=== PATIENT | female | born 1985 | race Caucasian/White ===

== ENCOUNTER → 2017-12-05 08:13 | Outpatient (CLI) | payer OTHER, SELFPAY ==
[2017-12-08 14:14] LABS: HPV Reflexed? NOT INDICATED
== END ==
PROVIDERS: Family Provider Nurse Practitioner; PCP Nurse Practitioner; Visit Provider Obstetrics & Gynecology
DX: Z12.4 Encounter for screening for malignant neoplasm of cervix (principal)
CPT/HCPCS: 88175; G0145

== ENCOUNTER → 2017-12-20 09:40 | Outpatient (CLI) | payer OTHER, SELFPAY ==
[2017-12-20 11:00] LABS: Valproic Acid (Depakene) Level 96 ug/mL (50-100)
[2017-12-20 11:24] LABS: Free T3 3.1 pg/mL (2.18-3.98); T4 Free Direct 1.13 ng/dL (0.76-1.46); Thyroid Stim Hormone (TSH) < 0.01 uIU/mL (0.358-3.74)
== END ==
PROVIDERS: Family Provider Nurse Practitioner; PCP Nurse Practitioner; Visit Provider Nurse Practitioner
DX: E03.9 Hypothyroidism, unspecified (principal); Z51.81 Encounter for therapeutic drug level monitoring
CPT/HCPCS: 36415; 80164; 84439; 84443; 84481

== ENCOUNTER → 2018-01-27 12:44 | Outpatient (CLI) | payer OTHER, SELFPAY ==
[2018-01-27 13:44] LABS: Absolute Lymphocyte Count 3.27 X10^3/ul (0.83-4.51); Absolute Neutrophil Count 3.3 X10^3/uL (2.0-7.7); Basophil# 0.03 X10^3/uL; Basophil% 0.4 % (0-1); Eosinophil# 0.12 X10^3/uL; Eosinophils% 1.7 % (0-5); Hemoglobin 11.6 g/dl (12.0-15.0); Lymphocyte # 3.27 X10^3/ul (4.0); Mean Corp Hgb Conc 31.4 g/gl (32-36); Mean Corpuscular Hgb 25.4 pg (27.0-32.0); Mean Corpuscular Volume 81.1 fL (81-99); Mean Platelet Vol. 10.1 fl (6.2-12.0); Monocyte# 0.51 X10^3/uL; Neutrophil # 3.34 X10^3/uL (2.7-7.7); Neutrophil % 45.9 % (47-70); POSITIVE COUNT NO; POSITIVE DIFFERENTIAL NO; POSITIVE MORPHOLOGY NO; Platelet Count 184 K/mm3 (150-450); RBC Distribution Width CV 13.8 % (11.6-14.6); RBC Distribution Width SD 40.9 fl (35.1-43.9); Red Blood Count 4.56 M/mm3 (4.2-5.4); White Blood Count 7.3 K/mm3 (4.4-11.0)
[2018-01-27 14:34] LABS: Anion Gap 6 (5-15); BUN 6 mg/dL (7-18); BUN/Creat Ratio 7.3 RATIO (10-20); Calcium,Total 8.8 mg/dL (8.5-10.1); Chloride 107 mmol/L (98-107); Creatinine, Serum 0.82 mg/dL (0.55-1.02); EST Glomerular Filtration Rate 84 mL/min (>60); Est Glom Filt Rate - Afr Amer 102 mL/min (>60); Free T3 2.3 pg/mL (2.18-3.98); Glucose 90 mg/dL (74-106); Potassium 4.3 mmol/L (3.5-5.1); Sodium Level 140 mmol/L (136-145); T4 Free Direct 0.86 ng/dL (0.76-1.46); Thyroid Stim Hormone (TSH) 1.48 uIU/mL (0.358-3.74)
== END ==
PROVIDERS: Family Provider Nurse Practitioner; PCP Nurse Practitioner; Visit Provider Nurse Practitioner
DX: E03.9 Hypothyroidism, unspecified (principal); R53.83 Other fatigue
CPT/HCPCS: 36415; 80048; 84439; 84443; 84481; 85025

== ENCOUNTER → 2018-03-10 13:32 | Outpatient (CLI) | payer OTHER, SELFPAY ==
[2018-03-10 15:09] LABS: ALB/GLOB Ratio 1.1 RATIO (0.9-2.4); AST(SGOT) 15 U/L (15-37); Alanine Aminotransfer ALT/SGPT 24 U/L (13-56); Albumin, Serum 3.9 g/dL (3.2-5.0); Alkaline Phosphatase 80 U/L (45-117); Anion Gap 8 (5-15); BUN 7 mg/dL (7-18); BUN/Creat Ratio 7.6 RATIO (10-20); Calcium,Total 8.1 mg/dL (8.5-10.1); Chloride 107 mmol/L (98-107); Creatinine, Serum 0.92 mg/dL (0.55-1.02); EST Glomerular Filtration Rate 74 mL/min (>60); Est Glom Filt Rate - Afr Amer 89 mL/min (>60); Globulin 3.5 g/dL (2.2-4.2); Glucose 114 mg/dL (74-106); Potassium 3.8 mmol/L (3.5-5.1); Protein, Total 7.4 g/dL (6.4-8.2); Sodium Level 143 mmol/L (136-145); T4 Free Direct 0.84 ng/dL (0.76-1.46); Thyroid Stim Hormone (TSH) 3.86 uIU/mL (0.358-3.74)
== END ==
PROVIDERS: Family Provider Nurse Practitioner; PCP Nurse Practitioner; Visit Provider Nurse Practitioner
DX: R10.84 Generalized abdominal pain (principal); E03.9 Hypothyroidism, unspecified
CPT/HCPCS: 36415; 80053; 84439; 84443; 84481

== ENCOUNTER → 2018-03-20 10:34 | Outpatient (CLI) | payer OTHER, SELFPAY ==
[2018-03-20 11:59] LABS: PTHIN 82.5 pg/mL (18.4-80.1)
== END ==
PROVIDERS: Family Provider Nurse Practitioner; PCP Nurse Practitioner; Visit Provider Nurse Practitioner
DX: E04.1 Nontoxic single thyroid nodule (principal); E83.51 Hypocalcemia
CPT/HCPCS: 36415; 76536; 83970

== ENCOUNTER → 2018-10-09 13:12 | Outpatient (CLI) | payer OTHER, SELFPAY ==
[2018-10-09 13:41] LABS: Hematocrit 39.4 % (37-47); Hemoglobin 12.4 g/dl (12.0-15.0); Mean Corp Hgb Conc 31.5 g/gl (32-36); Mean Corpuscular Hgb 26.5 pg (27.0-32.0); Mean Corpuscular Volume 84.2 fL (81-99); Mean Platelet Vol. 10.3 fl (6.2-12.0); Platelet Count 211 K/mm3 (150-450); RBC Distribution Width CV 14.7 % (11.6-14.6); RBC Distribution Width SD 44.1 fl (35.1-43.9); Red Blood Count 4.68 M/mm3 (4.2-5.4); White Blood Count 6.6 K/mm3 (4.4-11.0)
[2018-10-09 13:43] LABS: Scan Indicated on CBC? Y/N NO
[2018-10-09 14:19] LABS: ALB/GLOB Ratio 1.1 RATIO (0.9-2.4); AST(SGOT) 25 U/L (15-37); Alanine Aminotransfer ALT/SGPT 32 U/L (13-56); Albumin, Serum 3.9 g/dL (3.2-5.0); Alkaline Phosphatase 77 U/L (45-117); Anion Gap 9 (5-15); BUN 10 mg/dL (7-18); Calcium,Total 8.1 mg/dL (8.5-10.1); Chloride 106 mmol/L (98-107); Creatinine, Serum 0.91 mg/dL (0.55-1.02); EST Glomerular Filtration Rate 75 mL/min (>60); Est Glom Filt Rate - Afr Amer 90 mL/min (>60); Free T3 2.3 pg/mL (2.18-3.98); Globulin 3.5 g/dL (2.2-4.2); Glucose 105 mg/dL (74-106); Potassium 3.8 mmol/L (3.5-5.1); Protein, Total 7.4 g/dL (6.4-8.2); Sodium Level 139 mmol/L (136-145); T4 Free Direct 0.98 ng/dL (0.76-1.46); Thyroid Stim Hormone (TSH) 2.31 uIU/mL (0.358-3.74)
== END ==
PROVIDERS: Family Provider Nurse Practitioner; PCP Nurse Practitioner; Referring Provider Nurse Practitioner; Visit Provider Nurse Practitioner
DX: E03.9 Hypothyroidism, unspecified (principal); R53.83 Other fatigue
CPT/HCPCS: 36415; 80053; 84439; 84443; 84481; 85027

== ENCOUNTER → 2019-02-20 09:20 | Outpatient (CLI) | payer OTHER, SELFPAY ==
--- NOTE | 2019-02-20 09:23 | US_ITS ---
STUDY: ULTRASOUND BREAST - RIGHT REASON FOR EXAM: Female, 33 years old. Palpable lump in the right breast. TECHNIQUE: Axial and longitudinal images of the RIGHT breast were performed with a high resolution ultrasound transducer. COMPARISON: Comparison is made with prior mammogram done earlier in the day. FINDINGS: RIGHT Breast: The lower inner aspect of the right breast was examined by ultrasound. No sonographic abnormality is seen. US/Breast Limited Unilateral IMPRESSION: No sonographic abnormality is seen. ASSESSMENT CATEGORY: BIRADS Category 1: Negative. A letter regarding these results will be sent to the patient by the facility within 30 days. Electronically Signed: Bobby Delgado, at 12:38 EDT , Service support ,
--- NOTE | 2019-02-20 09:23 | BI_ITS ---
MAMMOGRAPHY - BILATERAL DIAGNOSTIC REASON FOR EXAM: Female, 33 years old. Right breast lump at the 3:00 position. PERTINENT HISTORY: Grandmother with breast cancer. TECHNIQUE: Digital bilateral breast narayan (3D mammographic acquisition) in the CC and MLO projections. 2-D mediolateral oblique (MLO) and craniocaudad (CC) views of both breasts were obtained. CAD: Full Field Digital Mammography with Computer Added Detection was performed. COMPARISON: Comparison is made with prior osseous examination dated December 16, 2016. FINDINGS: Breast Composition: There are scattered areas of fibroglandular density. There are no dominant masses or suspicious calcifications. No other significant abnormalities are identified. There has been no significant change since the prior study. BI/DIAG MAMM W/CAD, BILAT IMPRESSION: Stable bilateral diagnostic mammogram. With the patient's history of a palpable abnormality in the right breast, correlation with ultrasound is recommended. ASSESSMENT CATEGORY: BIRADS Category 0: Incomplete. Need additional imaging evaluation. A letter regarding these results will be sent to the patient by the facility within 30 days. Approximately 10% of breast cancers are not detected by mammography. A normal mammogram should not delay biopsy of a clinically suspicious abnormality. Electronically Signed: Bobby Delgado, at 11:19 EDT , Service support ,
== END ==
PROVIDERS: Family Provider Internal Medicine; PCP Internal Medicine; Referring Provider Obstetrics & Gynecology; Visit Provider Obstetrics & Gynecology
DX: N63.12 Unspecified lump in the right breast, upper inner quadrant (principal)
CPT/HCPCS: 76642; 77062; 77066; G0279

== ENCOUNTER → 2019-03-19 10:49 | Outpatient (CLI) | payer OTHER, SELFPAY ==
[2019-03-19 13:03] LABS: PTHIN 72.4 pg/mL (18.4-80.1)
[2019-03-19 13:15] LABS: ALB/GLOB Ratio 1.2 RATIO (0.9-2.4); AST(SGOT) 17 U/L (15-37); Alanine Aminotransfer ALT/SGPT 24 U/L (13-56); Alkaline Phosphatase 80 U/L (45-117); Anion Gap 7 (5-15); BUN 10 mg/dL (7-18); BUN/Creat Ratio 11.1 RATIO (10-20); Calcium,Total 8.7 mg/dL (8.5-10.1); Chloride 105 mmol/L (98-107); EST Glomerular Filtration Rate 75 mL/min (>60); Est Glom Filt Rate - Afr Amer 91 mL/min (>60); Free T3 2.9 pg/mL (2.18-3.98); Globulin 3.3 g/dL (2.2-4.2); Glucose 85 mg/dL (74-106); Potassium 4.2 mmol/L (3.5-5.1); Protein, Total 7.3 g/dL (6.4-8.2); Sodium Level 138 mmol/L (136-145); T4 Free Direct 1.11 ng/dL (0.76-1.46); Thyroid Stim Hormone (TSH) 0.31 uIU/mL (0.358-3.74)
== END ==
PROVIDERS: Family Provider Internal Medicine; PCP Internal Medicine; Referring Provider Nurse Practitioner; Visit Provider Nurse Practitioner
DX: E03.9 Hypothyroidism, unspecified (principal); E83.52 Hypercalcemia
CPT/HCPCS: 36415; 80053; 83970; 84439; 84443; 84481

== ENCOUNTER → 2020-03-24 | Outpatient (CLI) | payer OTHER, SELFPAY ==
--- NOTE | 2020-03-24 12:50 | BI_ITS ---
MAMMOGRAPHY - BILATERAL SCREENING 3-D TOMOSYNTHESIS REASON FOR EXAM: Female, 34 years old. Routine screening PERTINENT HISTORY: FM HX MAT GMA 55-60, 7-16-19 BILAT DX AND RT U/S =NEG, PT HAS HAD SAME LUMP X 4 YRS UNCHANGED PER PT. TECHNIQUE: 2-D mammograms and 3-D Tomosynthesis of the breast (s) were performed. CAD was performed. COMPARISON: 02/20/2019 FINDINGS: The breast composition is composed of scattered fibroglandular density. Scattered benign calcifications are seen. No dense spiculated masses or suspicious microcalcifications are identified. No architectural distortion is identified. There is no skin thickening or retraction. There has been no significant change since the prior study. BI/SCREEN MAMM (CAD) W/ANN MARIE BILAT IMPRESSION: No mammographic signs of malignancy. Routine yearly mammograms recommended. ASSESSMENT CATEGORY: BIRADS Category 1: Negative. A letter regarding these results will be sent to the patient by the facility within 30 days. FOLLOW UP RECOMMENDATION: Yearly follow up mammogram recommended. (A) Approximately 10% of breast cancers are not detected by mammography. A normal mammogram should not delay biopsy of a clinically suspicious abnormality. Electronically Signed: Dakota Reilly MD at 13:57 EDT , Service support ,
== END | disposition home or self-care (01) ==
LOC: OPBI 12:48
PROVIDERS: PCP Internal Medicine; Referring Provider Obstetrics & Gynecology; Visit Provider Obstetrics & Gynecology
DX: Z12.31 Encounter for screening mammogram for malignant neoplasm of breast (principal)
CPT/HCPCS: 77063; 77067

== ENCOUNTER 2020-08-17 12:16 | Emergency (ER) | payer BC, SELFPAY ==
[2020-08-17 12:18] VITALS: BP 149/95; PULSE 92; RESP 18; TEMP 36.1; O2SAT 99; BMI 33.0
--- NOTE | 2020-08-17 12:48 | CT_ITS ---
STUDY: CT BRAIN WITHOUT CONTRAST REASON FOR EXAM: Female, 34 years old. Right sided neck pain radiating into head x 3 days, right eye vision problems. Denies injury. RADIATION DOSAGE (If Supplied By Facility): CTDIvol = ( 44.99 ) mGy, DLP = ( 779.24 ) mGycm TECHNIQUE: Transaxial CT imaging of the brain was performed without administration of intravenous contrast material. Individualized dose optimization techniques were used for this CT. COMPARISON: No relevant priors. FINDINGS: Normal soft tissue structures. Normal calvarium. There is asymmetry of the ventricles consistent with an anatomic variant. Normal white matter tracts of the cerebral hemispheres. Normal basal ganglia and thalami. Normal brainstem. Normal cerebellum. There is no intracranial hemorrhage. There are no findings of an acute ischemic infarction. Normal visualized paranasal sinuses. CT/Brain/Head without Contrast IMPRESSION: Normal unenhanced CT scan of the brain. Electronically Signed: Gurpreet Flynn MD at 14:22 EST , Service support ,
--- NOTE | 2020-08-17 12:49 | ED.DCSUM_ITS ---
- ER Visit Summary Date of Service: 08/17/20 Chief Complaint: Headache History of Present Illness: The patient is a 34 F who presents with right-sided headache that has been getting worse over the past 3 days. Patient describes the pain as sharp. Patient states the pain starts in her right occipital area behind her ear and radiates to the right temporal area. Patient admits to some blurred vision in her right eye. Patient also admits to right ear pain. Patient states her headache is worse whenever she exercises. Patient states nothing has been helping. Patient admits to nausea but denies any vomiting. Physical Examination: Vital signs are stable. Patient is afebrile. Patient is in no acute distress. There is some mild tenderness over the right occipital area. There is no tenderness over the mastoid process. There is no tenderness over the right temporal artery. Pupils are equal, round, and reactive to light bilaterally. Extraocular muscles are intact. Oral mucosa is pink and moist. Neck is supple. Trachea is midline. There is no JVD. Heart was regular rate and rhythm. Lungs are clear and equal bilaterally. Abdomen is soft. Bowel sounds are normal. There is no tenderness. Cranial nerves II through XII are intact. There are no focal motor or sensory deficits. Test Results: CT scan of the brain was obtained. There is no acute intracranial abnormality noted. This was interpreted by the radiologist and reviewed by juan carlos nelson. Emergency Department Course and Treatment: Patient was given IV fluids, Reglan, and Benadryl. Patient states her headache was improved. Patient was given a dose of Toradol here. Patient was instructed to rest in a dark quiet room. Patient was instructed to follow-up with her primary care physician in 5 to 7 days. Patient understood and was agreeable with the plan. All questions were answered. Disposition: Discharge home Impression: 1. Headache This note was generated with [employer] dictation software. It may contain incorrect words, spelling, and punctuation that were not noted in review of the chart prior to signing ED Disposition - Plan for ED Patient: Disposition: Home or Assisted Living Diagnosis: Headache Instructions: ED, Migraine (Classical) Referrals: Lina Joaquin DO [Primary Care Provider] - 5-7 Days
[2020-08-17] MEDS: 0.9% Normal Saline 1,000 ML 999 ML IV (12:59)
[2020-08-17] MEDS: DiphenhydrAMINE 50 MG/ML Syringe 25 MG IV (13:00)
[2020-08-17] MEDS: Metoclopramide 10 MG/2 ML Vial IV (13:00)
[2020-08-17 14:18] VITALS: BP 132/75; PULSE 71; RESP 18; O2SAT 98
== END 2020-08-17 15:27 | disposition home or self-care (01) ==
PROVIDERS: Emergency Provider Emergency Medicine; PCP Internal Medicine
DX: R51.9 Headache, unspecified (principal); E03.9 Hypothyroidism, unspecified
CPT/HCPCS: 70450; 96361; 96374; 96375; 99283; J7030

== ENCOUNTER → 2020-11-25 10:29 | Outpatient (CLI) | payer BC, SELFPAY ==
--- NOTE | 2020-11-25 10:51 | US_ITS ---
STUDY: THYROID ULTRASOUND REASON FOR EXAM: Female, 35 years old. THYROID DISORDER TECHNIQUE: Ultrasound evaluation of the thyroid was performed with real-time and static smith-scale imaging. COMPARISON: 03/20/2018 FINDINGS: RIGHT LOBE: The right lobe of the thyroid gland measures 4.4 x 1.2 x 1.4 cm. There is a heterogeneous echotexture. Nodule 1: No change in the 5 mm of a solid hyperechoic wider than tall ill-defined marginated nodule with no echogenic foci (TR 2) in the inferior right lobe consistent with an adenoma. LEFT LOBE: The left lobe of the thyroid gland measures 4.1 x 1.4 x 1.1 cm. There is a heterogeneous echotexture. There are no demonstrated solid, cystic or complex lesions. ISTHMUS: The isthmus measures 4 mm thick. . The regional lymph nodes are normal. US/Thyroid IMPRESSION: Thyroiditis with no change in the small adenoma in the inferior right lobe. Electronically Signed: Isaias Mendoza MD at 13:31 EDT Tel , Service support ,
[2020-11-25 11:50] LABS: Absolute Lymphocyte Count 2.46 X10^3/uL (0.83-4.51); Absolute Neutrophil Count 3.3 X10^3/uL (2.0-7.7); Basophil# 0.03 X10^3/uL; Basophil% 0.5 % (0-1); Eosinophil# 0.06 X10^3/uL; Hematocrit 35.9 % (37-47); Hemoglobin 10.8 g/dL (12.0-15.0); Lymphocyte # 2.46 X10^3/ul (0.83-4.51); Lymphocyte % 39.8 % (19-41); Mean Corp Hgb Conc 30.1 g/dL (32-36); Mean Corpuscular Hgb 25.2 pg (27.0-32.0); Mean Corpuscular Volume 83.7 fL (81-99); Mean Platelet Vol. 9.9 fl (6.2-12.0); Monocyte# 0.31 X10^3/uL; NRBC Flagged by Analyzer 0 % (0-5); Neutrophil % 53.4 % (47-70); Platelet Count 265 K/mm3 (150-450); RBC Distribution Width SD 42.5 fl (35.1-43.9); Red Blood Count 4.29 M/mm3 (4.2-5.4); White Blood Count 6.2 K/mm3 (4.4-11.0)
[2020-11-25 12:35] LABS: ALB/GLOB Ratio 1.1 RATIO (0.9-2.4); AST(SGOT) 12 U/L (15-37); Alanine Aminotransfer ALT/SGPT 21 U/L (13-56); Albumin, Serum 3.8 g/dL (3.2-5.0); Alkaline Phosphatase 85 U/L (45-117); Anion Gap 8 (5-15); BUN 8 mg/dL (7-18); BUN/Creat Ratio 9.9 RATIO (10-20); Calcium,Total 8.4 mg/dL (8.5-10.1); Chloride 105 mmol/L (98-107); Cholesterol 190 mg/dL (200); Creatinine, Serum 0.81 mg/dL (0.55-1.02); EST Glomerular Filtration Rate 84 mL/min (>60); Est Glom Filt Rate - Afr Amer 102 mL/min (>60); Ferritin 4 ng/mL (8-252); Free T3 2.7 pg/mL (2.18-3.98); Globulin 3.4 g/dL (2.2-4.2); Glucose 104 mg/dL (74-106); High Density Lipoprotein 40 mg/dL; Iron 23 ug/dL (50-170); Iron Binding Capacity,Total 418 ug/dL (250-450); Protein, Total 7.2 g/dL (6.4-8.2); Sodium Level 139 mmol/L (136-145); T4 Free Direct 1.16 ng/dL (0.76-1.46); Thyroid Stim Hormone (TSH) 0.22 uIU/mL (0.358-3.74); Triglycerides 204 mg/dL; Very Low Density Lipoprotein 41 mg/dL (5-40)
[2020-11-25 13:01] LABS: Hemoglobin A1c 5.4 % (3.8-5.6)
[2020-11-25 13:26] LABS: Vitamin D,25 Hydroxy 20.5 ng/mL
== END ==
PROVIDERS: PCP Internal Medicine; Referring Provider Internal Medicine; Visit Provider Internal Medicine
DX: Z00.00 Encounter for general adult medical examination without abnormal findings (principal); Z13.220 Encounter for screening for lipoid disorders; Z13.1 Encounter for screening for diabetes mellitus; Z12.39 Encounter for other screening for malignant neoplasm of breast; E07.9 Disorder of thyroid, unspecified; R53.83 Other fatigue
CPT/HCPCS: 36415; 76536; 80053; 80061; 82306; 82728; 83036; 83540; 83550; 84439; 84443; 84481; 85025

== ENCOUNTER → 2021-05-29 | Outpatient (CLI) | payer BC, SELFPAY ==
[2021-06-04 16:54] LABS: HPV APTIMA, High Risk Negative (Negative); HPV Reflexed? YES, CHARGE PATIENT
== END | disposition home or self-care (01) ==
LOC: LABSPEC 14:04
PROVIDERS: PCP Internal Medicine; Visit Provider Obstetrics & Gynecology
DX: Z12.4 Encounter for screening for malignant neoplasm of cervix (principal)
CPT/HCPCS: 87624; 88175; G0145

== ENCOUNTER → 2021-06-23 12:17 | Outpatient (CLI) | payer BC, SELFPAY ==
--- NOTE | 2021-06-23 12:19 | BI_ITS ---
MAMMOGRAPHY - BILATERAL SCREENING REASON FOR EXAM: Female, 35 years old. Routine annual screening examination. PERTINENT HISTORY: Grandmother with breast cancer. TECHNIQUE: Digital bilateral breast ann marie (3D mammographic acquisition) in the CC and MLO projections. 2-D mediolateral oblique (MLO) and craniocaudad (CC) views of both breasts were obtained. CAD: Full Field Digital Mammography with Computer Added Detection was performed. COMPARISON: Comparison is made with prior study dated 03/24/2020 and 02/20/2019. FINDINGS: Breast Composition: There are scattered areas of fibroglandular density. There are no dominant masses or suspicious calcifications. No other significant abnormalities are identified. There has been no significant change since the prior study. BI/SCRN MAMM (CAD)W/ANN MARIE BILAT IMPRESSION: Stable bilateral screening mammogram. Yearly follow-up mammogram recommended. (A) ASSESSMENT CATEGORY: BIRADS Category 1: Negative. A letter regarding these results will be sent to the patient by the facility within 30 days. Approximately 10% of breast cancers are not detected by mammography. A normal mammogram should not delay biopsy of a clinically suspicious abnormality. [id number] Electronically Signed: Bobby Delgado MD at 13:20 EST , Service support ,
== END ==
PROVIDERS: PCP Internal Medicine; Referring Provider Obstetrics & Gynecology; Visit Provider Obstetrics & Gynecology
DX: Z12.31 Encounter for screening mammogram for malignant neoplasm of breast (principal)
CPT/HCPCS: 77063; 77067

== ENCOUNTER → 2022-01-12 | Outpatient (CLI) | payer BC, SELFPAY ==
[2022-01-12 14:12] LABS: ALB/GLOB Ratio 1.2 RATIO (0.9-2.4); AST(SGOT) 16 U/L (15-37); Alanine Aminotransfer ALT/SGPT 25 U/L (13-56); Alkaline Phosphatase 69 U/L (45-117); Anion Gap 5 (5-15); BUN 12 mg/dL (7-18); BUN/Creat Ratio 14.2 RATIO (10-20); Calcium,Total 8.6 mg/dL (8.5-10.1); Chloride 105 mmol/L (98-107); Cholesterol 201 mg/dL (200); Creatinine, Serum 0.85 mg/dL (0.55-1.02); EST Glomerular Filtration Rate 80 mL/min (>60); Est Glom Filt Rate - Afr Amer 96 mL/min (>60); Globulin 3.2 g/dL (2.2-4.2); Glucose 89 mg/dL (74-106); High Density Lipoprotein 44 mg/dL; Potassium 4.1 mmol/L (3.5-5.1); Protein, Total 7.2 g/dL (6.4-8.2); Sodium Level 137 mmol/L (136-145); T4 Free Direct 0.94 ng/dL (0.76-1.46); Thyroid Stim Hormone (TSH) 1.51 uIU/mL (0.358-3.74); Triglycerides 244 mg/dL; Very Low Density Lipoprotein 49 mg/dL (5-40)
== END | disposition home or self-care (01) ==
LOC: LAB 13:04
PROVIDERS: PCP Internal Medicine; Referring Provider Internal Medicine; Visit Provider Internal Medicine
DX: Z13.220 Encounter for screening for lipoid disorders (principal)
CPT/HCPCS: 36415; 80053; 80061; 84439; 84443

== ENCOUNTER → 2022-01-12 | Outpatient (CLI) | payer BC, SELFPAY ==
--- NOTE | 2022-01-12 12:36 | US_ITS ---
STUDY: THYROID ULTRASOUND REASON FOR EXAM: Female, 36 years old. THYROID PAIN TECHNIQUE: Ultrasound evaluation of the thyroid was performed with real-time and static smith-scale imaging. COMPARISON: Comparison is made with prior examination 11/25/2020. FINDINGS: RIGHT LOBE: The right lobe of the thyroid gland measures 3.5 cm x 1.3 cm x 1.3 cm. There is a heterogeneous echotexture. There are no demonstrated solid, cystic or complex lesions. LEFT LOBE: The left lobe of the thyroid gland measures 3.8 cm x 1.2 cm x 1.2 cm. There is a heterogeneous echotexture. There are no demonstrated solid, cystic or complex lesions. ISTHMUS: The isthmus measures 5 mm. There is evidence of a 2.7 cm x 1.3 cm x 0.6 cm benign appearing right cervical lymph node. US/Thyroid IMPRESSION: Heterogeneous echotexture of both lobes of the thyroid. Findings suggestive of a benign-appearing 2.7 cm x 1.3 cm x 0.6 cm right cervical lymph node. Electronically Signed: Bobby Delgado MD at 14:02 EDT ,
== END | disposition home or self-care (01) ==
PROVIDERS: PCP Internal Medicine; Visit Provider Internal Medicine
DX: E04.2 Nontoxic multinodular goiter (principal); E07.89 Other specified disorders of thyroid
CPT/HCPCS: 76536

== ENCOUNTER → 2022-04-27 | Outpatient (CLI) | payer BC, SELFPAY ==
[2022-04-27 10:30] LABS: Internal QC Validated? YES +Cl - CLEAR BKGD; Pregnancy, Serum, hCG Quali. NEGATIVE Negative
[2022-04-27 10:43] LABS: AST(SGOT) 14 U/L (15-37); Alanine Aminotransfer ALT/SGPT 22 U/L (13-56); Cholesterol 170 mg/dL (200); High Density Lipoprotein 39 mg/dL; Triglycerides 141 mg/dL; Very Low Density Lipoprotein 28 mg/dL (5-40)
== END | disposition home or self-care (01) ==
LOC: LAB 09:28
PROVIDERS: PCP Internal Medicine; Visit Provider Dermatology
DX: L70.0 Acne vulgaris (principal); L90.5 Scar conditions and fibrosis of skin; Z79.899 Other long term (current) drug therapy
CPT/HCPCS: 36415; 80061; 84450; 84460; 84703

== ENCOUNTER → 2022-05-27 | Outpatient (CLI) | payer BC, SELFPAY ==
[2022-05-27 11:06] LABS: Internal QC Validated? YES +Cl - CLEAR BKGD; Pregnancy, Urine Negative Negative
== END | disposition home or self-care (01) ==
LOC: LAB 09:49
PROVIDERS: PCP Internal Medicine; Visit Provider Dermatology
DX: L70.0 Acne vulgaris (principal); L90.5 Scar conditions and fibrosis of skin; L23.3 Allergic contact dermatitis due to drugs in contact with skin; Z79.899 Other long term (current) drug therapy
CPT/HCPCS: 81025

== ENCOUNTER → 2022-06-22 | Outpatient (CLI) | payer BC, SELFPAY ==
[2022-06-22 12:11] LABS: Internal QC Validated? YES +Cl - CLEAR BKGD; Pregnancy, Urine Negative Negative
== END | disposition home or self-care (01) ==
LOC: LAB 11:42
PROVIDERS: PCP Internal Medicine; Referring Provider Dermatology; Visit Provider Dermatology
DX: L70.0 Acne vulgaris (principal); L90.5 Scar conditions and fibrosis of skin; Z79.899 Other long term (current) drug therapy; K13.0 Diseases of lips; L23.3 Allergic contact dermatitis due to drugs in contact with skin
CPT/HCPCS: 36415; 81025

== ENCOUNTER → 2022-07-23 | Outpatient (CLI) | payer BC, SELFPAY ==
[2022-07-23 11:30] LABS: Internal QC Validated? YES +Cl - CLEAR BKGD
[2022-07-23 11:35] LABS: Pregnancy, Serum, hCG Quali. NEGATIVE Negative
[2022-07-23 11:46] LABS: AST(SGOT) 14 U/L (15-37); Alanine Aminotransfer ALT/SGPT 24 U/L (13-56); Cholesterol 248 mg/dL (200); High Density Lipoprotein 43 mg/dL; Triglycerides 282 mg/dL; Very Low Density Lipoprotein 56 mg/dL (5-40)
== END | disposition home or self-care (01) ==
LOC: LAB 10:49
PROVIDERS: PCP Internal Medicine; Referring Provider Dermatology; Visit Provider Dermatology
DX: L70.0 Acne vulgaris (principal); L90.5 Scar conditions and fibrosis of skin; K13.0 Diseases of lips; L23.3 Allergic contact dermatitis due to drugs in contact with skin; Z79.899 Other long term (current) drug therapy
CPT/HCPCS: 36415; 80061; 84450; 84460; 84703

== ENCOUNTER → 2022-08-16 | Outpatient (CLI) | payer BC, SELFPAY ==
--- NOTE | 2022-08-16 12:04 | BI_ITS ---
MAMMOGRAPHY - BILATERAL SCREENING REASON FOR EXAM: Female, 36 years old. Routine annual screening examination. PERTINENT HISTORY: Grandmother with breast cancer. TECHNIQUE: Digital bilateral breast ann marie (3D mammographic acquisition) in the CC and MLO projections. 2-D mediolateral oblique (MLO) and craniocaudad (CC) views of both breasts were obtained. CAD: Full Field Digital Mammography with Computer Added Detection was performed. COMPARISON: Comparison is made with prior study of 06/23/2021 and 03/24/2020. FINDINGS: Breast Composition: There are scattered areas of fibroglandular density. There are no dominant masses or suspicious calcifications. No other significant abnormalities are identified. There has been no significant change since the prior study. BI/SCRN MAMM (CAD)W/ANN MARIE BILAT IMPRESSION: Stable bilateral screening mammogram. Yearly follow-up mammogram recommended. (A) ASSESSMENT CATEGORY: BIRADS Category 1: Negative. A letter regarding these results will be sent to the patient by the facility within 30 days. Approximately 10% of breast cancers are not detected by mammography. A normal mammogram should not delay biopsy of a clinically suspicious abnormality. [id number] Electronically Signed: Bobby Delgado MD at 14:18 EST ,
== END | disposition home or self-care (01) ==
LOC: OPBI 12:02
PROVIDERS: PCP Internal Medicine; Referring Provider Obstetrics & Gynecology; Visit Provider Obstetrics & Gynecology
DX: Z12.31 Encounter for screening mammogram for malignant neoplasm of breast (principal)
CPT/HCPCS: 77063; 77067

== ENCOUNTER → 2022-08-26 | Outpatient (CLI) | payer BC, SELFPAY ==
[2022-08-26 16:41] LABS: T4 Free Direct 0.96 ng/dL (0.76-1.46); Thyroid Stim Hormone (TSH) 2.38 uIU/mL (0.358-3.74)
[2022-08-26 16:49] LABS: hCG Titer Quant., Serum < 1 mIU/mL (1-3)
== END | disposition home or self-care (01) ==
LOC: LAB 14:37
PROVIDERS: PCP Internal Medicine; Referring Provider Dermatology; Visit Provider Dermatology
DX: E04.2 Nontoxic multinodular goiter (principal); L70.0 Acne vulgaris; L90.5 Scar conditions and fibrosis of skin; L23.3 Allergic contact dermatitis due to drugs in contact with skin; K13.0 Diseases of lips; Z79.899 Other long term (current) drug therapy
CPT/HCPCS: 36415; 84439; 84443; 84702

== ENCOUNTER → 2022-09-23 | Outpatient (CLI) | payer BC, SELFPAY ==
[2022-09-23 11:33] LABS: Internal QC Validated? YES +Cl - CLEAR BKGD; Pregnancy, Urine Negative Negative
== END | disposition home or self-care (01) ==
PROVIDERS: PCP Internal Medicine; Visit Provider Dermatology
DX: Z79.899 Other long term (current) drug therapy (principal)
CPT/HCPCS: 81025

== ENCOUNTER → 2022-10-29 | Outpatient (CLI) | payer BC, SELFPAY ==
[2022-10-29 16:14] LABS: Internal QC Validated? YES +Cl - CLEAR BKGD; Pregnancy, Urine Negative Negative
== END | disposition home or self-care (01) ==
LOC: LAB 15:30
PROVIDERS: PCP Internal Medicine; Referring Provider Dermatology; Visit Provider Dermatology
DX: Z79.899 Other long term (current) drug therapy (principal); L70.0 Acne vulgaris; L90.5 Scar conditions and fibrosis of skin; L23.3 Allergic contact dermatitis due to drugs in contact with skin; K13.0 Diseases of lips
CPT/HCPCS: 81025

== ENCOUNTER → 2022-12-01 | Outpatient (CLI) | payer BC, SELFPAY ==
[2022-12-01 15:30] LABS: Internal QC Validated? YES +Cl - CLEAR BKGD; Pregnancy, Urine Negative Negative
== END | disposition home or self-care (01) ==
LOC: LAB 14:33
PROVIDERS: PCP Internal Medicine; Visit Provider Dermatology
DX: Z79.899 Other long term (current) drug therapy (principal); L70.0 Acne vulgaris; L90.5 Scar conditions and fibrosis of skin; L23.3 Allergic contact dermatitis due to drugs in contact with skin; K13.0 Diseases of lips
CPT/HCPCS: 81025

== ENCOUNTER → 2022-12-15 | Outpatient (CLI) | payer BC, SELFPAY ==
[2022-12-15 11:20] LABS: Absolute Lymphocyte Count 1.95 X10^3/uL (0.83-4.51); Absolute Neutrophil Count 4.9 X10^3/uL (2.0-7.7); Basophil# 0.03 X10^3/uL; Basophil% 0.4 % (0-1); Eosinophil# 0.05 X10^3/uL; Eosinophils% 0.7 % (0-5); Hematocrit 39.1 % (37-47); Hemoglobin 12.8 g/dL (12.0-15.0); Lymphocyte # 1.95 X10^3/ul (0.83-4.51); Lymphocyte % 26.2 % (19-41); Mean Corp Hgb Conc 32.7 g/dL (32-36); Mean Corpuscular Hgb 28.6 pg (27.0-32.0); Mean Corpuscular Volume 87.5 fL (81-99); Mean Platelet Vol. 9.2 fl (6.2-12.0); Monocyte# 0.52 X10^3/uL; NRBC Flagged by Analyzer 0 % (0-5); Neutrophil # 4.88 X10^3/uL (2.7-7.7); Neutrophil % 65.4 % (47-70); Platelet Count 223 K/mm3 (150-450); RBC Distribution Width CV 14.1 % (11.6-14.6); RBC Distribution Width SD 45.6 fl (35.1-43.9); Red Blood Count 4.47 M/mm3 (4.2-5.4); White Blood Count 7.5 K/mm3 (4.4-11.0)
[2022-12-15 11:45] LABS: Vitamin B12 332 pg/mL (211-911); Vitamin D,25 Hydroxy 114.7 ng/mL
[2022-12-15 11:51] LABS: ALB/GLOB Ratio 0.9 RATIO (0.9-2.4); AST(SGOT) 16 U/L (15-37); Alanine Aminotransfer ALT/SGPT 22 U/L (13-56); Albumin, Serum 3.5 g/dL (3.2-5.0); Alkaline Phosphatase 103 U/L (45-117); Anion Gap 10 (5-15); BUN 11 mg/dL (7-18); BUN/Creat Ratio 12.1 RATIO (10-20); Calcium,Total 8.4 mg/dL (8.5-10.1); Chloride 103 mmol/L (98-107); Cholesterol 179 mg/dL (200); Creatinine, Serum 0.91 mg/dL (0.55-1.02); EST Glomerular Filtration Rate 73 mL/min (>60); Est Glom Filt Rate - Afr Amer 89 mL/min (>60); Ferritin 17 ng/mL (8-252); Globulin 3.9 g/dL (2.2-4.2); Glucose 73 mg/dL (74-106); High Density Lipoprotein 35 mg/dL; Iron 78 ug/dL (50-170); Iron Binding Capacity,Total 411 ug/dL (250-450); Protein, Total 7.4 g/dL (6.4-8.2); Sodium Level 137 mmol/L (136-145); Thyroid Stim Hormone (TSH) 1.72 uIU/mL (0.358-3.74); Triglycerides 191 mg/dL; Very Low Density Lipoprotein 38 mg/dL (5-40)
== END | disposition home or self-care (01) ==
LOC: LAB 11:02
PROVIDERS: PCP Internal Medicine; Referring Provider Internal Medicine; Visit Provider Internal Medicine
DX: Z00.00 Encounter for general adult medical examination without abnormal findings (principal); Z13.220 Encounter for screening for lipoid disorders; R53.83 Other fatigue
CPT/HCPCS: 36415; 80053; 80061; 82306; 82607; 82728; 83540; 83550; 84443; 85025

== ENCOUNTER → 2023-03-11 | Outpatient (CLI) | payer BC, SELFPAY ==
[2023-03-11 11:24] LABS: Absolute Lymphocyte Count 1.68 X10^3/uL (0.83-4.51); Absolute Neutrophil Count 3.9 X10^3/uL (2.0-7.7); Basophil# 0.04 X10^3/uL; Basophil% 0.7 % (0-1); Eosinophil# 0.03 X10^3/uL; Eosinophils% 0.5 % (0-5); Hematocrit 40.6 % (37-47); Lymphocyte # 1.68 X10^3/ul (0.83-4.51); Lymphocyte % 27.7 % (19-41); Mean Corp Hgb Conc 34.5 g/dL (32-36); Mean Corpuscular Hgb 30.8 pg (27.0-32.0); Mean Corpuscular Volume 89.4 fL (81-99); Mean Platelet Vol. 9.6 fl (6.2-12.0); Monocyte# 0.43 X10^3/uL; Monocyte% 7.1 % (0-10); NRBC Flagged by Analyzer 0 % (0-5); Neutrophil # 3.87 X10^3/uL (2.7-7.7); Neutrophil % 63.7 % (47-70); Platelet Count 199 K/mm3 (150-450); RBC Distribution Width CV 12.7 % (11.6-14.6); RBC Distribution Width SD 41.2 fl (35.1-43.9); Red Blood Count 4.54 M/mm3 (4.2-5.4); White Blood Count 6.1 K/mm3 (4.4-11.0)
[2023-03-11 11:53] LABS: Vitamin B12 466 pg/mL (211-911); Vitamin D,25 Hydroxy 104.9 ng/mL
[2023-03-11 11:58] LABS: ALB/GLOB Ratio 1.1 RATIO (0.9-2.4); AST(SGOT) 15 U/L (15-37); Alanine Aminotransfer ALT/SGPT 22 U/L (13-56); Albumin, Serum 3.9 g/dL (3.2-5.0); Alkaline Phosphatase 105 U/L (45-117); Anion Gap 7 (5-15); BUN 12 mg/dL (7-18); BUN/Creat Ratio 10.8 RATIO (10-20); Calcium,Total 8.8 mg/dL (8.5-10.1); Chloride 107 mmol/L (98-107); Cholesterol 199 mg/dL (200); Creatinine, Serum 1.11 mg/dL (0.55-1.02); EST Glomerular Filtration Rate 58 mL/min (>60); Est Glom Filt Rate - Afr Amer 70 mL/min (>60); Ferritin 13 ng/mL (8-252); Globulin 3.5 g/dL (2.2-4.2); Glucose 83 mg/dL (74-106); High Density Lipoprotein 46 mg/dL; Iron 104 ug/dL (50-170); Iron Binding Capacity,Total 398 ug/dL (250-450); PERCENT IRON SATURATION 26.1 % (15.0-55.0); Potassium 3.8 mmol/L (3.5-5.1); Protein, Total 7.4 g/dL (6.4-8.2); Sodium Level 139 mmol/L (136-145); Thyroid Stim Hormone (TSH) 7.32 uIU/mL (0.358-3.74); Triglycerides 132 mg/dL; Very Low Density Lipoprotein 26 mg/dL (5-40)
== END | disposition home or self-care (01) ==
LOC: LAB 10:52
PROVIDERS: PCP Internal Medicine; Referring Provider Internal Medicine; Visit Provider Internal Medicine
DX: Z00.00 Encounter for general adult medical examination without abnormal findings (principal); Z13.220 Encounter for screening for lipoid disorders; R53.83 Other fatigue
CPT/HCPCS: 36415; 80053; 80061; 82306; 82607; 82728; 83540; 83550; 84443; 85025

== ENCOUNTER → 2023-05-18 | Outpatient (CLI) | payer BC, SELFPAY ==
[2023-05-18 14:20] LABS: Thyroid Stim Hormone (TSH) 1.12 uIU/mL (0.358-3.74)
== END | disposition home or self-care (01) ==
LOC: LAB 12:46
PROVIDERS: PCP Internal Medicine; Referring Provider Internal Medicine; Visit Provider Internal Medicine
DX: E07.9 Disorder of thyroid, unspecified (principal)
CPT/HCPCS: 36415; 84443

== ENCOUNTER → 2023-09-05 | Outpatient (CLI) | payer BC, SELFPAY ==
--- OUTSIDE RECORDS SUMMARY | 2023-09-05 11:44 | XMS RPT_ITS | CCD ---
Author Name Unknown Address [address] [place] [id number] Organization [facility] Care Team Providers Care Live Truck Operator Name Role Phone Cosme Joaquin Attending Unavailable ObCosme burrell Admitting Unavailable OberhausCosme carreno Primary Care Unavailable ObCosme burrell Admitting Unavailable OberhausCosme carreno Attending Unavailable OberhausCosme carreno Primary Care Unavailable [facility] Admitting Unavaila ble EDILMA, [facility] Attending Unavaila ble EDILMA, [facility] Primary Care Unavaila ble SHEREEWOODY MORIN Admitting Unavailable SHEREEWOODY MORIN Attending Unavailable SHEREEWOODY MORIN Primary Care Unavailable ObwaihausCosme carreno Unavailable Unavailable Unavailable Unavailable Unavailable Cosme Joaquin Unavailable [phone] Cosme Harding Unavailable Unavailable [facility] EMILIE.Pasc[facility] BANERJEE Primary Care Provider Cosme Joaquin Primary Care Provider COSME JOAQUIN Primary Care Unavailable Cosme Joaquin Primary Care Provider EMANI, DO COSME JOHN Attending Unavai lable OBERHAUSER, DO COSME JOHN Primary Care Unavai lable OBERHAUSER, DO COSME JOHN Referring Unavai lable OBERHAUSER, DO COSME JOHN Attending Unavai lable OBERHAUSER, DO COSME JOHN Primary Care Unavai lable OBERHAUSER, DO COSME JOHN Referring Unavai lable OBERHAUSER, DO COSME JOHN Attending Tad JOAQUIN, DO COSME JOHN Primary Care Tad JOAQUIN, DO COSME JOHN Referring Cosme Liz DO Primary Care Provider [phone] Cosme Joaquin DO Unavailable COSME JOAQUIN Attending Unavailable COSME JOAQUIN Primary Care Unavailable Allergies Allergy Classification Reported Allergen(s) Allergy Type Date of Onset Reaction(s) Facility Opioid Agonists (2 sources) Codeine; Translations: [Codeine] Drug Allergy Nausea, Abdominal pain [facility] Work Phone: Penicillins (antibiotic) (2 sources) Penicillins; Translations: [Penicillins] Drug Allergy Hives [facility] Work Phone: (20 sources) Codeine; Translations: [codeine] Drug Allergy 5 Unknown, Nausea Only [facility] Repository (20 sources) Penicillins; Translations: [penicillins] Propensity to adverse reactions to drug (disorder) 5 Unknown [facility] Repository (1 source) Penicillin Drug Allergy Unknown [facility] Medications Current Medications Medication Drug Class(es) Dates Sig (Normalized) Sig (Original) azithromycin 250 mg oral tablet (1 source) Macrolide Antimicrobial Start: 11-06-2021 End: 11-10-2021 Zithromax Z-Julio C 250 mg oral tablet ; 2 tab(s) by mouth at once on day 1, then 1 tablet once a day on days 2-5 Quantity: 6 Refills: 0 Ordered: 06-Nov-2021 Cosme Harding Start: 06-Nov-2021 End: 10-Nov-2021 Generic Substitution Allowed Comments: Do not take dairy products, antacids, or iron preparations within one hour of this medication.Finish all this medication unless otherwise directed by prescriber. Completed/Discontinued Medications Medication Drug Class(es) Dates Sig (Normalized) Sig (Original) busPIRone hydrochloride 30 mg oral tablet (20 sources) Start: 02-26-2021 take 1 tablet by mouth three times daily as needed for anxiety busPIRone HCl - 10 MG Oral Tablet TAKE ONE TABLET BY MOUTH 3 TIMES A DAY NEEDED FOR ANXIETY Quantity: 90 Refills: 3 Ordered: 28-Apr-2021 Cosme Joaquin DO Start : 26-Feb-2021 Active Problems Active Problems Problem Classification Problem Date Documented Da te Episodic/Chronic Acute bronchitis (2 sources) Acute bronchitis; Translations: [Acute bronchitis] 11-06-2021 Episodic Anxiety disorders (20 sources) Mixed anxiety and depressive disorder; Translations: [Anxiety state, unspecified] Onset: 08-14-2019 08-14-2019 Chronic Headache; including migraine (20 sources) Tension-type headache; Translations: [Tension headache] Onset: 04-04-2023 04-04-2023 Chronic Inflammation; infection of eye (except that caused by tuberculosis or sexually transmitteddisease) (1 source) Acute conjunctivitis; Translations: [Acute conjunctivitis, unspecified] 11-06-2021 Episodic Influenza (1 source) Influenza-like illness; Translations: [Influenza due to unidentified influenza virus with other respiratory manifestations] Episodic Malaise and fatigue (16 sources) Fatigue; Translations: [Other malaise and fatigue] Episodic Mood disorders (2 sources) Mood disorders; Translations: [Depression, unspecified] Onset: 04-04-2023 Nutritional deficiencies (12 sources) Vitamin D deficiency; Translations: [Unspecified vitamin D deficiency] Chronic Nutritional deficiencies (16 sources) Iron deficiency; Translations: [Iron deficiency anemia, unspecified] Episodic Other aftercare (5 sources) Drug indicated; Translations: [Long-term (current) use of other medications] Episodic Other lower respiratory disease (1 source) Cough; Translations: [Acute cough] Episodic Other nutritional; endocrine; and metabolic disorders (8 sources) Obesity; Translations: [Obesity, unspecified] Chronic Other nutritional; endocrine; and metabolic disorders (8 sources) Body mass index 30+ - obesity; Translations: [Body Mass Index 31.0-31.9, adult] Chronic Other nutritional; endocrine; and metabolic disorders (16 sources) H/O: thyroid disorder; Translations: [Personal history of other endocrine, metabolic, and immunity disorders] Episodic Other screening for suspected conditions (not mental disorders or infectious disease) (20 sources) Patient encounter status; Translations: [Screening for diabetes mellitus] Episodic Other upper respiratory disease (2 sources) Nasal congestion; Translations: [Other disease of nasal cavity and sinuses] 11-06-2021 Episodic Other upper respiratory infections (3 sources) Acute sinusitis; Translations: [Acute sinusitis, unspecified] 11-06-2021 Episodic Spondylosis; intervertebral disc disorders; other back problems (1 source) Neck pain; Translations: [Cervicalgia] Episodic Thyroid disorders (14 sources) Multinodular goiter; Translations: [Nontoxic multinodular goiter] Onset: 05-30-2009 10-27-2015 Chronic Thyroid disorders (20 sources) Disorder of thyroid gland; Translations: [Unspecified disorder of thyroid] Onset: 04-04-2023 04-04-2023 Episodic Unclassified (2 sources) COLD SYMPTOMS 11-06-2021 Past or Other Problems Problem Classification Problem Date Documented Da te Episodic/Chronic Administrative/social admission (3 sources) Persons encountering health services in other specified circumstances; Translations: [Persons encountering health services in other specified circumstances] Onset: 09-24-2019 Episodic Other and delivery including normal (3 sources) Normal ; Translations: [Encounter for supervision of other normal , unspecified trimester] Onset: 01-31-2006 01-31-2006 Episodic Other skin disorders (3 sources) Acne; Translations: [Other acne] Onset: 09-08-2009 09-08-2009 Episodic Other skin disorders (3 sources) Scar conditions and fibrosis of skin; Translations: [Scar conditions and fibrosis of skin] Onset: 09-08-2009 09-08-2009 Episodic Other skin disorders (3 sources) Asteatosis cutis; Translations: [Xerosis cutis] Onset: 08-01-2010 08-01-2010 Episodic Other skin disorders (3 sources) Cystic acne; Translations: [Acne vulgaris] Onset: 08-30-2012 08-30-2012 Episodic Other skin disorders (3 sources) Changes in skin texture; Translations: [Other skin changes] Onset: 08-30-2012 08-30-2012 Episodic Other skin disorders (3 sources) Scar; Translations: [Scar conditions and fibrosis of skin] Onset: 08-30-2012 08-30-2012 Episodic Other skin disorders (3 sources) Epidermoid cyst of skin; Translations: [Epidermal cyst] Onset: 08-30-2012 08-30-2012 Episodic Unclassified (1 source) Onset: 04-04-2023 04-04-2023 Viral infection (3 sources) Condyloma acuminatum of the anogenital region; Translations: [Anogenital (venereal) warts] Onset: 07-28-2006 07-28-2006 Episodic Results Test Name Value Interpretation Reference Range Facil ity Vital Signs Date Time Vital Sign Value Performing Clinician Facility 04-04-2023 11:21-0400 Body height 177.8 cm Cosme Oberhauser DO Work Phone: [facility] 04-04-2023 11:21-0400 Body mass index (BMI) [Ratio] 29.7 kg/m2 Cosme Oberhauser DO Work Phone: [facility] 04-04-2023 11:21-0400 Body weight 93.89 kg Cosme Oberhauser DO Work Phone: [facility] 04-04-2023 11:21-0400 Diastolic blood pressure 79 mm[Hg] Cosme Oberhauser DO Work Phone: [facility] 04-04-2023 11:21-0400 Heart rate 80 /min Cosme Oberhauser DO Work Phone: [facility] 04-04-2023 11:21-0400 Systolic blood pressure 127 mm[Hg] Cosme Oberhauser DO Work Phone: [facility] 09-27-2022 11:24-0500 Body height 177.8 cm Cosme L Oberhauser Work Phone: [facility] Work Phone: 09-27-2022 11:24-0500 Body mass index (BMI) [Ratio] 32 kg/m2 Cosme L Oberhauser Work Phone: [facility] Work Phone: 09-27-2022 11:24-0500 Body surface area Derived from formula 2.19 m2 Cosme Joaquin Work Phone: [facility] Work Phone: 09-27-2022 11:24-0500 Body weight 101.15 kg Cosme Joaquin Work Phone: [facility] Work Phone: 09-27-2022 11:24-0500 Diastolic blood pressure 73 mm[Hg] Cosme Joaquin Work Phone: [facility] Work Phone: 09-27-2022 11:24-0500 Heart rate 82 /min Cosme Joaquin Work Phone: [facility] Work Phone: 09-27-2022 11:24-0500 Systolic blood pressure 122 mm[Hg] Cosme Joaquin Work Phone: [facility] Work Phone: 08-02-2022 13:07-0500 Body temperature 97.7 [degF] Deshaun Ramirez MD Work Phone: [facility] 08-02-2022 13:07-0500 Body weight 98.43 kg Deshaun Ramirez MD Work Phone: [facility] 08-02-2022 13:07-0500 Diastolic blood pressure 78 mm[Hg] Deshaun Ramirez MD Work Phone: [facility] 08-02-2022 13:07-0500 Heart rate 84 /min Deshaun Ramirez MD Work Phone: [facility] 08-02-2022 13:07-0500 Respiratory rate 16 /min Deshaun Ramirez MD Work Phone: [facility] 08-02-2022 13:07-0500 SaO2% (BldA) [Mass fraction] 98 % Deshaun Ramirez MD Work Phone: [facility] 08-02-2022 13:07-0500 Systolic blood pressure 122 mm[Hg] Deshaun Ramirez MD Work Phone: [facility] 06-28-2022 11:42-0500 Body height 177.8 cm Cosme L Oberhauser Work Phone: [facility] Work Phone: 06-28-2022 11:42-0500 Body mass index (BMI) [Ratio] 31.71 kg/m2 Cosme L Oberhauser Work Phone: [facility] Work Phone: 06-28-2022 11:42-0500 Body surface area Derived from formula 2.18 m2 Cosme L Oberhauser Work Phone: [facility] Work Phone: 06-28-2022 11:42-0500 Body weight 100.25 kg Cosme L Oberhauser Work Phone: [facility] Work Phone: 06-28-2022 11:42-0500 Diastolic blood pressure 80 mm[Hg] Cosme L Oberhauser Work Phone: [facility] Work Phone: 06-28-2022 11:42-0500 Heart rate 78 /min Cosme L Oberhauser Work Phone: [facility] Work Phone: 06-28-2022 11:42-0500 Systolic blood pressure 123 mm[Hg] Cosme L Oberhauser Work Phone: [facility] Work Phone: 12-28-2021 11:42-0400 Body height 177.8 cm Cosme L Oberhauser Work Phone: [facility] Work Phone: 12-28-2021 11:42-0400 Body mass index (BMI) [Ratio] 31.71 kg/m2 Cosme L Oberhauser Work Phone: [facility] Work Phone: 12-28-2021 11:42-0400 Body surface area Derived from formula 2.18 m2 Cosme L Oberhauser Work Phone: [facility] Work Phone: 12-28-2021 11:42-0400 Body weight 100.25 kg Cosme L Oberhauser Work Phone: [facility] Work Phone: 12-28-2021 11:42-0400 Diastolic blood pressure 74 mm[Hg] Cosme L Oberhauser Work Phone: [facility] Work Phone: 12-28-2021 11:42-0400 Systolic blood pressure 117 mm[Hg] Cosme L Oberhauser Work Phone: [facility] Work Phone: 11-06-2021 13:40-0400 Body height 175.2 cm Cosme Oberhauser Other Phone: [facility] 11-06-2021 13:40-0400 Body temperature 98.06 [degF] Cosme Oberhauser Other Phone: [facility] 11-06-2021 13:40-0400 Diastolic blood pressure 90 mm[Hg] Cosme Oberhauser Other Phone: [facility] 11-06-2021 13:40-0400 Heart rate 80 /min Cosme Oberhauser Other Phone: [facility] 11-06-2021 13:40-0400 Respiratory rate 16 /min Cosme Oberhauser Other Phone: [facility] 11-06-2021 13:40-0400 SaO2% (BldA) [Mass fraction] 98 % Cosme Oberhauser Other Phone: [facility] 11-06-2021 13:40-0400 Systolic blood pressure 132 mm[Hg] Cosme Oberhauser Other Phone: [facility] 06-29-2021 11:04-0500 Body height 177.8 cm Cosme L Oberhauser Work Phone: [facility] Work Phone: 06-29-2021 11:04-0500 Body mass index (BMI) [Ratio] 33 kg/m2 Cosme L Oberhauser Work Phone: [facility] Work Phone: 06-29-2021 11:04-0500 Body surface area Derived from formula 2.22 m2 Cosme L Oberhauser Work Phone: [facility] Work Phone: 06-29-2021 11:04-0500 Body temperature 97.9 [degF] Cosme L Oberhauser Work Phone: [facility] Work Phone: 06-29-2021 11:04-0500 Body weight 104.33 kg Cosme L Oberhauser Work Phone: [facility] Work Phone: 06-29-2021 11:04-0500 Diastolic blood pressure 71 mm[Hg] Cosme L Oberhauser Work Phone: [facility] Work Phone: 06-29-2021 11:04-0500 Heart rate 83 /min Cosme L Oberhauser Work Phone: [facility] Work Phone: 06-29-2021 11:04-0500 Systolic blood pressure 114 mm[Hg] Cosme L Oberhauser Work Phone: [facility] Work Phone: 03-30-2021 11:00-0400 Body height 177.8 cm Cosme L Oberhauser Work Phone: [facility] Work Phone: 03-30-2021 11:00-0400 Body mass index (BMI) [Ratio] 33 kg/m2 Cosme L Oberhauser Work Phone: [facility] Work Phone: 03-30-2021 11:00-0400 Body surface area Derived from formula 2.22 m2 Cosme L Oberhauser Work Phone: [facility] Work Phone: 03-30-2021 11:00-0400 Body temperature 97.6 [degF] Cosme L Oberhauser Work Phone: [facility] Work Phone: 03-30-2021 11:00-0400 Body weight 104.33 kg Cosme L Oberhauser Work Phone: [facility] Work Phone: 03-30-2021 11:00-0400 Diastolic blood pressure 76 mm[Hg] Cosme L Oberhauser Work Phone: [facility] Work Phone: 03-30-2021 11:00-0400 Heart rate 73 /min Cosme L Oberhauser Work Phone: [facility] Work Phone: 03-30-2021 11:00-0400 Systolic blood pressure 117 mm[Hg] Cosme L Oberhauser Work Phone: [facility] Work Phone: 01-19-2021 11:25-0400 Body height 177.8 cm Cosme L Oberhauser Work Phone: [facility] Work Phone: 01-19-2021 11:25-0400 Body mass index (BMI) [Ratio] 34.29 kg/m2 Cosme L Oberhauser Work Phone: [facility] Work Phone: 01-19-2021 11:25-0400 Body surface area Derived from formula 2.25 m2 Cosme L Oberhauser Work Phone: [facility] Work Phone: 01-19-2021 11:25-0400 Body temperature 97.8 [degF] Cosme L Oberhauser Work Phone: [facility] Work Phone: 01-19-2021 11:25-0400 Body weight 108.41 kg Cosme L Oberhauser Work Phone: [facility] Work Phone: 01-19-2021 11:25-0400 Diastolic blood pressure 86 mm[Hg] Cosme L Oberhauser Work Phone: [facility] Work Phone: 01-19-2021 11:25-0400 Heart rate 104 /min Cosme L Oberhauser Work Phone: [facility] Work Phone: 01-19-2021 11:25-0400 Systolic blood pressure 127 mm[Hg] Cosme Hope Twan[place]anti Work Phone: [facility] Work Phone: Encounters Encounter Date Encounter Type Care Provider Facility Start: 04-04-2023 End: 04-04-2023 ambulatory COSME Hope [facility] Ambulatory Start: 04-04-2023 End: 04-04-2023 Office outpatient visit 15 minutes Cosme Jayy Emani DO Work Phone: [facility] Procedures Date Procedure Procedure Detail Performing Clinician Start: 03-11-2023 Thyrotropin [Units/v olume] in Serum or Plasma Cosme Joaquin DO Work Phone: Start: 08-02-2022 STREP A MOLECULAR (POC) Cate Jackson APRN.HOME HELP AIDE Work Phone: Plan of Treatment Date Care Activity Detail Author Start: 2033 Zoster Vaccines (1 of 2) Zoster Vaccines (1 of 2) [facility] Start: 03-11-2024 Thyroid stimulating hormone measurement TSH Level [facility] Start: 04-08-2023 Influenza vaccination Influenza Vaccine (#1) [facility] Start: 09-27-2022 FUV, Provider: Cosme Joaquin, Status: Pen, Time: 11:20 AM FUV, Provider: Cosme Joaquin, Status: Pen, Time: 11:20 AM [facility] Work Phone: Start: 06-28-2022 FUV, Provider: Cosme Joaquin, Status: Pen, Time: 11:40 AM FUV, Provider: Cosme Joaquin, Status: Pen, Time: 11:40 AM [facility] Work Phone: Start: 04-08-2022 Influenza vaccination [facility] Start: 12-28-2021 FUV, Provider: Cosme Joaquin, Status: Pen, Time: 11:40 AM FUV, Provider: Cosme Joaquin, Status: Pen, Time: 11:40 AM [facility] Work Phone: Start: 12-28-2021 Patient encounter procedure [facility] Medicine [facility] Start: 06-29-2021 FUV, Provider: Cosme Joaquin, Status: Pen, Time: 11:00 AM FUV, Provider: Cosme Joaquin, Status: Pen, Time: 11:00 AM [facility] Work Phone: Start: 04-25-2021 ANNUAL PCP TEAM CHRONIC DISEASE VISIT ANNUAL PCP TEAM CHRONIC DISEASE VISIT [facility] Start: 03-03-2021 DTaP/Tdap/Td Vaccines (7 - Td or Tdap) DTaP/Tdap/Td Vaccines (7 - Td or Tdap) [facility] Start: 03-02-2021 FUV, Provider: Cosme Joaquin, Status: Pen, Time: 11:40 AM FUV, Provider: Cosme Joaquin, Status: Pen, Time: 11:40 AM [facility] Work Phone: Start: 02-16-2021 COVID-19 VACCINE (3 - Booster for Moderna series) COVID-19 VACCINE (3 - Booster for Moderna series) [facility] Start: 11-14-2020 COVID-19 VACCINE (3 - Booster for Moderna series) COVID-19 VACCINE (3 - Booster for Moderna series) [facility] Start: 11-14-2020 COVID-19 Vaccine (3 - Moderna series) COVID-19 Vaccine (3 - Moderna series) [facility] Start: 07-22-2015 PAP TESTING PAP TESTING [facility] Start: 2013 HPV TESTING HPV TESTING [facility] Start: 06-19-2009 Varicella vaccination Varicella Vaccines (1 of 2 - 2-dose childhood series) [facility] Start: 2004 Screening for malignant neoplasm of cervix [facility] Start: 2002 Urine microalbumin profile DTAP,TDAP,TD (1 - Tdap) [facility] Start: 2001 HEPATITIS C SCREENING HEPATITIS C SCREENING [facility] Start: 2001 Hepatitis C screening Hepatitis C Screening [facility] Start: 1983 HEPATITIS B (1 of 3 - 3-dose series) HEPATITIS B (1 of 3 - 3-dose series) [facility] Start: 1983 HIV screening HIV Screening [facility] Start: 1983 Lipid panel Lipid Panel [facility] Start: 1983 Yearly Adult Physical Yearly Adult Physical [facility] End: 04-04-2024 TSH with reflex to Free T4 if abnormal TSH with reflex to Free T4 if abnormal Lab Routine Thyroid disease every 6 weeks for 6 Occurrences starting 04/04/2023 until 04/04/2024 [facility] Service Area Work Phone: Immunizations Immunization Date Immunization Notes Care Provider Bindu burciaga 09-19-2020 Moderna COVID-19 Vaccine 100 MCG/0.5ML Intramuscular Suspension Cosme L Oberhauser Work Phone: [facility] Work Phone: 08-19-2020 Moderna COVID-19 Vaccine 100 MCG/0.5ML Intramuscular Suspension Cosme L Oberhauser Work Phone: [facility] Work Phone: 06-03-2020 Influenza, injectabl e, Madin [place] Canine Kidney, preservative free, quadrivalent Cosme L Oberhauser Work Phone: [facility] Work Phone: 06-03-2020 influenza virus vaccine, unspecified formulation Cosme Oberhauser DO Work Phone: [facility] Work Phone: 10-03-2019 influenza, injectabl e, quadrivalent, preservative free Cosme L Oberhauser Work Phone: [facility] Work Phone: 11-17-2015 poliovirus vaccine, inactivated Cosme Joaquin Work Phone: [facility] Work Phone: 06-18-2014 influenza, seasonal, injectable Cosme Joaquin Work Phone: [facility] Work Phone: 09-15-2011 hepatitis A vaccine, pediatric/adolescent dosage, 2 dose schedule Cosme Joaquin Work Phone: [facility] Work Phone: 03-03-2011 hepatitis A vaccine, pediatric/adolescent dosage, 2 dose schedule Cosme Joaquin Work Phone: [facility] Work Phone: 03-03-2011 tetanus toxoid, redu art diphtheria toxoid, and acellular pertussis vaccine, adsorbed Cosme Joaquin Work Phone: [facility] Work Phone: 03-01-2011 typhoid vaccine, parenteral, other than acetone-killed, dried Cosme Joaquin Work Phone: [facility] Work Phone: 05-22-2009 novel [id number], preservative-free, injectable Cosme Joaquin Work Phone: [facility] Work Phone: 05-21-2009 influenza virus vaccine, whole virus Cosme Joaquin Work Phone: [facility] Work Phone: 08-08-2003 pneumococcal polysaccharide vaccine, 23 valent Ender Gamez PA-C Work Phone: [facility] Work Phone: 07-19-2002 pneumococcal polysaccharide vaccine, 23 valent Cosme Trenterdouger Work Phone: [facility] Work Phone: 09-05-1996 hepatitis B vaccine, pediatric or pediatric/adolescent dosage Cosme Hope Oberhauser Work Phone: [facility] Work Phone: 03-20-1996 hepatitis B vaccine, pediatric or pediatric/adolescent dosage Cosme Hope Oberhauser Work Phone: [facility] Work Phone: 02-14-1996 hepatitis B vaccine, pediatric or pediatric/adolescent dosage Cosme Hope Oberhauser Work Phone: [facility] Work Phone: 02-14-1996 measles, mumps and rubella virus vaccine Cosme Hope Oberhauser Work Phone: [facility] Work Phone: 12-14-1988 diphtheria, tetanus toxoids and acellular pertussis vaccine, unspecified formulation Cosme Hope Oberhauser Work Phone: [facility] Work Phone: 12-14-1988 trivalent poliovirus vaccine, live, oral Cosme Hope Oberhauser Work Phone: [facility] Work Phone: 02-20-1985 diphtheria, tetanus toxoids and acellular pertussis vaccine, unspecified formulation Cosme Hope Oberhauser Work Phone: [facility] Work Phone: 02-21-1984 diphtheria, tetanus toxoids and pertussis vaccine Cosme Hope Oberhauser Work Phone: [facility] Work Phone: 02-21-1984 trivalent poliovirus vaccine, live, oral Cosme L Oberhauser Work Phone: [facility] Work Phone: 1983 diphtheria, tetanus toxoids and pertussis vaccine Cosme L Oberhauser Work Phone: [facility] Work Phone: 1983 trivalent poliovirus vaccine, live, oral Cosme L Oberhauser Work Phone: [facility] Work Phone: 1983 measles, mumps and rubella virus vaccine Cosme L Oberhauser Work Phone: [facility] Work Phone: 1983 diphtheria, tetanus toxoids and pertussis vaccine Cosme L Oberhauser Work Phone: [facility] Work Phone: 1983 trivalent poliovirus vaccine, live, oral Cosme L Oberhauser Work Phone: [facility] Work Phone: Payers Date Payer Category Payer Unknown [employer] PPO [id number] 2020-Present [phone] [facility] [id number] [place] [address] PPO [id number] 2020 Unknown [id number] 2018 Unknown 1983 Unknown [id number] 1983 Unknown [id number] 1983 Unknown [id number] 1983 Unknown [id number] 1983 Unknown [id number] 1983 Unknown [id number] 1983 Unknown [id number] Unknown [id number] Social History Date Type Detail Facility Start: 04-04-2023 Social alcohol use Social alcohol use -[facility] Work Phone: Tobacco smoking consumption unknown [facility] Start: 12-14-2012 End: 08-02-2022 Tobacco smoking status NHIS Ex-smoker [facility] Work Phone: End: 01-07-2006 History of tobacco use Current smoker [facility] Work Phone: Start: 12-14-2012 End: 04-04-2023 Tobacco use and exposure Smokeless tobacco non-user [facility] Work Phone: Start: 04-25-2020 End: 04-04-2023 Alcohol intake Current drinker of alcohol (finding) [facility] Start: 04-23-2020 End: 04-25-2020 History SDOH Alcohol Frequency 2 [facility] Start: 04-23-2020 End: 04-25-2020 History SDOH Alcohol Std Drinks 1 [facility] Start: 09-16-2011 History SDOH Alcohol Comment occasionally wine [facility] Start: 04-23-2020 End: 04-25-2020 History SDOH Social Connections Phone 5 [facility] Start: 04-23-2020 History SDOH Social Connections Meetings 3 [facility] Start: 04-23-2020 History SDOH Physical Activity MPS 4 [facility] Start: 04-23-2020 Education 16 [facility] Start: 1985 Sex Assigned At Female [facility] Start: 04-06-2021 End: 05-06-2021 Exposure to SARS-CoV-2 (event) Not sure [facility] End: 01-07-2006 History of tobacco use Cigarette Smoker [facility] Work Phone: Start: 08-02-2022 Tobacco Comment 5 cigarettes per day [facility] Start: 04-04-2023 Tobacco smoking status NHIS Never smoked tobacco [facility] Work Phone: Start: 04-04-2023 Tobacco use panel [facility] Work Phone: Start: 04-04-2023 Gender identity Identifies as female gender (finding) [facility] Work Phone: Start: 04-04-2023 Sexual orientation Heterosexual (finding) [facility] Work Phone: Clinical Notes 05-16-2007 to 04-04-2023 Cosme Joaquin DO - 04/04/2023 11:20 AM Trae Ramirez MD - 08/02/2022 1:18 PM ESTTelephone Encounter - Niraj Barnes Ma - 01/25/2022 10:06 AM Radha Gamez PA-C - 11/16/2020 10:53 PM EDT Note Date & Type Note Facility 04-04-2023 History of Present illness Narrative Formatting of this note is different fro m the original. Subjective Patient ID: Sherita Yu is a 37 y.o. female who presents for Follow-up (6 month). HPI Patient is here today for 6 mo follow up Patient reports that she is doing well. Her tsh was 7, increased dose of synthroid to 150mcg po daily She has started a new nutritional plan, was 223, now 207. Review of Systems Constitutional: Negative for activity change, appetite change, chills and fatigue. HENT: Negative for congestion, postnasal drip, sinus pressure, sinus pain and sore throat. Respiratory: Negative for cough, shortness of breath and wheezing. Cardiovascular: Negative for chest pain and leg swelling. Gastrointestinal: Negative for abdominal distention, diarrhea, nausea and vomiting. Musculoskeletal: Negative for back pain. Neurological: Negative for weakness and numbness. Objective BP 127/79 (BP Location: Left arm, Patient Position: Sitting, BP Cuff Size: Adult) Pulse 80 Ht 1.778 m (5' 10 ) Wt 93.9 kg (207 lb) BMI 29.70 kg/m Physical Exam Constitutional: General: She is not in acute distress. Appearance: Normal appearance. HENT: Head: Normocephalic. Nose: Nose normal. Eyes: General: Right eye: No discharge. Left eye: No discharge. Extraocular Movements: Extraocular movements intact. Pupils: Pupils are equal, round, and reactive to light. Cardiovascular: Rate and Rhythm: Normal rate and regular rhythm. Heart sounds: No murmur heard. No gallop. Pulmonary: Effort: Pulmonary effort is normal. No respiratory distress. Breath sounds: Normal breath sounds. No wheezing. Musculoskeletal: General: No swelling. Normal range of motion. Skin: General: Skin is warm and dry. Coloration: Skin is not jaundiced. Neurological: General: No focal deficit present. Mental Status: She is alert and oriented to person, place, and time. Cranial Nerves: No cranial nerve deficit. Psychiatric: Mood and Affect: Mood normal. Behavior: Behavior normal. Assessment/Plan Problem List Items Addressed This Visit Anxiety and depression Thyroid disease - Primary Relevant Orders TSH with reflex to Free T4 if abnormal Migraines 1. Anxiety and depression, stable - continue Effexor to 225mg po daily - continue Wellbutrin in the AM - continue BuSpar 30mg po bid 2. Hypothyroidism, hx of thyroid nodules - repeat tsh 7 - increase to 150mcg po daily 3. Migraines - continue Imitrex prn Final diagnoses: [E07.9] Thyroid disease [F41.9, F32.A] Anxiety and depression [G43.709] Chronic migraine without aura without status migrainosus, not intractable documented in this encounter [facility] Work Phone: 08-02-2022 Note HNO ID: [id number] Author: Deshaun Ramirez MD Service: ? Author Type: Physician Type: Progress Notes Filed: 08/02/2022 1:39 PM Note Text: Patient presents with: Sore Throat: cough, low grade fever, nasal congestion x 1 week HPI: Feeling sick for 8 days. Her daughter has similar symptoms. Positive symptoms: Cough, Sore throat, Rhinorrhea, Fever, Nausea, poor appetite, Negative symptoms: chest and back aches, headaches, Shortness of breath, Vomiting, Diarrhea, OTC: Mucinex, Sudafed, Lozenges, Tylenol PAST MEDICAL HISTORY Diagnosis Date Anxiety and depression Migraine Other acne Unspecified hypothyroidism MEDICATIONS: Current Outpatient Medications Medication Sig busPIRone HCl 30 mg tablet venlafaxine XR (EFFEXOR XR) 225 mg tablet cholecalciferol, Vitamin D3, (VITAMIN D3) 1,250 mcg (50,000 unit) cap capsule Take 1 capsule by mouth one time a week. buPROPion XL (WELLBUTRIN XL) 300 mg 24 hr tablet TAKE ONE TABLET BY MOUTH EVERY DAY multivitamin tablet Take 1 tablet by mouth once daily. Levothyroxine 137 mcg cap Take 137 mcg by mouth once daily. No current facility-administered medications for this visit. ALLERGIES: ALLERGIES Allergen Reactions Codeine Penicillins VITALS: BP 122/78 Pulse 84 Temp 36.5 ?C (97.7 ?F) Resp 16 Wt 98.4 kg (217 lb) LMP 08/30/2011 SpO2 98% BMI 32.05 kg/m? PHYSICAL EXAM: GEN: mildly ill appearing HEENT: PERRL, EOMI, conjunctiva clear Ears: canals clear. TMs without erythema, bulge, or effusion Sinuses: non-tender frontal sinus, non-tender maxillary sinuses Throat: moist mucous membranes, mild erythema, no exudate Neck: supple, no thyromegaly, no lymphadenopathy HEART: regular rate and rhythm, no murmurs LUNGS: faint fine crackles left lower lung field; otherwise clear to auscultation, no increased WOB; frequently raspy cough ASSESSMENT/PLAN: 1. Sore throat - ICD9: 462, ICD10: J02.9 (primary diagnosis) - STREP A MOLECULAR (POC) - negative 2. Influenza-like illness - ICD9: 487.1, ICD10: J11.1 3. Acute cough - ICD9: 786.2, ICD10: R05.1 - suspect viral URI such as influenza or COVID-19. - Discussed supportive care treatment with home isolation, rest, cold medicine, and analgesia. - Red flags to seek further treatment include chest pain, shortness of breath, and lethargy; in the ER if severe. CXR is indicated if failing to improve. Informed wellbutrin and effexor are similar medicines-discuss with prescriber. Deshaun Ramirez MD [facility] 08-02-2022 History of Present illness Narrative Formatting of this note is different fro m the original. Patient presents with: Sore Throat: cough, low grade fever, nasal congestion x 1 week HPI: Feeling sick for 8 days. Her daughter has similar symptoms. Positive symptoms: Cough, Sore throat, Rhinorrhea, Fever, Nausea, poor appetite, Negative symptoms: chest and back aches, headaches, Shortness of breath, Vomiting, Diarrhea, OTC: Mucinex, Sudafed, Lozenges, Tylenol PAST MEDICAL HISTORY Diagnosis Date Anxiety and depression Migraine Other acne Unspecified hypothyroidism MEDICATIONS: Current Outpatient Medications Medication Sig busPIRone HCl 30 mg tablet venlafaxine XR (EFFEXOR XR) 225 mg tablet cholecalciferol, Vitamin D3, (VITAMIN D3) 1,250 mcg (50,000 unit) cap capsule Take 1 capsule by mouth one time a week. buPROPion XL (WELLBUTRIN XL) 300 mg 24 hr tablet TAKE ONE TABLET BY MOUTH EVERY DAY multivitamin tablet Take 1 tablet by mouth once daily. Levothyroxine 137 mcg cap Take 137 mcg by mouth once daily. No current facility-administered medications for this visit. ALLERGIES: ALLERGIES Allergen Reactions Codeine Penicillins VITALS: BP 122/78 Pulse 84 Temp 36.5 C (97.7 F) Resp 16 Wt 98.4 kg (217 lb) LMP 08/30/2011 SpO2 98% BMI 32.05 kg/m PHYSICAL EXAM: GEN: mildly ill appearing HEENT: PERRL, EOMI, conjunctiva clear Ears: canals clear. TMs without erythema, bulge, or effusion Sinuses: non-tender frontal sinus, non-tender maxillary sinuses Throat: moist mucous membranes, mild erythema, no exudate Neck: supple, no thyromegaly, no lymphadenopathy HEART: regular rate and rhythm, no murmurs LUNGS: faint fine crackles left lower lung field; otherwise clear to auscultation, no increased WOB; frequently raspy cough ASSESSMENT/PLAN: 1. Sore throat - ICD9: 462, ICD10: J02.9 (primary diagnosis) - STREP A MOLECULAR (POC) - negative 2. Influenza-like illness - ICD9: 487.1, ICD10: J11.1 3. Acute cough - ICD9: 786.2, ICD10: R05.1 - suspect viral URI such as influenza or COVID-19. - Discussed supportive care treatment with home isolation, rest, cold medicine, and analgesia. - Red flags to seek further treatment include chest pain, shortness of breath, and lethargy; in the ER if severe. CXR is indicated if failing to improve. Informed wellbutrin and effexor are similar medicines-discuss with prescriber. Deshaun Ramirez MD documented in this encounter [facility] 01-25-2022 Miscellaneous Notes Being prescribed by Cosme Joaquin Patient's request for medication is as follows: Pending Prescriptions Disp Refills BUPROPION XL 300 MG 24 HR TAB 90 tablet 0 Sig: TAKE ONE TABLET BY MOUTH EVERY DAY URBANO: Yes Please approve the above prescription(s) to electronically send to pharmacy. Niraj Barnes Ma documented in this encounter [facility] 11-16-2020 History of Present illness Narrative DATE OF SERVICE: 11/16/2020 HISTORY OF PRESENT ILLNESS: A 35-year-old female with a rash on her left side along with some congestion, drainage, sore throat, a little bit of wheezing. Says this has been going on for the past day. They have been doing a lot of work outside, has had problems with allergies in the past. She says she has a lot of problems with poison chandu. ALLERGIES, MEDICATIONS, MEDICAL AND SURGICAL HISTORY: Per nursing assessment sheet. PHYSICAL EXAMINATION: Vitals are stable. On exam, pupils are nonreactive. Ears are clear. Oropharynx clear. A little bit of erythema, no exudates or adenopathy. Lungs a few scattered dry wheezes. No acute respiratory distress. Heart sounds without prominent rub, murmur or bruit. She does have an erythematous on her left side more towards her left flank area, macular, erythematous, raised, does not appear to be urticarial. It appears to be more contact in etiology. No other rashes or lesions. Otherwise healthy-appearing. IMPRESSION: 1. Contact dermatitis. 2. Reactive airway. PLAN: I put her on prednisone, albuterol and discharged. GABRIELE Cat/[id number] SSI File#: [id number] END OF DOCUMENT / CHANGE LOG FOLLOWS Last Edited By Liban. Signed By Ender Gamez Leonard F #[email or web address] on 12/10/2020 14:05 ET on 12/10/2020 14:05 ET Revision Number - 2 ^^^ Verified/Reviewed by 12/10/20 1405 [facility] PATIENT NAME: SHERITA YU [facility] [address] [address] MEDICAL REC #: [id number] [place] [address] [facility] REPORT STATCARE PHYSICIAN documented in this encounter [facility] documented as of this encounter (statuses as of 01/12/2022) [facility] History of Past illness Narrative* Problem Noted Date Resolved Date Other acne 05/16/2007 09/08/2009 documented as of this encounter (statuses as of 01/25/2022) [facility] History of Past illness Narrative* Problem Noted Date Resolved Date Other acne 05/16/2007 09/08/2009 documented as of this encounter (statuses as of 08/07/2022) [facility] Diagnosis Sore throat- Primary Acute pharyngitis Influenza-like illness Influenza with other respiratory manifestations Acute cough [facility] Diagnosis Thyroid disease- Primary Unspecified disorder of thyroid Anxiety and depression Chronic migraine without aura without status migrainosus, not intractable documented in this encounter [facility] Work Phone: History of Present illness Narrative* Patient is here today for 6 week follow up * Patient reports that she has weaned herself off the Cymbalta * She feels more agitated and snapping more easily, working out helps. Has no motivation, wants to just stay in bed. * She is still taking the bupropion er 300 po daily and the effexor at night. * Buspar tid as needed [facility] Work Phone: History of Present illness Narrative* Patient is here today for 6 mo follow up * Patient rpeorts that overall her anxiety is well controlled on the Effexor and Wellbutrin. * She is due for us of her thyroid and blood work. * She feels like she has been having a raspy voice that comes and goes which is new. * Feels like the right episode of her throat, points to thyroid area sometimes is sore. * She did have one in 11/2020 from [place] but that result was not scanned into AE. [facility] Work Phone: History of Present illness Narrative* Patient is here today for 6 mo follow up * Patient reports that she has been feeling a lot more anxiety over the last 3 mo. * There is nothing that is going on that is seeming to trigger it. * Feels like she is just getting used to her medication. * ALso due for thyroid labs. [facility] Work Phone: History of Present illness Narrative* Patient is here today for 3 mo follow up * Patient reports that she has had a fw episodes of anxiety but nothing like it was. * Overall she feels well on this current dosage and feels content. [facility] Work Phone: Reason for referral (narrative)* Consultation (Routine) - Authorized Specialty Diagnoses / Procedures Referred By Jaun peck Referred To Contact Primary Care Procedures Follow Up In Primary Care - Established Cosme Joaquin DO [address] [facility] [place] [address] Referral ID Status Reason Start Date Expiration Date V isits Requested Visits Authorized [id number] Authorized 04/04/2023 10/01/2023 1 1 [facility] Work Phone: Summary Purpose Family History No Family History Records FoundUnknown Family Member Name Dates Details Chronic mental illness: Othe r Status:Active Family history of hyperlipid emia: Other(V18.19, Z83.438) Status:Active Family history of fibromyalg ia: Other(V17.89, Z82.69) Status:Active Family history of diabetes m ellitus: Other(V18.0, Z83.3) Status:Active Unknown Family Member Name Dates Details Chronic mental illness: Othe r Status:Active Family history of hyperlipid emia: Other(V18.19, Z83.438) Status:Active Family history of fibromyalg ia: Other(V17.89, Z82.69) Status:Active Family history of diabetes m ellitus: Other(V18.0, Z83.3) Status:Active Unknown Family Member Name Dates Details Chronic mental illness: Othe r Status:Active Family history of hyperlipid emia: Other(V18.19, Z83.438) Status:Active Family history of fibromyalg ia: Other(V17.89, Z82.69) Status:Active Family history of diabetes m ellitus: Other(V18.0, Z83.3) Status:Active Unknown Family Member Name Dates Details Chronic mental illness: Othe r Status:Active Family history of hyperlipid emia: Other(V18.19, Z83.438) Status:Active Family history of fibromyalg ia: Other(V17.89, Z82.69) Status:Active Family history of diabetes m ellitus: Other(V18.0, Z83.3) Status:Active Unknown Family Member Name Dates Details Chronic mental illness: Othe r Status:Active Family history of hyperlipid emia: Other(V18.19, Z83.438) Status:Active Family history of fibromyalg ia: Other(V17.89, Z82.69) Status:Active Family history of diabetes m ellitus: Other(V18.0, Z83.3) Status:Active Unknown Family Member Name Dates Details Chronic mental illness: Othe r Status:Active Family history of hyperlipid emia: Other(V18.19, Z83.438) Status:Active Family history of fibromyalg ia: Other(V17.89, Z82.69) Status:Active Family history of diabetes m ellitus: Other(V18.0, Z83.3) Status:Active Unknown Family Member Name Dates Details Chronic mental illness: Othe r Status:Active Family history of hyperlipid emia: Other(V18.19, Z83.438) Status:Active Family history of fibromyalg ia: Other(V17.89, Z82.69) Status:Active Family history of diabetes m ellitus: Other(V18.0, Z83.3) Status:Active Unknown Family Member Name Dates Details Chronic mental illness: Othe r Status:Active Family history of hyperlipid emia: Other(V18.19, Z83.438) Status:Active Family history of fibromyalg ia: Other(V17.89, Z82.69) Status:Active Family history of diabetes m ellitus: Other(V18.0, Z83.3) Status:Active Unknown Family Member Name Dates Details Chronic mental illness: Othe r Status:Active Family history of hyperlipid emia: Other(V18.19, Z83.438) Status:Active Family history of fibromyalg ia: Other(V17.89, Z82.69) Status:Active Family history of diabetes m ellitus: Other(V18.0, Z83.3) Status:Active Unknown Family Member Name Dates Details Chronic mental illness: Othe r Status:Active Family history of hyperlipid emia: Other(V18.19, Z83.438) Status:Active Family history of fibromyalg ia: Other(V17.89, Z82.69) Status:Active Family history of diabetes m ellitus: Other(V18.0, Z83.3) Status:Active Unknown Family Member Name Dates Details Chronic mental illness: Othe r Status:Active Family history of hyperlipid emia: Other(V18.19, Z83.438) Status:Active Family history of fibromyalg ia: Other(V17.89, Z82.69) Status:Active Family history of diabetes m ellitus: Other(V18.0, Z83.3) Status:Active Unknown Family Member Name Dates Details Chronic mental illness: Othe r Status:Active Family history of hyperlipid emia: Other(V18.19, Z83.438) Status:Active Family history of fibromyalg ia: Other(V17.89, Z82.69) Status:Active Family history of diabetes m ellitus: Other(V18.0, Z83.3) Status:Active Unknown Family Member Name Dates Details Chronic mental illness: Othe r Status:Active Family history of hyperlipid emia: Other(V18.19, Z83.438) Status:Active Family history of fibromyalg ia: Other(V17.89, Z82.69) Status:Active Family history of diabetes m ellitus: Other(V18.0, Z83.3) Status:Active Advance Directives No Advanced Directives Records FoundNo Advanced Directives Records FoundNo Advanced Directives Records FoundNo Advanced Directives Records FoundNo Advanced Directives Records FoundNo Advanced Directives Records FoundNo Advanced Directives Records FoundNo Advanced Directives Records FoundNo Advanced Directives Records Found Chief Complaint * 35 y/o female presents for 6 week f/u * Pt feels like since weaning off the Duloxetine she has felt worse * She reports 5 years ago in the summer her brother committed suicide * Pt reports she found out her father has cancer * She has been more agitated and yelling at her more * She states her made her cry and it was over something stupid that she normally wouldn't be upset over * She states its beautiful out and she doesn't want to be outside * Pt reports she is taking bupropion 300 QD; buspar 10 TID; and Venlafaxine 75 QD * She is asking about increasing her Venlafaxine or she states there was another medication that was discussed at her [facility] * Pt reports she is still exercising because it does help her out a lot * 36 y/o female presents for 6 month f/u * She would like to get lab work done for thyroid * She would like her yearly thyroid US scheduled * She states she feels like her voice has been raspy and her throat has been sore on only 1 side * 36 y/o female presents for 6 month f/u * Pt would like to talk about increasing her BuSpar to 30 MG * She is asking for thyroid labs to be placed * 37 y/o female presents for 3 month f/u * Denies needing medication RF's * Denies new complaints * Pt happy with med therapy Additional Source Comments INFORMATION SOURCE (unrecogn ized section and content) DATE CREATED AUTHOR AUTHOR'S ORGANIZ ATION 03/01/2020 [facility] DATE CREATED AUTHOR AUTHOR'S ORGANIZ ATION 03/02/2020 [facility] DATE CREATED AUTHOR AUTHOR'S ORGANIZ ATION 09/27/2021 [facility] DATE CREATED AUTHOR AUTHOR'S ORGANIZ ATION 11/10/2021 [facility] DATE CREATED AUTHOR AUTHOR'S ORGANIZ ATION 08/02/2022 [facility] DATE CREATED AUTHOR AUTHOR'S ORGANIZ ATION 09/27/2022 [facility] DATE CREATED AUTHOR AUTHOR'S ORGANIZ ATION 09/28/2022 [facility] DATE CREATED AUTHOR AUTHOR'S ORGANIZ ATION 04/22/2023 [facility] <item> Privacy Markings (unrecogniz ed section and content) Section Author: Estefany Gonzales PROHIBITION ON REDISCLOSURE OF CONFIDENTIAL INFORMATION This notice accompanies a disclosure of information concerning a client made to you with the consent of such client. Source Comments (unrecognize d section and content) In the event this informatio n is protected by the Federal Confidentiality of Alcohol and Drug Abuse Patient Records regulations: The Federal rules restrict any use of the information to criminally investigate or prosecute any alcohol or drug abuse patient.[facility] the event this information is protected by the Federal Confidentiality of Alcohol and Drug Abuse Patient Records regulations: The Federal rules restrict any use of the information to criminally investigate or prosecute any alcohol or drug abuse patient.[facility] the event this information is protected by the Federal Confidentiality of Alcohol and Drug Abuse Patient Records regulations: The Federal rules restrict any use of the information to criminally investigate or prosecute any alcohol or drug abuse patient.[facility] Care Teams (unrecognized sec tion and content) 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 Start Date End Date Cosme Joaquin [address] [place] [address] PCP - General Internal Medicine 09/28/21 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 Start Date End Date Cosme Joaquin [address] [place] [address] PCP - General Internal Medicine 09/28/21 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 Start Date End Date Cosme Joaquin, DO [address] [facility] [place] [address] PCP - General 08/25/20 Cosme Joaquin, DO [address] [place] [address] PCP - Mckay BRYANTO PCP 08/08/21 Reason for Visit (unrecogniz ed section and content) Reason Comments Sore Throat cough, low grade fev er, nasal congestion x 1 week Reason Comments Follow-up 6 month FOR RECORDS PERTAINING TO PATIENTS WHO ARE OR HAVE BEEN ENROLLED IN A CHEMICAL DEPENDENCY/SUBSTANCEABUSE PROGRAM, SOME INFORMATION MAY BE OMITTED. This clinical summary was aggregated from multiple sources. Caution should be exercised in using it in the provision of clinical care. This summary normalizes information from multiple sources, and as a consequence, information in this document may materially change the coding, format and clinical context of patient data. In addition, data may be omitted in some cases. CLINICAL DECISIONS SHOULD BE BASED ON THE PRIMARY CLINICAL RECORDS. [employer] provides no warranty or guarantee of the accuracy or completeness of information in this document.
[2023-09-05 12:03] LABS: Absolute Lymphocyte Count 1.57 X10^3/uL (0.83-4.51); Absolute Neutrophil Count 4.5 X10^3/uL (2.0-7.7); Basophil# 0.05 X10^3/uL; Basophil% 0.8 % (0-1); Eosinophil# 0.09 X10^3/uL; Eosinophils% 1.4 % (0-5); Hematocrit 39.3 % (37-47); Hemoglobin 12.4 g/dL (12.0-15.0); Lymphocyte # 1.57 X10^3/ul (0.83-4.51); Lymphocyte % 23.8 % (19-41); Mean Corp Hgb Conc 31.6 g/dL (32-36); Mean Corpuscular Hgb 28.1 pg (27.0-32.0); Mean Corpuscular Volume 88.9 fL (81-99); Mean Platelet Vol. 9.7 fl (6.2-12.0); Monocyte# 0.37 X10^3/uL; Monocyte% 5.6 % (0-10); NRBC Flagged by Analyzer 0 % (0-5); Neutrophil # 4.49 X10^3/uL (2.7-7.7); Neutrophil % 68.1 % (47-70); Platelet Count 232 K/mm3 (150-450); RBC Distribution Width CV 12.3 % (11.6-14.6); RBC Distribution Width SD 40.1 fl (35.1-43.9); Red Blood Count 4.42 M/mm3 (4.2-5.4); White Blood Count 6.6 K/mm3 (4.4-11.0)
[2023-09-05 13:12] LABS: AST(SGOT) 15 U/L (15-37); Alanine Aminotransfer ALT/SGPT 23 U/L (13-56); Albumin, Serum 3.9 g/dL (3.2-5.0); Alkaline Phosphatase 92 U/L (45-117); Anion Gap 4 (5-15); BUN 22 mg/dL (7-18); BUN/Creat Ratio 22.9 RATIO (10-20); Calcium,Total 8.8 mg/dL (8.5-10.1); Chloride 109 mmol/L (98-107); Cholesterol 186 mg/dL (200); Creatinine, Serum 0.96 mg/dL (0.55-1.02); EST Glomerular Filtration Rate 68 mL/min (>60); Est Glom Filt Rate - Afr Amer 83 mL/min (>60); Follicle Stimulating Hormone 6.9 mIU/mL; Globulin 3.8 g/dL (2.2-4.2); Glucose 84 mg/dL (74-106); High Density Lipoprotein 49 mg/dL; Luteinizing Hormone 6.2 mIU/mL; Potassium 4.1 mmol/L (3.5-5.1); Protein, Total 7.7 g/dL (6.4-8.2); Sodium Level 139 mmol/L (136-145); T4 Free Direct 0.97 ng/dL (0.76-1.46); Thyroid Stim Hormone (TSH) 4.65 uIU/mL (0.358-3.74); Triglycerides 103 mg/dL; Very Low Density Lipoprotein 21 mg/dL (5-40)
[2023-09-05 14:41] LABS: Hemoglobin A1c 5.2 % (3.8-5.6)
[2023-09-12 09:07] LABS: Adrenocorticotropic Hormone 29.5 pg/mL (7.2-63.3); DHEA Sulfate 70.1 ug/dL (57.3-279.2); Testosterone, Free < 0.04 ng/dL (0.10-0.85); Testosterone, Total < 3 ng/dL (8-60)
== END | disposition home or self-care (01) ==
LOC: LAB 11:08
PROVIDERS: PCP Internal Medicine; Referring Provider Internal Medicine Endocrinology, Diabetes & Metabolism; Visit Provider Internal Medicine Endocrinology, Diabetes & Metabolism
DX: Z00.00 Encounter for general adult medical examination without abnormal findings (principal); Z13.220 Encounter for screening for lipoid disorders; R53.82 Chronic fatigue, unspecified
CPT/HCPCS: 36415; 80053; 80061; 82024; 82533; 82627; 83001; 83002; 83036; 84402; 84403; 84439; 84443; 85025; 82626

== ENCOUNTER → 2023-10-13 | Outpatient (CLI) | payer BC, SELFPAY ==
--- NOTE | 2023-10-13 11:59 | BI_ITS ---
MAMMOGRAPHY - BILATERAL SCREENING 3-D TOMOSYNTHESIS REASON FOR EXAM: Female, 38 years old. SCREENING PERTINENT HISTORY: No significant family history. TECHNIQUE: 2-D mammograms and 3-D Tomosynthesis of the breast (s) were performed. CAD was performed. COMPARISON: 08/16/2022 FINDINGS: The breast composition is composed of scattered fibroglandular density. Scattered benign calcifications are seen. No dense spiculated masses or suspicious microcalcifications are identified. No architectural distortion is identified. There is no skin thickening or retraction. There has been no significant change since the prior study. BI/SCRN MAMM (CAD)W/ANN MARIE BILAT IMPRESSION: No mammographic signs of malignancy. Routine yearly mammograms recommended. ASSESSMENT CATEGORY: BIRADS Category 1: Negative. A letter regarding these results will be sent to the patient by the facility within 30 days. FOLLOW UP RECOMMENDATION: Yearly follow up mammogram recommended. (A) Approximately 10% of breast cancers are not detected by mammography. A normal mammogram should not delay biopsy of a clinically suspicious abnormality. Electronically Signed: Isaias Mendoza MD at 15:39 EST ,
== END | disposition home or self-care (01) ==
LOC: OPBI 11:58
PROVIDERS: PCP Internal Medicine; Visit Provider Internal Medicine
DX: Z12.31 Encounter for screening mammogram for malignant neoplasm of breast (principal)
CPT/HCPCS: 77063; 77067

== ENCOUNTER → 2023-11-22 | Outpatient (CLI) | payer BC, SELFPAY ==
[2023-11-22 13:07] LABS: T4 Free Direct 1.12 ng/dL (0.76-1.46); Thyroid Stim Hormone (TSH) 0.91 uIU/mL (0.358-3.74)
== END | disposition home or self-care (01) ==
LOC: LAB 11:34
PROVIDERS: PCP Internal Medicine; Referring Provider Internal Medicine Endocrinology, Diabetes & Metabolism; Visit Provider Internal Medicine Endocrinology, Diabetes & Metabolism
DX: E03.8 Other specified hypothyroidism (principal); E06.3 Autoimmune thyroiditis
CPT/HCPCS: 36415; 84439; 84443

== ENCOUNTER → 2024-04-05 | Outpatient (CLI) | payer BC, SELFPAY ==
[2024-04-05 11:39] LABS: Absolute Lymphocyte Count 2.11 X10^3/uL (0.83-4.51); Absolute Neutrophil Count 4.9 X10^3/uL (2.0-7.7); Basophil# 0.04 X10^3/uL; Basophil% 0.5 % (0-1); Eosinophil# 0.05 X10^3/uL; Eosinophils% 0.7 % (0-5); Hematocrit 41.2 % (37-47); Hemoglobin 13.6 g/dL (12.0-15.0); Lymphocyte # 2.11 X10^3/ul (0.83-4.51); Lymphocyte % 27.7 % (19-41); Mean Corpuscular Hgb 28.9 pg (27.0-32.0); Mean Corpuscular Volume 87.5 fL (81-99); Mean Platelet Vol. 9.7 fl (6.2-12.0); Monocyte# 0.56 X10^3/uL; Monocyte% 7.3 % (0-10); NRBC Flagged by Analyzer 0 % (0-5); Neutrophil # 4.85 X10^3/uL (2.7-7.7); Neutrophil % 63.5 % (47-70); Platelet Count 220 K/mm3 (150-450); RBC Distribution Width CV 13.6 % (11.6-14.6); RBC Distribution Width SD 44.1 fl (35.1-43.9); Red Blood Count 4.71 M/mm3 (4.2-5.4); White Blood Count 7.6 K/mm3 (4.4-11.0)
[2024-04-05 12:23] LABS: ALB/GLOB Ratio 1.2 RATIO (0.9-2.4); AST(SGOT) 16 U/L (15-37); Alanine Aminotransfer ALT/SGPT 21 U/L (13-56); Albumin, Serum 3.9 g/dL (3.2-5.0); Alkaline Phosphatase 74 U/L (45-117); Anion Gap 5 (5-15); BUN 21 mg/dL (7-18); BUN/Creat Ratio 22.9 RATIO (10-20); Calcium,Total 8.8 mg/dL (8.5-10.1); Chloride 105 mmol/L (98-107); Creatinine, Serum 0.92 mg/dL (0.55-1.02); EST Glomerular Filtration Rate 72 mL/min (>60); Est Glom Filt Rate - Afr Amer 87 mL/min (>60); Follicle Stimulating Hormone 1.3 mIU/mL; Globulin 3.3 g/dL (2.2-4.2); Glucose 95 mg/dL (74-106); Luteinizing Hormone 4.1 mIU/mL; Potassium 4.6 mmol/L (3.5-5.1); Protein, Total 7.2 g/dL (6.4-8.2); Sodium Level 137 mmol/L (136-145)
[2024-04-06 14:10] LABS: DHEA Sulfate 61.6 ug/dL (57.3-279.2)
== END | disposition home or self-care (01) ==
LOC: LAB 11:14
PROVIDERS: PCP Internal Medicine; Referring Provider Internal Medicine; Visit Provider Internal Medicine
DX: Z00.00 Encounter for general adult medical examination without abnormal findings (principal); R53.82 Chronic fatigue, unspecified; E07.9 Disorder of thyroid, unspecified
CPT/HCPCS: 36415; 80053; 82024; 82533; 82627; 83001; 83002; 84443; 85025; 82626

== ENCOUNTER → 2024-10-15 | Outpatient (CLI) | payer BC, SELFPAY ==
--- NOTE | 2024-10-15 12:15 | BI_ITS ---
PROCEDURE: SCRN MAMM (CAD)W/ANN MARIE BILAT REASON FOR EXAM: F, Age 39 y/o, presents for annual screening mammogram. Family history of breast cancer in maternal grandmother in her late 50s. TECHNIQUE: Bilateral screening digital breast tomosynthesis with 2D and 3D images. Computer aided detection. COMPARISON: 10/13/2023, 08/16/2022 FINDINGS: There are scattered areas of fibroglandular density. No suspicious masses, areas of developing architectural distortion, or suspicious calcifications. BI/SCRN MAMM (CAD)W/ANN MARIE BILAT IMPRESSION: There is no mammographic evidence of malignancy. BI-RADS 1: NEGATIVE. RECOMMEND ANNUAL MAMMOGRAPHIC SCREENING. Follow-up code: Routine Follow-up. The patient will be notified of the results by letter. Reading Location: [id number]
== END | disposition home or self-care (01) ==
LOC: OPBI 11:58
PROVIDERS: PCP Internal Medicine; Referring Provider Nurse Practitioner Family; Visit Provider Nurse Practitioner Family
DX: Z12.31 Encounter for screening mammogram for malignant neoplasm of breast (principal)
CPT/HCPCS: 77063; 77067

== ENCOUNTER → 2025-03-26 | Outpatient (CLI) | payer BC, SELFPAY ==
[2025-03-26 15:31] LABS: Hematocrit 38.5 % (37-47); Hemoglobin 13.1 g/dL (12.0-15.0); Mean Corp Hgb Conc 34.0 g/dL (32-36); Mean Corpuscular Volume 89.3 fL (81-99); Mean Platelet Vol. 9.8 fl (6.2-12.0); Platelet Count 209 K/mm3 (150-450); RBC Distribution Width CV 12.5 % (11.6-14.6); RBC Distribution Width SD 41.1 fl (35.1-43.9); Red Blood Count 4.31 M/mm3 (4.2-5.4); White Blood Count 6.1 K/mm3 (4.4-11.0)
[2025-03-26 15:33] LABS: Free T3 2.5 pg/mL (2.18-3.98)
[2025-03-26 15:39] LABS: AST(SGOT) 26 U/L (<=31); Alanine Aminotransfer ALT/SGPT 25 U/L (<=34); Albumin, Serum 4.5 g/dL (3.5-5.0); Alkaline Phosphatase 53 U/L (35-104); Anion Gap 11 (5-15); BUN 16 mg/dL (4-19); BUN/Creat Ratio 13.3 RATIO (10-20); Calcium,Total 9.3 mg/dL (7.6-11.0); Carbon Dioxide 26.0 mmol/L (21.0-32.0); Chloride 102 mmol/L (98-108); Globulin 2.2 g/dL (2.2-4.2); Glucose 89 mg/dL (70-99); Potassium 4.4 mmol/L (3.3-5.1)
--- OUTSIDE RECORDS SUMMARY | 2025-03-26 21:02 | XMS RPT_ITS | CCD ---
Author Organization [facility] CliniSyor Care Team Providers Care Mobile Developer Name Role Phone Cosme Joaquin Attending Unavailable OberCosme mckeon Admitting Unavailable ObCosme burrell Primary Care Unavailable OberCosme mckeon Admitting Unavailable ObCosme burrell Attending Unavailable ObCosme burrell Primary Care Unavailable EDILMA, [facility] Admitting Unavaila ble EDILMA, [facility] Attending Unavaila ble EDILMA, [facility] Primary Care Unavaila ble WOODY BENTLEY Admitting Unavailable SHEREEWOODY MORIN Attending Unavailable WOODY BENTLEY Primary Care Unavailable Cosme Joaquin Unavailable [phone] Unavailable Unavailable Unavailable Unavailable Cosme Joaquin Unavailable Cosme Harding Unavailable Unavailable [facility] SEAN Apscale Primary Care Provider Cosme Joaquin Primary Care [...] OBERHAUSER, DO COSME JOHN Referring Unavai lable Oberhauser Cosme HERNANDEZ Primary Care Provider OberhausCosme carreno DO Unavailable Dr. Cosme Joaquin Primary Care Provider Dr. Cosme Joaquin Referring Provider Dr. Niraj Carlson Attending Provider OBERHAUSER, COSME L Attending Unavailable OBERHAUSER, COSME L Referring Unavailable OBERHAUSER, COSME L Primary Care Unavailable OBERHAUSER, COSME L Attending Unavailable OBERHAUSER, COSME L Referring Unavailable OBERHAUSER, COSME L Primary Care Unavailable Unavailable Primary Care Provider Unavailabl e SAMANTHA RENAE Attending Unavailable SELF, SELF Referring Unavailable Janine Finley Attending Unavailable Janine Finley Referring Unavailable Oberhauser, Cosme Primary Care Unavailable Oberhauser, Cosme Primary Care Unavailable Niraj Carlson Attending Unavailable Niraj Carlson Referring Unavailable Oberhauser, Cosme Primary Care Unavailable Oberhauser, Cosme Attending Unavailable Oberhauser, Cosme Referring Unavailable Oberhauser, Cosme Primary Care Unavailable Oberhauser, Cosme Referring Unavailable Janine Finley Attending Unavailable OberhausDr. Cosme carreno DO Primary Care Provider Tushar SEED YEAST OPERATOR-CJanine Attending Provider Tushar SEED YEAST OPERATOR-CJanine Referring Provider Allergies Allergy Classification Reported Allergen(s) Allergy Type Date of Onset Reaction(s) Facility Opioid Agonists (2 sources) Codeine; Translations: [Codeine] Drug Allergy Nausea, Abdominal pain [facility] Work Phone: Penicillins (antibiotic) (2 sources) Penicillins; Translations: [Penicillins] Drug Allergy Hives [facility] [facility] Work Phone: (20 sources) Codeine; Translations: [codeine] Drug Allergy 5 Unknown, Nausea Only, [facility] Rep[facility] (20 sources) Penicillins; Translations: [penicillins] Propensity to adverse reactions to drug (disorder) 5 Unknown, Rash, Anaphylaxis [facility] Repository (1 source) Penicillin Drug Allergy Unknown [facility] Medications Current Medications Medication Drug Class(es) Dates Sig (Normalized) Sig (Original) azithromycin 250 mg oral tablet (2 sources) Macrolide Antimicrobial Start: 06-15-2024 End: 06-20-2024 Azithromycin (Zithromax Z-Julio C) 250 MG tablet Indications: Acute non-recurrent sinusitis, unspecified location Take 2 tablets (500 mg) on Day 1, then 1 tablet (250 mg) daily on Days 2-5 6 tablet 06/15/2024 06/20/2024 Active Start: 11-06-2021 End: 11-10-2021 Zithromax Z-Julio C [...] this medication unless otherwise directed by prescriber. Comment on above: Do not take dairy pr oducts, antacids, or iron preparations within one hour of this medication.Finish all this medication unless otherwise directed by prescriber. benzonatate 200 mg oral capsule (2 sources) Non-narcotic Antitussive Start: 06-15-20 24 take 1 capsule by mouth three times daily as needed for cough benzonatate 200 MG capsule Indications: Acute cough Take 1 capsule by mouth 3 times daily as needed for Cough. 21 capsule 06/15/2024 Active Start: 11-06-2021 End: 11-15-2021 take 2 capsules by mouth every eight hours as needed benzonatate 100 mg oral capsule ; 1-2 cap(s) orally every 8 hours, As Needed for cough Quantity: 60 Refills: 0 Ordered: 06-Nov-2021 Cosme Harding Start: 06-Nov-2021 End: 15-Nov-2021 Generic Substitution Allowed Comments: May cause drowsiness. Alcohol may intensify this effect. Use care when operating dangerous machinery.Swallow whole. Do not crush. Comment on above: May cause drowsiness . Alcohol may intensify this effect. Use care when operating dangerous machinery.Swallow whole. Do not crush. Blood-Glucose Sensor (Freestyle Vadim 3 Sensor) device (3 sources) Start: 07-18-20 Blood-Glucose Sensor (Freestyle Vadim 3 Sensor) device Active 0 .Route 2 July 18, 2023 1:00am As directed 24 hr buPROPion hydrochloride 300 mg extended release oral tablet (20 sources) Aminoketone Start: 08-17-19 End: 10-10-19 24 take 1 tablet by mouth once daily buPROPion XL (Wellbutrin XL) 300 mg 24 hr tablet Indications: Anxiety and depression Take 1 tablet (300 mg) by mouth once daily. 90 tablet 3 10/10/2023 Active buPROPion Quanti ty: 0 Refills: 0 Ordered: 06-Nov-2021 Cosme Harding Generic Substitution Allowed Comment on above: TAKE ONE TABLET BY M OUT EVERY DAY busPIRone hydrochloride 30 mg oral tablet (20 sources) Start: 02-26-2021 take 1 tablet by mouth three times daily as needed for anxiety busPIRone HCl - 10 MG Oral Tablet TAKE ONE TABLET BY MOUTH 3 TIMES A DAY NEEDED FOR ANXIETY Quantity: 90 Refills: 3 Ordered: 28-Apr-2021 Cosme Joaquin DO Start : 26-Feb-2021 Active Start: 08-25-2020 End: 10-10-2023 take 1 tablet by mouth twice daily busPIRone (Buspar) 30 mg tablet Indications: Anxiety and depression Take 1 tablet (30 mg) by mouth 2 times a day. 180 tablet 3 10/10/2023 Active Start: 08-25-2020 take 1 tablet by rodrigo th three times daily busPIRone HCl - 15 MG Oral Tablet Take one tablet by mouth three times a day. Quantity: 90 Refills: 3 Ordered: 22-Mar-2022 Cosme Joaquin DO Start : 25-Aug-2020 Active Start: 08-25-2020 take 1 tablet by rodrigo th three times daily as needed for anxiety busPIRone HCl - 10 MG Oral Tablet TAKE 1 TABLET 3 times daily PRN anxiety Quantity: 90 Refills: 3 Ordered: 27-Oct-2020 Cosme Joaquin DO Start : 25-Aug-2020 Active BuSpar Quantity: 0 Refills: 0 Ordered: 06-Nov-2021 Cosme Harding Generic Substitution Allowed Citalopram (1 source) Serotonin Reuptake Inhibitor CeleXA Quantity: 0 Refills: 0 Ordered: 06-Nov-2021 Cosme Harding Generic Substitution Allowed cyclobenzaprine hydrochloride 10 mg oral tablet (9 sources) Muscle Relaxant Start: 05-12-20 take 1 tablet by mouth once daily as needed Cyclobenzaprine 10 mg tablet Active 10 mg PO DAILY as needed May 25, 2023 12:00am Start: 02-14-2023 cyclobenzaprin e (Flexeril) 10 mg tablet Indications: Muscle spasm TAKE 1 TABLET 3 TIMES DAILYAS NEEDED FOR MUSCLE SPASMS 90 tablet 2 02/14/2023 Active Start: 09-27-2022 [facility] daily as needed Cyclobenzaprine HCl - 10 MG Oral Tablet TAKE 1 TABLET 3 TIMES DAILY NEEDED. Quantity: 1 Refills: 1 Ordered: 27-Sep-2022 Cosme Joaquin DO Start : 27-Sep-2022 Active Start: 08-25-2020 End: 01-19-2021 take 1 tablet by mouth three times daily as needed Cyclobenzaprine HCl - 10 MG Oral Tablet TAKE 1 TABLET 3 TIMES DAILY NEEDED. Quantity: 30 Refills: 1 Ordered: 27-Oct-2020 Cosme Joaquin DO Start : 25-Aug-2020 End : 19-Jan-2021 Complete ergocalciferol 1.25 mg oral capsule (19 sources) Provitamin D2 Compound Start: 06-12-2024 take 1 capsule by mouth every week Ergocalciferol 1.25 MG (94386 UT) capsule Take 1 capsule by mouth once a week. 06/12/2024 Active Start: 12-22-2022 take 1 capsule by mo [facility] every week ergocalciferol (Vitamin D-2) 1.25 MG (66384 UT) capsule Indications: Vitamin D deficiency TAKE 1 CAPSULE BY MOUTH EVERY WEEK 5 capsule 6 03/06/2024 Active Start: 05-13-2021 take 1 capsule by mo [facility] every week Vitamin D (Ergocalciferol) 1.25 MG (90487 UT) Oral Capsule take 1 capsule by mouth every week Quantity: 5 Refills: 6 Ordered: 28-Dec-2021 Cosme Joaquin DO Start : 13-May-2021 Active Ethinyl Estradiol / Norethindrone (2 sources) Estrogen Start: 04-21-2023 End: 10-10-2023 Linda 1.5-30 mg-mcg tablet tablet Indications: Uses control TAKE 1 TABLET ONCE DAILY FOR 21 DAYS, THEN DO NOT TAKE ANY TABLETS FOR 7 DAYS 63 tablet 3 04/21/2023 10/10/2023 Discontinued (Therapy completed) Start: 04-22-2022 End: 04-04-2023 Loestrin 1.5/30, 21, 1.5-30 mg-mcg tablet tablet Take by mouth. 0 04/22/2022 04/04/2023 Discontinued (Therapy completed) ferrous gluconate (16 sources) Start: 08-05-2016 take 28 mg by mouth once daily Ferrous Gluconate Active 28 MG PO DAILY August 05, 2016 1:56am Start: 08-05-2016 End: 05-25-2023 Ferrous Gluconate 236 MG tab let Discontinued 28 mg PO DAILY August 05, 2016 1:00am May 25, 2023 4:38pm Start: 08-05-2016 End: 05-25-2023 take 28 mg by mouth once daily Ferrous Gluconate Disco ntinued 28 MG PO DAILY August 05, 2016 1:00am May 25, 2023 4:38pm Start: 08-05-2016 take 28 mg by mouth once daily Ferrous Gluconate Active 28 MG PO DAILY August 05, 2016 12:00am Start: 08-05-2016 take 28 mg by mouth once daily Ferrous Gluconate Active 28 MG PO DAILY August 05, 2016 1:00am levothyroxine sodium 0.137 mg oral tablet (20 sources) l-Thyroxine Start: 04-23-2024 levothyroxine (Synthroid, Levoxyl) 137 mcg tablet Indications: Thyroid disease TAKE 1 TABLET DAILY TUESDAY THROUGH TUESDAY; TAKE 2 TABLETS ON TUESDAY 135 tablet 1 04/23/2024 Active Start: 10-10-2023 levothyroxine (Synthroid) 137 mcg tablet Indications: Thyroid disease TAKE 1 TABLET DAILY TUESDAY THROUGH TUESDAY; TAKE 2 TABLETS ON TUESDAY 135 tablet 1 10/10/2023 Active Start: 09-13-2023 take 2 tablets by mo uth once daily Levothyroxine 137 mcg tablet Active 137 ug PO .qd 2 on SundaysSeptember 13, 2023 8:37am Start: 07-18-2023 End: 10-10-2023 take 1 tablet by mouth once Levothyroxine 137 mcg tabl et Discontinued 137 ug PO .qd, 1.5 on SundaysSeptember 06, 2023 8:14am September 13, 2023 8:37am Start: 05-25-2023 End: 07-18-2023 take 1 capsule by mouth once daily Levothyroxine 150 mcg capsule Discontinued 150 ug PO DAILY May 25, 2023 12:00am July 18, 2023 4:23pm Start: 03-22-2023 End: 03-21-2024 take 1 tablet by mouth once daily levothyroxine (Synthroid) 150 mcg tablet Indications: Acquired hypothyroidism Take 1 tablet (150 mcg) by mouth once daily. 90 tablet 1 03/22/2023 10/10/2023 Discontinued (Therapy completed) Start: 10-02-2019 take 1 tablet by rodrigo once daily Levothyroxine Sodium 125 MCG Oral Tablet TAKE 1 TABLET DAILY. Quantity: 30 Refills: 5 Ordered: 28-Nov-2020 Cosme Joaquin DO Start : 02-Oct-2019 Active Start: 08-05-2016 End: 05-25-2023 Levothyroxine 137 MCG tablet Discontinued 137 ug PO DIRECTED August 05, 2016 1:00am May 25, 2023 4:36pm take 1 capsule by mo ut once daily Levothyroxine 137 mcg cap Take 137 mcg by mouth once daily. 0 Active Synthroid Quanti ty: 0 Refills: 0 Ordered: 06-Nov-2021 Danny Vicente Generic Substitution Allowed Comment on above: Take 137 mcg by mout h once daily. polymyxin b [id number] unt/ml / trimethoprim 1 mg/ml ophthalmic solution (1 source) Dihydrofolate Reductase Inhibitor Antibacterial, Polymyxin-class Antibacterial Start: 11-07-19 End: 11-13-19 take 1 drop(s) into the eye(s) four times daily polymyxin B-trimethoprim 10,000 units-1 mg/mL ophthalmic solution ; 1 drop(s) in affected eye 4 times a day x 7 days Quantity: 1 Refills: 0 Ordered: 06-Nov-2021 Cosme Harding Start: 06-Nov-2021 End: 12-Nov-2021 Generic Substitution Allowed Comments: For the eye. Comment on above: For the eye. SUMAtriptan 25 mg oral tablet (19 sources) Serotonin-1b and Serotonin-1d Receptor Agonist Start: 08-18-19 21 SUMAtriptan (Imitrex) 25 mg tablet Take by mouth. 2020 Active Superfruit Gummies (3 sources) Start: 05-25-20 23 Superfruit Gummies Active PO May 25, 2023 12:00am traZODone hydrochloride 50 mg oral tablet (4 sources) Serotonin Reuptake Inhibitor Start: 10-10-19 24 End: 04-23-20 25 traZODone (Desyrel) 50 mg tablet Indications: Anxiety and depression Take 1 tablet (50 mg) by mouth as needed at bedtime for sleep. 90 tablet 3 04/23/2024 04/23/2025 Active 24 hr venlafaxine 225 mg extended release oral tablet (20 sources) Serotonin and Norepinephrine Reuptake Inhibitor Start: 06-28-20 End: 10-10-19 take 1 tablet by mouth once daily venlafaxine 225 mg 24 hr tablet Indications: Anxiety and depression Take 1 tablet (225 mg) by mouth once daily. 90 tablet 3 10/10/2023 Active Start: 10-27-2020 take 1 capsule by [facility] once daily at mealtime Venlafaxine HCl ER 150 MG Oral Capsule Extended Release 24 Hour TAKE 1 CAPSULE ONCE DAILY WITH FOOD. Quantity: 90 Refills: 3 Ordered: 29-Aug-2021 Cosme Joaquin DO Start : 27-Oct-2020 Active Completed/Discontinued Medications Medication Drug Class(es) Dates Sig (Normalized) Sig (Original) cholecalciferol 1.25 mg oral capsule (20 sources) Vitamin D Start: 06-29-2021 End: 06-28-2022 D3-50 1.25 MG (35019 UT) Oral Capsule Take 1 cap q7 days Quantity: 12 Refills: 1 Ordered: 29-Jun-2021 Cosme Joaquin DO Start : 29-Jun-2021 End : 28-Jun-2022 Complete Start: 05-13-2021 take 1 capsule by [facility] every week cholecalciferol, Vitamin D3, (VITAMIN D3) 1,250 mcg (50,000 unit) cap capsule Indications: Vitamin D deficiency Take 1 capsule by mouth one time a week. 12 capsule 2 05/13/2021 Active Start: 08-05-2016 End: 05-25-2023 Cholecalciferol (Vitamin D3) (D3-2000) 2,000 UNIT capsule Discontinued 5000 U PO DAILY August 05, 2016 1:00am May 25, 2023 4:37pm Comment on above: Take 1 capsule by [facility] one time a week. DULoxetine 30 mg delayed release oral capsule (20 sources) Serotonin and Norepinephrine Reuptake Inhibitor Start: 10-27-2020 End: 01-19-2021 DULoxetine HCl - 30 MG Oral Capsule Delayed Release Particles TAKE 1 CAPSULE by mouth every other day x 2 weeks then stop Quantity: 8 Refills: 0 Ordered: 08-Dec-2020 Cosme Joaquin DO Start : 27-Oct-2020 End : 19-Jan-2021 Complete Start: 08-17-2020 End: 05-25-2023 take 1 capsule by mouth once daily Duloxetine 30 MG capsule,delayed release(DR/EC) Discontinued 30 mg PO DAILY August 17, 2020 1:00am May 25, 2023 4:37pm Comment on above: TAKE 1 CAPSULE DAILY escitalopram 20 mg oral tablet (3 sources) Serotonin Reuptake Inhibitor Start: 1 End: 2 escitalopram oxalate (LEXAPRO) 20 mg tablet TAKE 1 TABLET DAILY 90 tablet 3 09/29/2020 08/02/2022 Discontinued Comment on above: TAKE 1 TABLET DAILY ferrous sulfate 325 mg oral tablet (12 sources) Start: 1 End: 2 take 1 tablet by mouth twice daily FeroSul 325 (65 Fe) MG Oral Tablet TAKE 1 TABLET BY MOUTH TWICE DAILY Quantity: 60 Refills: 3 Ordered: 30-Mar-2021 Cosme Joaquin DO Start : 28-Nov-2020 End : 28-Jun-2022 Complete FLAXSEED OIL (OMEGA 3 ORAL) (3 sources) End: 2 take 2000 mg by mouth twice daily FLAXSEED OIL (OMEGA 3 ORAL) Take 2,000 mg by mouth twice daily. 0 08/02/2022 Discontinued take 2000 mg by mouth twice poncho y FLAXSEED OIL (OMEGA 3 ORAL) Take 2,000 mg by mouth twice daily. 0 Active Comment on above: Take 2,000 mg by rodrigo th twice daily. ibuprofen 600 mg oral tablet (16 sources) Nonsteroidal Anti-inflammatory Drug Start: 6 End: 3 take 1 tablet by mouth four times daily as needed for pain Ibuprofen 600 MG tablet Discontinued 600 mg PO 4 TIMES DAILY as needed for pain or cramping August 05, 2016 6:31am May 25, 2023 4:38pm Loestrin 1.5/30 (21) 1.5-30 MG-MCG Oral Tablet (5 sources) Start: 2 Loestrin 1.5/30 (21) 1.5-30 MG-MCG Oral Tablet take 1 tablet by mouth once daily for 21 DAYS, THEN DO NOT TAKE ANY TABS FOR 7 DAYS. Quantity: 3 Refills: 3 Ordered: 25-Aug-2022 Cosme Joaquin DO Start : 22-Apr-2022 Active Start: 04-22-2022 Loestrin 1.5/3 0 (21) 1.5-30 MG-MCG Oral Tablet take 1 tablet by mouth once daily for 21 DAYS, THEN DO NOT TAKE ANY TABS FOR 7 DAYS. Quantity: 1 Refills: 11 Ordered: 22-Apr-2022 Cosme Joaquin DO Start : 22-Apr-2022 Active multivitamin tablet (3 sources) take 1 tablet by mouth once daily multivitamin tablet Take 1 tablet by mouth once daily. 0 Active Comment on above: Take 1 tablet by rodrigo th once daily. naproxen 500 mg oral tablet (1 source) Nonsteroidal Anti-inflammatory Drug Start: 1 End: 1 take 1 tablet by mouth every twelve hours as needed Naproxen 500 MG Oral Tablet TAKE 1 TABLET BY MOUTH EVERY 12 HOURS NEEDED Quantity: 20 Refills: 1 Ordered: 27-Oct-2020 Cosme Joaquin DO Start : 25-Aug-2020 End : 19-Jan-2021 Complete Problems Active Problems Problem Classification Problem Date Documented Date Episodic/Chronic Acute bronchitis (2 sources) Acute bronchitis; Translations: [Acute bronchitis] 11-06-2021 Episodic Anxiety disorders (20 sources) Mixed anxiety and depressive disorder; Translations: [Anxiety state, unspecified] Onset: 08-14-2019 08-14-2019 Chronic Diabetes mellitus without complication (4 sources) Prediabetes; Translations: [Prediabetes] 07-18-2023 Episodic Headache; including migraine (20 sources) Tension-type headache; Translations: [Tension headache] Onset: 04-04-2023 04-04-2023 Chronic Headache; including migraine (16 sources) Headache; Translations: [Headache] 2020 Episodic Inflammation; infection of eye (except that caused [...] source) Cough; Translations: [Acute cough] Episodic Other lower respiratory disease (1 source) Cough; Translations: [Acute cough] 06-15-2024 Episodic Other nutritional; endocrine; and metabolic disorders [...] encounter status; Translations: [Screening for diabetes mellitus] Onset: 10-24-2024 Episodic Other upper respiratory disease (2 sources) Nasal congestion; Translations: [Other disease of nasal cavity and sinuses] 11-06-2021 Episodic Other upper respiratory infections (6 sources) Acute sinusitis; Translations: [Acute sinusitis, unspecified] Onset: 06-15-2024 11-06-2021 Episodic Spondylosis; intervertebral disc disorders; other back problems (1 source) Neck pain; Translations: [Cervicalgia] Episodic Thyroid disorders (19 sources) Multinodular goiter; Translations: [Nontoxic multinodular goiter] Onset: 05-30-2009 10-27-2015 Chronic Unclassified (2 sources) COLD SYMPTOMS 11-06-2021 Comment on above: COLD SYMPTOMS Unclassified (1 source) 6 MONTH FUV 06-29-2021 Comment on above: 6 MONTH FUV Unclassified (1 source) Acute conjunctivitis of left eye 11-06-2021 Unclassified (1 source) Acute cough; Translations: [Acute cough] Onset: 06-15-2024 Past or Other Problems Problem Classification Problem Date Documented Da te Episodic/Chronic Administrative/social admission (3 sources) Persons encountering health services in other specified circumstances; Translations: [Persons encountering health services in other specified circumstances] Onset: 09-24-2019 Episodic Other connective tissue disease (3 sources) Spasm; Translations: [Other muscle spasm] Onset: 10-10-2023 10-10-2023 Episodic Other connective tissue disease (2 sources) Other muscle spasm; Translations: [Other muscle spasm] Onset: 10-10-2023 Episodic Other and delivery including normal (3 [...] Translations: [Epidermal cyst] Onset: 08-30-2012 08-30-2012 Episodic Thyroid disorders (20 sources) Disorder of thyroid gland; Translations: [Unspecified disorder of thyroid] Onset: 04-04-2023 04-04-2023 Episodic Unclassified (3 sources) Onset: 04-04-2023 04-04-2023 Unclassified (1 source) Acute cough; Translations: [Acute cough] Onset: 06-15-2024 Viral infection (3 sources) Condyloma acuminatum of the anogenital region; Translations: [Anogenital (venereal) warts] Onset: 07-28-2006 07-28-2006 Episodic Results Test Name Value Interpretation Reference Range Facility Breast imaging reportOrdered By: Ling Burnette on 10-16-2024 Study report [facility] Imaging Services [address] [place] [address] [id number] SCRN MAMM (CAD)W/ANN MARIE BILAT MR#: [id number] Acct: [id number] Name: SHERITA YU Rep #: [id number] : 1985 F 39 From: Britt Burnette MD PCP: Dr. Cosme Joaquin, DO Status: R EG CLI Study:SCRN MAMM (CAD)W/ANN MARIE BILAT Date of Exa m: 10/15/24 Exam# [id number] Ordering Dr: Janine Finley SEED YEAST OPERATOR-C PROCEDURE: SCRN MAMM (CAD)W/ANN MARIE BILAT REASON FOR EXAM: F, Age 39 y/o, presents for annual screening mammogram. Family history of breast cancer in maternal grandmother in her late 50s. TECHNIQUE: Bilateral screening digital breast tomosynthesis with 2D and 3D images. Computeraided detection. COMPARISON: 10/13/2023, 08/16/2022 FINDINGS: There are scattered areas of fibroglandular density. No suspicious masses, areas of developing architectural distortion, or suspicious calcifications. BI/SCRN MAMM (CAD)W/ANN MARIE BILAT IMPRESSION: There is no mammographic evidence of malignancy. BI-RADS 1: NEGATIVE. RECOMMEND ANNUAL MAMMOGRAPHIC SCREENING. Follow-up code: Routine Follow-up. The patient will be notified of the results by letter. Reading Location: [id number] CC: SEED YEAST OPERATORReginaldo Finley; Dr. Cosme Joaquin DO ~ Principal Quality Engineer: Signed [facility] SCRN MAMM (CAD)W/ANN MARIE BILATo n 10-15-2024 SCRN MAMM (CAD)W/ANN MARIE BILAT [facility] Imaging Services [address] [place] [address] [id number] SCRN MAMM (CAD)W/ANN MARIE BILAT MR#: [id number] Acct: [id number] Name: SHERITA YU Rep #: [id number] : 1985 F 39 From: Ling Burnette MD PCP: Dr. Cosme Joaquin DO Status: REG CLI Study: SCRN MAMM (CAD)W/ANN MARIE BILAT Date of Exam: 10/06 Exam# [id number] Ordering Dr: Janine Finley PROCEDURE: SCRN MAMM (CAD)W/ANN MARIE BILAT REASON FOR EXAM: F, Age 39 y/o, presents for annual screening mammogram. Family history of breast cancer in maternal grandmother in her late 50s. TECHNIQUE: Bilateral screening digital breast tomosynthesis with 2D and 3D images. Computer aided detection. COMPARISON: 10/13/2023, 08/16/2022 FINDINGS: There are scattered areas of fibroglandular density. No suspicious masses, areas of developing architectural distortion, or suspicious calcifications. BI/SCRN MAMM (CAD)W/ANN MARIE BILAT IMPRESSION: There is no mammographic evidence of malignancy. BI-RADS 1: NEGATIVE. RECOMMEND ANNUAL MAMMOGRAPHIC SCREENING. Follow-up code: Routine Follow-up. The patient will be notified of the results by letter. Reading Location: [facility] CC: NABIL Finley; Dr. Cosme Joaquin DO Principal Quality Engineer: Signed Normal [facility] Painter Office Visit Reporton 06-20-2024 Painter Office Visit Report [facility] [address], [address] [place] [address] OFFICE VISIT Date of Service: 06/20/24 MR#: [id number] Acct: [id number] Name: SHERITA YU Rep #: [id number] : 1985 Provider: NABIL Becerra Age/Sex: 38/F [place] [facility] [place]: Signed with Addenda ADDENDUM by NABIL Finley on 06/20/24 at 0848 Assessment and Plan Assessment and Plan Orders: Orders SCRN MAMM (CAD)W/ANN MARIE BILAT Today Z12.31 - Encounter for screening mammogram for malignant neoplasm of breast Plan Details Additional Comments: Patients BP today was 123/76. Unable to enter due to technical error. 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) Chief Complaint: annual Civil Celebrant Required: No Is patient in pain?: No Allergies codeine Allergy (Verified 06/20/24 08:20) Hives Penicillins Allergy (Verified 06/20/24 08:20) Hives Medications ???Medication ???Instructions ???Recorded ???Confirmed ???Type bupropion HCl 300 mg 24 hr tablet, 300 mg DAILY 08/17/20 06/20/24 History extended release Superfruit Gummies PO 05/25/23 06/20/24 History buspirone 30 mg tablet 30 mg PO BID 05/25/23 06/20/24 History cyclobenzaprine 10 mg tablet 10 mg PO DAILY PRN 05/25/23 06/20/24 History ergocalciferol (vitamin D2) 1,250 1,250 mcg PO QWEEK 05/25/23 06/20/24 History mcg (50,000 unit) capsule venlafaxine 225 mg tablet,extended 225 mg PO DAILY 05/25/23 06/20/24 History release 24 hr FreeStyle Vadim 3 Sensor #2 ea 07/18/23 07/18/23 Rx (blood-glucose sensor) levothyroxine 137 mcg tablet 137 mcg PO .qd 2 on Sundays #1 TAB 09/13/23 06/20/24 Rx Is last menstrual period known: Yes Last Menstrual Period: 06/11/24 Post menopausal: No Patient : No : No Control Method: none- vasectomy [facility] Medical History Pre-diabetes 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 delivery delivered Family History Mother Anemia Arthritis Hypercholesterolemia Father Hypertension Hypercholesterolemia Cancer Brother Mental disorder Grandmother Breast cancer Diabetes Grandfather Myocardial infarction Social History (Updated 06/20/24 @ 08:23 by Shawna Light) number of children: 3 current occupational status: employed current occupation: [employer] sexually active: Yes Smoking Status: Former smoker alcohol intake: current details: Socially; every couple of months substance use type: does not use what type of physical activity do you participate in: other details: Crossfit 3-4x week lawson/anabaptist: [employer] [place] seatbelt use: always do you feel safe at home: Yes additional social history: Ramana- History 4 Elective abortions Hx Para 3 Spontaneous abortions 1 Hx # Term Pregnancies Ectopic pregnancies Hx # Pregnancies Multiple births # of living children 3 Past Pregnancies Del. Date Name GA/Weeks Outcome Route Bth Weight Infant Gen Labor Lgth Anesthesia Del Locatn Provider FOB 08/16/06 Christal live - full term [facility] 05/03/13 Alexandro live - full term 08/05/16 Judd live - full term [facility] HPI Encounter for routine gynecological examination Details: SHERITA YU is a 38 year old who presents for annual exam. She reports no issues or concerns today. Last PAP: 05/2021; normal cyt/neg HPV History of abnormal PAP: ASCUS > 10 year; normal since. Last mammogram: 10/2023; negative History of abnormal mammogram: no Colon cancer screening: never Other preventative health care screenings: [place]--PCP. Female Reproductive History Last Menstrual Period: 06/11/24 Cycle Length: 21-35 Bleeding Duration: 5 Questions: metorrhagia: No, sexually active: Yes (partial vasectomy; condoms), dyspareunia: No and PCB: No ROS Const Constitutional: Denies chills, fatigue, fever(s), headache(s) or weight loss Eyes Eyes: Denies change in vision ENT ENT: Denies dizziness Resp Resp: Denies cough GI GI: Denies abdominal pain, constipation or nausea : Denies difficulty voiding, dysuria, hematuria, nipple discharge, pelvic pain, prolapse symptoms, urinary incontinence, vaginal discharge, vaginal dryness, v (more content not included)... Normal [facility] Adrenocorticotropic Hormoneo n 04-06-2024 ACTH 14.0 pg/mL Normal 7.2-63.3 [facility] Comment on above: Order Comment: TSH W ITH REFLEX TO FT4 IF ABNORMAL. N N Result Comment: ACTH reference interval for samples collected between 7 and 10 AM. Performed at: [address] [id number] Building Equipment Inspector: Willian Mahajan PhD, Phone: [phone] Performed By: #### L 3300.1500, L3300.1000, L509.6000, L3100.5170, L100.0100, L500.4050, L501.9520, L3100.5125 #### [facility] [address] [place], [address] DHEA Sulfateon 04-06-2024 DHEA SULFATE 61.6 ug/dL Normal 57.3-279.2 [facility] Comment on above: Order Comment: TSH W ITH REFLEX TO FT4 IF ABNORMAL. N N Performed By: #### L 3300.1500, L3300.1000, L509.6000, L3100.5170, L100.0100, L500.4050, L501.9520, L3100.5125 #### [facility] [address] [place], [address] CBC W/Diff, Automatedon 03-09 Absolute Lymph 2.11 X10 3/uL Normal 0.83-4.51 [facility] Comment on above: Order Comment: TSH W ITH REFLEX TO FT4 IF ABNORMAL. Performed By: #### L 3300.1500, L3300.1000, L509.6000, L3100.5170, L100.0100, L500.4050, L501.9520, L3100.5125 #### [facility] [address] [place], [place], [id number] Absolute Neut 4.9 X10 3/uL Normal 2.0-7.7 [facility] Comment on above: Order Comment: TSH W ITH REFLEX TO FT4 IF ABNORMAL. Performed By: #### L 3300.1500, L3300.1000, L509.6000, L3100.5170, L100.0100, L500.4050, L501.9520, L3100.5125 #### [facility] [address] [place], [address] Basophils/100 WBC (Bld) 0.5 % Normal 0-1 [facility] Comment on above: Order Comment: TSH W ITH REFLEX TO FT4 IF ABNORMAL. Performed By: #### L 3300.1500, L3300.1000, L509.6000, L3100.5170, L100.0100, L500.4050, L501.9520, L3100.5125 #### [facility] [address] [place], [address] Eosinophils/100 WBC (Bld) 0.7 % Normal 0-5 [facility] Comment on above: Order Comment: TSH W ITH REFLEX TO FT4 IF ABNORMAL. Performed By: #### L 3300.1500, L3300.1000, L509.6000, L3100.5170, L100.0100, L500.4050, L501.9520, L3100.5125 #### [facility] [address] [place], [address] Erythrocyte distribution width (RBC) [Ratio] 13.6 % Normal 11.6-14.6 [facility] Comment on above: Order Comment: TSH W ITH REFLEX TO FT4 IF ABNORMAL. Performed By: #### L 3300.1500, L3300.1000, L509.6000, L3100.5170, L100.0100, L500.4050, L501.9520, L3100.5125 #### [facility] [address] [place], [address] Hematocrit (Bld) [Volume fraction] 41.2 % Normal 37-47 [facility] Comment on above: Order Comment: TSH W ITH REFLEX TO FT4 IF ABNORMAL. Performed By: #### L 3300.1500, L3300.1000, L509.6000, L3100.5170, L100.0100, L500.4050, L501.9520, L3100.5125 #### [facility] [address] [place], [address] Hemoglobin (Bld) [Mass/Vol] 13.6 g/dL Normal 12.0-15.0 [facility] Comment on above: Order Comment: TSH W ITH REFLEX TO FT4 IF ABNORMAL. Performed By: #### L 3300.1500, L3300.1000, L509.6000, L3100.5170, L100.0100, L500.4050, L501.9520, L3100.5125 #### [facility] [address] [place], [address] IG% 0.300 Normal 0.0-0.9 [facility] Comment on above: Order Comment: TSH W ITH REFLEX TO FT4 IF ABNORMAL. Result Comment: IG% - Immature Granulocytes (promyelocytes, myelocytes and metamyelocytes) > 1% indicates that a LEFT SHIFT is Present. Performed By: #### L 3300.1500, L3300.1000, L509.6000, L3100.5170, L100.0100, L500.4050, L501.9520, L3100.5125 #### [facility] [address] [place], [address] Lymphocytes/100 WBC (Bld) 27.7 % Normal 19-41 [facility] Comment on above: Order Comment: TSH W ITH REFLEX TO FT4 IF ABNORMAL. Performed By: #### L 3300.1500, L3300.1000, L509.6000, L3100.5170, L100.0100, L500.4050, L501.9520, L3100.5125 #### [facility] [address] [place], [address] MCH (RBC) [Entitic mass] 28.9 pg Normal 27.0-32.0 [facility] Comment on above: Order Comment: TSH W ITH REFLEX TO FT4 IF ABNORMAL. Performed By: #### L 3300.1500, L3300.1000, L509.6000, L3100.5170, L100.0100, L500.4050, L501.9520, L3100.5125 #### [facility] [address] [place], [address] MCHC (RBC) [Mass/Vol] 33.0 g/dL Normal 32-36 [facility] Comment on above: Order Comment: TSH W ITH REFLEX TO FT4 IF ABNORMAL. Performed By: #### L 3300.1500, L3300.1000, L509.6000, L3100.5170, L100.0100, L500.4050, L501.9520, L3100.5125 #### [facility] [address] [place], [address] MCV (RBC) [Entitic vol] 87.5 fL Normal 81-99 [facility] Comment on above: Order Comment: TSH W ITH REFLEX TO FT4 IF ABNORMAL. Performed By: #### L 3300.1500, L3300.1000, L509.6000, L3100.5170, L100.0100, L500.4050, L501.9520, L3100.5125 #### [facility] [address] [place], [address] Monocytes/100 WBC (Bld) 7.3 % Normal 0-10 [facility] Comment on above: Order Comment: TSH W ITH REFLEX TO FT4 IF ABNORMAL. Performed By: #### L 3300.1500, L3300.1000, L509.6000, L3100.5170, L100.0100, L500.4050, L501.9520, L3100.5125 #### [facility] [address] [place], [address] Neutrophils/100 WBC (Bld) 63.5 % Normal 47-70 [facility] Comment on above: Order Comment: TSH W ITH REFLEX TO FT4 IF ABNORMAL. Performed By: #### L 3300.1500, L3300.1000, L509.6000, L3100.5170, L100.0100, L500.4050, L501.9520, L3100.5125 #### [facility] [address] [place], [address] Nucleated RBC (Bld) [#/Vol] 0 10*3/uL Normal 0-5 [facility] Comment on above: Order Comment: TSH W ITH REFLEX TO FT4 IF ABNORMAL. Performed By: #### L 3300.1500, L3300.1000, L509.6000, L3100.5170, L100.0100, L500.4050, L501.9520, L3100.5125 #### [facility] [address] [place], [address] Platelet mean volume (Bld) [Entitic vol] 9.7 fL Normal 6.2-12.0 [facility] Comment on above: Order Comment: TSH W ITH REFLEX TO FT4 IF ABNORMAL. Performed By: #### L 3300.1500, L3300.1000, L509.6000, L3100.5170, L100.0100, L500.4050, L501.9520, L3100.5125 #### [facility] [address] [place], [address] Platelets (Bld) [#/Vol] 220 10*3/uL Normal 150-450 [facility] Comment on above: Order Comment: TSH W ITH REFLEX TO FT4 IF ABNORMAL. Performed By: #### L 3300.1500, L3300.1000, L509.6000, L3100.5170, L100.0100, L500.4050, L501.9520, L3100.5125 #### [facility] [address] [place], [address] RBC (Bld) [#/Vol] 4.71 10*6/uL Normal 4.2-5.4 [facility] Comment on above: Order Comment: TSH W ITH REFLEX TO FT4 IF ABNORMAL. Performed By: #### L 3300.1500, L3300.1000, L509.6000, L3100.5170, L100.0100, L500.4050, L501.9520, L3100.5125 #### [facility] [address] [place], [address] RDW SD 44.1 fl High 35.1-43.9 [facility] Comment on above: Order Comment: TSH W ITH REFLEX TO FT4 IF ABNORMAL. Performed By: #### L 3300.1500, L3300.1000, L509.6000, L3100.5170, L100.0100, L500.4050, L501.9520, L3100.5125 #### [facility] [address] [place], [address] WBC (Bld) [#/Vol] 7.6 10*3/uL Normal 4.4-11.0 [facility] Comment on above: Order Comment: TSH W ITH REFLEX TO FT4 IF ABNORMAL. Performed By: #### L 3300.1500, L3300.1000, L509.6000, L3100.5170, L100.0100, L500.4050, L501.9520, L3100.5125 #### [facility] [address] [place], [address] CORTISOL SERUMon 04-05-2024 CORTISOL 11.70 ug/dL Normal 3.44-22.45 [facility] Comment on above: Order Comment: TSH W ITH REFLEX TO FT4 IF ABNORMAL. Result Comment: Adul t (AM) 5.27 - 22.45 ug/dL Adult (PM) 3.44 - 16.76 ug/dL Please note revised CORTISOL reference range effective 2019. Performed By: #### L 3300.1500, L3300.1000, L509.6000, L3100.5170, L100.0100, L500.4050, L501.9520, L3100.5125 #### [facility] [address] [place], [address] Comprehensive Metabolic Prof ilon 04-05-2024 Albumin [Mass/Vol] 3.9 g/dL Normal 3.2-5.0 [facility] Comment on above: Order Comment: TSH W ITH REFLEX TO FT4 IF ABNORMAL. Performed By: #### L 3300.1500, L3300.1000, L509.6000, L3100.5170, L100.0100, L500.4050, L501.9520, L3100.5125 #### [facility] [address] [place], [address] Albumin/Globulin [Mass ratio] 1.2 {ratio} Normal 0.9-2.4 [facility] Comment on above: Order Comment: TSH W ITH REFLEX TO FT4 IF ABNORMAL. Performed By: #### L 3300.1500, L3300.1000, L509.6000, L3100.5170, L100.0100, L500.4050, L501.9520, L3100.5125 #### [facility] [address] [place], [address] ALK P 74 U/L Normal 45-117 [facility] Comment on above: Order Comment: TSH W ITH REFLEX TO FT4 IF ABNORMAL. Performed By: #### L 3300.1500, L3300.1000, L509.6000, L3100.5170, L100.0100, L500.4050, L501.9520, L3100.5125 #### [facility] [address] [place], [address] ALT [Catalytic activity/Vol] 21 U/L Normal 13-56 [facility] Comment on above: Order Comment: TSH W ITH REFLEX TO FT4 IF ABNORMAL. Performed By: #### L 3300.1500, L3300.1000, L509.6000, L3100.5170, L100.0100, L500.4050, L501.9520, L3100.5125 #### [facility] [address] [place], [address] AST [Catalytic activity/Vol] 16 U/L Normal 15-37 [facility] Comment on above: Order Comment: TSH W ITH REFLEX TO FT4 IF ABNORMAL. Performed By: #### L 3300.1500, L3300.1000, L509.6000, L3100.5170, L100.0100, L500.4050, L501.9520, L3100.5125 #### [facility] [address] [place], [address] Bilirubin [Mass/Vol] 0.20 mg/dL Normal 0.20-1.00 [facility] Comment on above: Order Comment: TSH W ITH REFLEX TO FT4 IF ABNORMAL. Result Comment: For patients on eltrombopag therapy, use of Dimension [place] TBIL is not recommended. Performed By: #### L 3300.1500, L3300.1000, L509.6000, L3100.5170, L100.0100, L500.4050, L501.9520, L3100.5125 #### [facility] [address] [place], [address] BUN/CRE 22.9 RATIO High 10-20 [facility] Comment on above: Order Comment: TSH W ITH REFLEX TO FT4 IF ABNORMAL. Performed By: #### L 3300.1500, L3300.1000, L509.6000, L3100.5170, L100.0100, L500.4050, L501.9520, L3100.5125 #### [facility] [address] [place], [address] CA,Total 8.8 mg/dL Normal 8.5-10.1 [facility] Comment on above: Order Comment: TSH W ITH REFLEX TO FT4 IF ABNORMAL. Performed By: #### L 3300.1500, L3300.1000, L509.6000, L3100.5170, L100.0100, L500.4050, L501.9520, L3100.5125 #### [facility] [address] [place], [address] Chloride [Moles/Vol] 105 mmol/L Normal 98-107 [facility] Comment on above: Order Comment: TSH W ITH REFLEX TO FT4 IF ABNORMAL. Performed By: #### L 3300.1500, L3300.1000, L509.6000, L3100.5170, L100.0100, L500.4050, L501.9520, L3100.5125 #### [facility] [address] [place], [address] CO2 [Moles/Vol] 27.0 mmol/L Normal 21.0-32.0 [facility] Comment on above: Order Comment: TSH W ITH REFLEX TO FT4 IF ABNORMAL. Performed By: #### L 3300.1500, L3300.1000, L509.6000, L3100.5170, L100.0100, L500.4050, L501.9520, L3100.5125 #### [facility] [address] [place], [place], [id number] (751) Creatinine [Mass/Vol] 0.92 mg/dL Normal 0.55-1.02 [facility] Comment on above: Order Comment: TSH W ITH REFLEX TO FT4 IF ABNORMAL. Result Comment: The validity of the calculated GFR GFRAA in patients over 70 years has not been determined. Clinical correlation is essential. Performed By: #### L 3300.1500, L3300.1000, L509.6000, L3100.5170, L100.0100, L500.4050, L501.9520, L3100.5125 #### [facility] [address] [place], [address] EST GFR - AA 87 mL/min Normal >60 [facility] Comment on above: Order Comment: TSH W ITH REFLEX TO FT4 IF ABNORMAL. Result Comment: Afri can Nauruan GFR Calc Performed By: #### L 3300.1500, L3300.1000, L509.6000, L3100.5170, L100.0100, L500.4050, L501.9520, L3100.5125 #### [facility] [address] [place], [address] GAP 5 Normal 5-15 [facility] Comment on above: Order Comment: TSH W ITH REFLEX TO FT4 IF ABNORMAL. Performed By: #### L 3300.1500, L3300.1000, L509.6000, L3100.5170, L100.0100, L500.4050, L501.9520, L3100.5125 #### [facility] [address] [place], [address] GFR/1.73 sq M.predicted among non-blacks MDRD (S/P/Bld) [Vol rate/Area] 72 mL/min/{1.73_m2} Normal >60 [facility] Comment on above: Order Comment: TSH W ITH REFLEX TO FT4 IF ABNORMAL. Result Comment: Non- GFR Calc Performed By: #### L 3300.1500, L3300.1000, L509.6000, L3100.5170, L100.0100, L500.4050, L501.9520, L3100.5125 #### [facility] [address] [place], [address] Globulin (S) [Mass/Vol] 3.3 g/dL Normal 2.2-4.2 [facility] Comment on above: Order Comment: TSH W ITH REFLEX TO FT4 IF ABNORMAL. Performed By: #### L 3300.1500, L3300.1000, L509.6000, L3100.5170, L100.0100, L500.4050, L501.9520, L3100.5125 #### [facility] [address] [place], [address] Glucose [Mass/Vol] 95 mg/dL Normal 74-106 [facility] Comment on above: Order Comment: TSH W ITH REFLEX TO FT4 IF ABNORMAL. Performed By: #### L 3300.1500, L3300.1000, L509.6000, L3100.5170, L100.0100, L500.4050, L501.9520, L3100.5125 #### [facility] [address] [place], [address] Potassium [Moles/Vol] 4.6 mmol/L Normal 3.5-5.1 [facility] Comment on above: Order Comment: TSH W ITH REFLEX TO FT4 IF ABNORMAL. Performed By: #### L 3300.1500, L3300.1000, L509.6000, L3100.5170, L100.0100, L500.4050, L501.9520, L3100.5125 #### [facility] [address] [place], [address] Sodium [Moles/Vol] 137 mmol/L Normal 136-145 [facility] Comment on above: Order Comment: TSH W ITH REFLEX TO FT4 IF ABNORMAL. Performed By: #### L 3300.1500, L3300.1000, L509.6000, L3100.5170, L100.0100, L500.4050, L501.9520, L3100.5125 #### [facility] [address] [place], [place], [id number] T PROT 7.2 g/dL Normal 6.4-8.2 [facility] Comment on above: Order Comment: TSH W ITH REFLEX TO FT4 IF ABNORMAL. Performed By: #### L 3300.1500, L3300.1000, L509.6000, L3100.5170, L100.0100, L500.4050, L501.9520, L3100.5125 #### [facility] [address] [place], [place], [id number] Urea nitrogen [Mass/Vol] 21 mg/dL High 7-18 [facility] Comment on above: Order Comment: TSH W ITH REFLEX TO FT4 IF ABNORMAL. Performed By: #### L 3300.1500, L3300.1000, L509.6000, L3100.5170, L100.0100, L500.4050, L501.9520, L3100.5125 #### [facility] [address] [place], [place], [id number] Follicle Stimulating Hormone on 04-05-2024 FSH 1.3 mIU/mL Normal [facility] Comment on above: Order Comment: TSH W ITH REFLEX TO FT4 IF ABNORMAL. Result Comment: NORMAL REFERENCE RANGES FEMALE FOLLICULAR 2.3 - 12.6 mIU/mL MID-CYCLE PEAK 5.2 - 17.5 mIU/mL LUTEAL 1.7 - 12.9 mIU/mL POST-MENOPAUSAL ON MHT 5.9 - 72.8 mIU/mL NOT ON MHT 12.7 - 132.2 mlU/mL MALE 0.7 - 10.8 mIU/mL Performed By: #### L 3300.1500, L3300.1000, L509.6000, L3100.5170, L100.0100, L500.4050, L501.9520, L3100.5125 #### [facility] [address] [place], [address] Luteinizing Hormoneon 2023 LH 4.1 mIU/mL Normal [facility] Comment on above: Order Comment: TSH W ITH REFLEX TO FT4 IF ABNORMAL. Result Comment: NORMAL REFERENCE RANGES FEMALE FOLLICULAR 1.9 - 26.2 mIU/mL MID-CYCLE PEAK 22.8 - 76.1 mIU/mL LUTEAL 0.6 - 16.6 mIU/mL POST-MENOPAUSAL ON MHT 1.1 - 52.4 mIU/mL NOT ON MHT 8.6 - 61.8 mIU/mL MALE 1.2 - 10.6 mIU/mL Performed By: #### L 3300.1500, L3300.1000, L509.6000, L3100.5170, L100.0100, L500.4050, L501.9520, L3100.5125 #### [facility] [address] [place], [address] Thyroid Stim Hormone (TSH)on 04-05-2024 TSH 2.650 uIU/mL Normal 0.358-3.74 0 [facility] Comment on above: Order Comment: TSH W ITH REFLEX TO FT4 IF ABNORMAL. Performed By: #### L 3300.1500, L3300.1000, L509.6000, L3100.5170, L100.0100, L500.4050, L501.9520, L3100.5125 #### [facility] [address] [place], [address] Serum or plasma thyroid stim ulating hormone (TSH) measurement (units/volume)Ordered By: Niraj Carlson on 11-22-2023 TSH Qn 0.91 uIU/mL 0.358-3.74 [facility] T4 Free Directon 11-22-2023 T4 FREE DIRECT 1.12 ng/dL Normal 0.76-1.46 [facility] Comment on above: Performed By: #### L 3300.1500, L3300.1000, L509.6000, L3100.5170, L100.0100, L500.4050, L501.9520, L3100.5125 #### [facility] [address] [place], [place], [address] Thin prep Papanicolaou smear with manual screeningOrdered By: Niraj Carlson on 11-22-2023 Thin prep Papanicolaou smear with manual screening 1.12 ng/dL 0.76-1.46 [facility] Thyroid Stim Hormone (TSH)on 11-22-2023 TSH 0.91 uIU/mL Normal 0.358-3.74 [facility] Comment on above: Performed By: #### L 501.9520, L506.0400 #### [facility] [address] [place], [place], [id number] Absolute lymphocyte countOrd ered By: Niraj Carlson on 09-05-2023 Lymphocytes Auto (Unsp spec) [#/Vol] 1.57 10*3/uL 0.83-4.51 [facility] Automated lymphocyte count a s percentage of total leukocytesOrdered By: Niraj Carlson on 09-05-2023 Lymphocytes/100 WBC Auto (Unsp spec) 23.8 % 19-41 [facility] Basophil percentageOrdered B y: Niraj Carlson on 09-05-2023 Basophils/100 WBC (Bld) 0.8 % 0-1 [facility] Eosinophils/100 WBC (Bld) 1.4 % 0-5 [facility] Hemoglobin (Bld) [Mass/Vol] 12.4 g/dL 12.0-15.0 [facility] Monocytes/100 WBC (Bld) 5.6 % 0-10 [facility] Neutrophils (Bld) [#/Vol] 4.5 10*3/uL 2.0-7.7 [facility] Neutrophils/100 WBC (Bld) 68.1 % 47-70 [facility] WBC (Bld) [#/Vol] 6.6 10*3/uL 4.4-11.0 [facility] Bilirubin [Mass/Vol] 0.30 mg/dL 0.20-1.00 [facility] Comment on above: For patients on eltr ombopag therapy, use of Dimension [place] TBIL is not recommended. Chloride [Moles/Vol] 109 mmol/L 98-107 [facility] Cholesterol [Mass/Vol] 186 mg/dL <200 [facility] Comment on above: <200 mg/dL Desirable 200-240 mg/dL Borderline >240 mg/dL High Risk Glucose [Mass/Vol] 84 mg/dL 74-106 [facility] Potassium [Moles/Vol] 4.1 mmol/L 3.5-5.1 [facility] Protein [Mass/Vol] 7.7 g/dL 6.4-8.2 [facility] Sodium [Moles/Vol] 139 mmol/L 136-145 [facility] Testosterone [Mass/Vol] ng/dL 8-60 [facility] Triglyceride [Mass/Vol] 103 mg/dL <199 [facility] Comment on above: The drugs N-Acetylcy steine and Metamizole may falsely depress this assay.Serum Triglycerides Reference Interval Normal <150 mg/dL Borderline high 150 - 199 mg/dL High 200 - 499 mg/dL Very High > or = 500 mg/dL Determination of erythrocyte mean corpuscular volume (MCV)Ordered By: Niraj Carlson on 09-05-2023 MCV (RBC) [Entitic vol] 88.9 fL 81-99 [facility] Erythrocyte distribution wid th ratioOrdered By: Niraj Carlson on 09-05-2023 Erythrocyte distribution width (RBC) [Ratio] 12.3 % 11.6-14.6 [facility] Erythrocyte distribution wid th standard deviationOrdered By: Niraj Carlson on 09-05-2023 Erythrocyte distribution width (RBC) [Entitic vol] 40.1 fL 35.1-43.9 [facility] Free testosterone percentage Ordered By: Niraj Carlson on 09-05-2023 Testosterone Free/Testosterone.total [Mass fraction] 1.40 % 0.50-2.80 [facility] Hematocrit Auto (Bld) [Volum e fraction]Ordered By: Niraj Carlson on 09-05-2023 Hematocrit (Bld) [Volume fraction] 39.3 % 37-47 [facility] Immature granulocytes/100 WB C Auto (Bld)Ordered By: Niraj Carlson on 09-05-2023 Immature granulocytes/100 WBC (Bld) 0.300 % 0.0-0.9 [facility] Comment on above: IG% - Immature Granu locytes (promyelocytes, myelocytes and metamyelocytes) > 1% indicates that a LEFT SHIFT is Present. Laboratory - Chemistry and C hemistry - challengeOrdered By: Niraj Carlson on 09-05-2023 Albumin/Globulin [Mass ratio] 1.0 {ratio} 0.9-2.4 [facility] ALP [Catalytic activity/Vol] 92 U/L 45-117 [facility] ALT [Catalytic activity/Vol] 23 U/L 13-56 [facility] Cholesterol in HDL (Body fld) [Mass/Vol] 49 mg/dL >40 [facility] Comment on above: The drugs N-Acetylcy steine and Metamizole may falsely depress this assay. Reference Range HDL <40 mg/dL Low HDL Cholesterol HDL >or= 60 mg/dL High HDL Cholesterol Cholesterol in LDL (Body fld) [Moles/Vol] 116 mg/dL 0-130 [facility] Cholesterol in VLDL Calc [Moles/Vol] 21 mg/dL 5-40 [facility] CO2 [Moles/Vol] 26.0 mmol/L 21.0-32.0 [facility] Globulin (S) [Mass/Vol] 3.8 g/dL 2.2-4.2 [facility] Urea nitrogen/Creatinine [Mass ratio] 22.9 mg/mg 10-20 [facility] Laboratory - Hematology and Cell countsOrdered By: Niraj Carlson on 09-05-2023 MCH (RBC) [Entitic mass] 28.1 pg 27.0-32.0 [facility] MCHC (RBC) [Mass/Vol] 31.6 g/dL 32-36 [facility] Nucleated RBC/100 WBC (Bld) [Ratio] 0 % 0-5 [facility] Platelets (Bld) [#/Vol] 232 10*3/uL 150-450 [facility] No Panel InformationOrdered By: Niraj Carlson on 09-05-2023 Adrenocorticotropic Hormone 29.5 pg/mL 7.2-63.3 [facility] Comment on above: ACTH reference inter rosaline for samples collected between 7 and10 AM.Performed at: - [facility] [id number] Director: Willian Mahajan PhD, Phone: [phone] at: [facility] [id number] Director: Elisha Damon MD, Phone: [phone] Dehydroepiandrosterone Sulfate 70.1 ug/dL 57.3-279.2 [facility] Estimated GFR (MDRD) Amer 83 mL/min >60 [facility] Comment on above: GFR Calc Estimated GFR (MDRD) Non-Af Amer 68 mL/min >60 [facility] Comment on above: Non- GFR Calc Follicle Stimulating Hormone 6.9 mIU/mL [facility] Comment on above: NORMAL REFERENCE RAN GES FEMALE FOLLICULAR 2.3 - 12.6 mIU/mL MID-CYCLE PEAK 5.2 - 17.5 mIU/mL LUTEAL 1.7 - 12.9 mIU/mL POST-MENOPAUSAL ON MHT 5.9 - 72.8 mIU/mL NOT ON MHT 12.7 - 132.2 mlU/mL MALE 0.7 - 10.8 mIU/mL Luteinizing Hormone 6.2 mIU/mL [facility] Comment on above: NORMAL REFERENCE RAN GES FEMALE FOLLICULAR 1.9 - 26.2 mIU/mL MID-CYCLE PEAK 22.8 - 76.1 mIU/mL LUTEAL 0.6 - 16.6 mIU/mL POST-MENOPAUSAL ON MHT 1.1 - 52.4 mIU/mL NOT ON MHT 8.6 - 61.8 mIU/mL MALE 1.2 - 10.6 mIU/mL Platelet mean volume Mykel-Ec ker (Bld) [Entitic vol]Ordered By: Niraj Carlson on 09-05-2023 Platelet mean volume (Bld) [Entitic vol] 9.7 fL 6.2-12.0 [facility] RBC Auto (Bld) [#/Vol]Ordere d By: Niraj Carlson on 09-05-2023 RBC (Bld) [#/Vol] 4.42 10*6/uL 4.2-5.4 [facility] Serum or plasma calcium lesa urement (mass/volume)Ordered By: Niraj Carlson on 09-05-2023 Calcium [Mass/Vol] 8.8 mg/dL 8.5-10.1 [facility] Serum or plasma cortisol antonia surement (mass/volume)Ordered By: Niraj Carlson on 09-05-2023 Cortisol [Mass/Vol] 19.20 ug/dL 3.44-22.45 [facility] Comment on above: Adult (AM) 5.27 - 22 .45 ug/dL Adult (PM) 3.44 - 16.76 ug/dLPlease note revised CORTISOL reference range effective 2019. Serum or plasma creatinine m easurement (mass/volume)Ordered By: Niraj Carlson on 09-05-2023 Creatinine [Mass/Vol] 0.96 mg/dL 0.55-1.02 [facility] Comment on above: The validity of the calculated GFR & GFRAA in patients over 70 years has not been determined. Clinical correlation is essential. Serum or plasma testosterone free measurement (mass/volume)Ordered By: Niraj Carlson on 09-05-2023 Testosterone Free [Mass/Vol] < 0.04 ng/dL 0.10-0.85 [facility] Serum or plasma thyroid stim ulating hormone (TSH) measurement (units/volume)Ordered By: Niraj Carlson on 09-05-2023 TSH Qn 4.65 uIU/mL 0.358-3.74 [facility] Serum or plasma urea nitroge n measurement (mass/volume)Ordered By: Niraj Carlson on 09-05-2023 Urea nitrogen [Mass/Vol] 22 mg/dL 7-18 [facility] Thin prep Papanicolaou smear with manual screeningOrdered By: Niraj Carlson on 09-05-2023 Thin prep Papanicolaou smear with manual screening 3.9 g/dL 3.2-5.0 [facility] Thin prep Papanicolaou smear with manual screening 15 U/L 15-37 [facility] Thin prep Papanicolaou smear with manual screening 4 5-15 [facility] Thin prep Papanicolaou smear with manual screening 0.97 ng/dL 0.76-1.46 [facility] Whole blood hemoglobin A1c/t otal hemoglobin ratio (mass fraction)Ordered By: Niraj Carlson on 09-05-2023 HbA1c (Bld) [Mass fraction] 5.2 % 3.8-5.6 [facility] Comment on above: Normal < 5.7 % Predi abetic 5.7 - 6.4 % Diabetic >or= 6.5 % Please note range changes. No Panel InformationOrdered By: Cosme Joaquin on 05-18-2023 Thyroid Stimulating Hormone (TSH) 1.12 uIU/mL 0.358-3.74 [facility] Absolute lymphocyte countOrd ered By: Cosme Joaquin on 03-11-2023 Lymphocytes Auto (Unsp spec) [#/Vol] 1.68 10*3/uL 0.83-4.51 [facility] Basophil percentageOrdered B y: Cosme Joaquin on 03-11-2023 Basophils/100 WBC (Bld) 0.7 % 0-1 [facility] Bilirubin [Mass/Vol] 0.40 mg/dL 0.20-1.00 [facility] Comment on above: For patients on eltr ombopag therapy, use of Dimension [place] TBIL is not recommended. Chloride [Moles/Vol] 107 mmol/L 98-107 [facility] Cholesterol [Mass/Vol] 199 mg/dL <200 [facility] Comment on above: <200 mg/dL Desirable 200-240 mg/dL Borderline >240 mg/dL High Risk Eosinophils/100 WBC (Bld) 0.5 % 0-5 [facility] Glucose [Mass/Vol] 83 mg/dL 74-106 [facility] Neutrophils (Bld) [#/Vol] 3.9 10*3/uL 2.0-7.7 [facility] Neutrophils/100 WBC (Bld) 63.7 % 47-70 [facility] Potassium [Moles/Vol] 3.8 mmol/L 3.5-5.1 [facility] Protein [Mass/Vol] 7.4 g/dL 6.4-8.2 [facility] Sodium [Moles/Vol] 139 mmol/L 136-145 [facility] Triglyceride [Mass/Vol] 132 mg/dL <199 [facility] Comment on above: The drugs N-Acetylcy steine and Metamizole may falsely depress this assay.Serum Triglycerides Reference Interval Normal <150 mg/dL Borderline high 150 - 199 mg/dL High 200 - 499 mg/dL Very High > or = 500 mg/dL WBC (Bld) [#/Vol] 6.1 10*3/uL 4.4-11.0 [facility] Blood erythrocytes count (nu mber/volume)Ordered By: Cosme Joaquin on 03-11-2023 RBC (Bld) [#/Vol] 4.54 10*6/uL 4.2-5.4 [facility] Blood hemoglobin measurement (mass/volume)Ordered By: oCsme Joaquin on 03-11-2023 Hemoglobin (Bld) [Mass/Vol] 14.0 g/dL 12.0-15.0 [facility] Blood lymphocytes/100 leukoc ytesOrdered By: Cosme Joaquin on 03-11-2023 Lymphocytes/100 WBC (Bld) 27.7 % 19-41 [facility] Blood monocytes/100 leukocyt esOrdered By: Cosme Joaquin on 03-11-2023 Monocytes/100 WBC (Bld) 7.1 % 0-10 [facility] Blood platelet mean volumeOr dered By: Cosme Joaquin on 03-11-2023 Platelet mean volume (Bld) [Entitic vol] 9.6 fL 6.2-12.0 [facility] Determination of erythrocyte mean corpuscular volume (MCV)Ordered By: Cosme Joaquin on 03-11-2023 MCV (RBC) [Entitic vol] 89.4 fL 81-99 [facility] Hematocrit Auto (Bld) [Volum e fraction]Ordered By: Cosme Joaquin on 03-11-2023 Hematocrit (Bld) [Volume fraction] 40.6 % 37-47 [facility] Iron measurement (mass/mass) Ordered By: Cosme Joaquin on 03-11-2023 Iron (Unsp spec) [Mass/Mass] 104 ug/dL 50-170 [facility] Laboratory - Chemistry and C hemistry - challengeOrdered By: Cosme Joaquin on 03-11-2023 ALP [Catalytic activity/Vol] 105 U/L 45-117 [facility] ALT [Catalytic activity/Vol] 22 U/L 13-56 [facility] CO2 [Moles/Vol] 25.0 mmol/L 21.0-32.0 [facility] Cobalamin (Vitamin B12) [Mass/Vol] 466 pg/mL 211-911 [facility] Globulin (S) [Mass/Vol] 3.5 g/dL 2.2-4.2 [facility] Urea nitrogen/Creatinine [Mass ratio] 10.8 mg/mg 10-20 [facility] Laboratory - Hematology and Cell countsOrdered By: Cosme Joaquin on 03-11-2023 Erythrocyte distribution width (RBC) [Entitic vol] 41.2 fL 35.1-43.9 [facility] Erythrocyte distribution width (RBC) [Ratio] 12.7 % 11.6-14.6 [facility] Immature granulocytes/100 WBC (Bld) 0.300 % 0.0-0.9 [facility] Comment on above: IG% - Immature Granu locytes (promyelocytes, myelocytes and metamyelocytes) > 1% indicates that a LEFT SHIFT is Present. MCH (RBC) [Entitic mass] 30.8 pg 27.0-32.0 [facility] Nucleated RBC/100 WBC (Bld) [Ratio] 0 % 0-5 [facility] MCHC Auto (RBC) [Mass/Vol]Or dered By: Cosme Joaquin on 03-11-2023 MCHC (RBC) [Mass/Vol] 34.5 g/dL 32-36 [facility] No Panel InformationOrdered By: Cosme Joaquin on 03-11-2023 Estimated GFR (MDRD) Amer 70 mL/min >60 [facility] Comment on above: GFR Calc Estimated GFR (MDRD) Non-Af Amer 58 mL/min >60 [facility] Comment on above: Non- GFR Calc Thyroid Stimulating Hormone (TSH) 7.32 uIU/mL 0.358-3.74 [facility] Total Iron Binding Capacity 398 ug/dL 250-450 [facility] Vitamin D 25-Hydroxy 104.9 ng/mL [facility] Comment on above: Vitamin D 25(OH) Sta tus Range Deficiency <20 ng/mL (50nmol/L) Insufficiency 20 - 30 ng/mL (50 - 75 nmol/L) Sufficiency 30 - 100 ng/mL (75 - 250 nmol/L) Toxicity >100 ng/mL (>250 nmol/L)Evidence suggests that patients undergoing fluorescein dye angiography can retain small amounts of fluorescein in the body for up to 48 to 72 hours post-treatment. In the cases of patients with renal insufficiency, retention could be much longer. Samples containing fluorescein can produce falsely elevated values when tested with the Advia Centaur Vitamin D assay. With fluorescein interference, observed Vitamin D values can be as high as >150 ng/mL (>375 nmol/L). Samples should be resubmitted post fluorescein clearance to ensure there is no interference with Vitamin D test results. Platelets bldOrdered By: Tammy Joaquin on 03-11-2023 Platelets (Bld) [#/Vol] 199 10*3/uL 150-450 [facility] Serum or plasma albumin lesa urement (mass/volume)Ordered By: Cosme Joaquin on 03-11-2023 Albumin [Mass/Vol] 3.9 g/dL 3.2-5.0 [facility] Serum or plasma albumin/glob ulin mass ratioOrdered By: Cosme Joaquin on 03-11-2023 Albumin/Globulin [Mass ratio] 1.1 {ratio} 0.9-2.4 [facility] Serum or plasma calcium lesa urement (mass/volume)Ordered By: Cosme Joaquin on 03-11-2023 Calcium [Mass/Vol] 8.8 mg/dL 8.5-10.1 [facility] Serum or plasma cholesterol in HDL measurement (mass/volume)Ordered By: Cosme Joaquin on 03-11-2023 Cholesterol in HDL [Mass/Vol] 46 mg/dL >40 [facility] Comment on above: The drugs N-Acetylcy steine and Metamizole may falsely depress this assay. Reference Range HDL <40 mg/dL Low HDL Cholesterol HDL >or= 60 mg/dL High HDL Cholesterol Serum or plasma cholesterol in VLDL measurement (mass/volume)Ordered By: Cosme Joaquin on 03-11-2023 Cholesterol in VLDL [Mass/Vol] 26 mg/dL 5-40 [facility] Serum or plasma creatinine m easurement (mass/volume)Ordered By: Cosme Joaquin on 03-11-2023 Creatinine [Mass/Vol] 1.11 mg/dL 0.55-1.02 [facility] Comment on above: The validity of the calculated GFR & GFRAA in patients over 70 years has not been determined. Clinical correlation is essential. Serum or plasma ferritin antonia surement (mass/volume)Ordered By: Cosme Joaquin on 03-11-2023 Ferritin [Mass/Vol] 13 ng/mL 8-252 [facility] Serum or plasma iron saturat ion measurement (mass fraction)Ordered By: Cosme Joaquin on 03-11-2023 Iron saturation [Mass fraction] 26.1 % 15.0-55.0 [facility] Serum or plasma low density lipoprotein (LDL) cholesterol measurement (mass/volume)Ordered By: Cosme Joqauin on 03-11-2023 Cholesterol in LDL [Mass/Vol] 127 mg/dL 0-130 [facility] Serum or plasma urea nitroge n measurement (mass/volume)Ordered By: Cosme Joaquin on 03-11-2023 Urea nitrogen [Mass/Vol] 12 mg/dL 7-18 [facility] Thin prep Papanicolaou smear with manual screeningOrdered By: Cosme Joaquin on 03-11-2023 Thin prep Papanicolaou smear with manual screening 15 U/L 15-37 [facility] Thin prep Papanicolaou smear with manual screening 7 5-15 [facility] Absolute lymphocyte countOrd ered By: Dr. Joaquin on 12-15-2022 Lymphocytes Auto (Unsp spec) [#/Vol] 1.95 10*3/uL 0.83-4.51 [facility] Basophil percentageOrdered B y: Dr. Joaquin on 12-15-2022 Basophils/100 WBC (Bld) 0.4 % 0-1 [facility] Bilirubin [Mass/Vol] 0.30 mg/dL 0.20-1.00 [facility] Comment on above: For patients on eltr ombopag therapy, use of Dimension [place] TBIL is not recommended. Chloride [Moles/Vol] 103 mmol/L 98-107 [facility] Cholesterol [Mass/Vol] 179 mg/dL <200 [facility] Comment on above: <200 mg/dL Desirable 200-240 mg/dL Borderline >240 mg/dL High Risk Eosinophils/100 WBC (Bld) 0.7 % 0-5 [facility] Glucose [Mass/Vol] 73 mg/dL 74-106 [facility] Neutrophils (Bld) [#/Vol] 4.9 10*3/uL 2.0-7.7 [facility] Neutrophils/100 WBC (Bld) 65.4 % 47-70 [facility] Potassium [Moles/Vol] 4.0 mmol/L 3.5-5.1 [facility] Protein [Mass/Vol] 7.4 g/dL 6.4-8.2 [facility] Sodium [Moles/Vol] 137 mmol/L 136-145 [facility] Triglyceride [Mass/Vol] 191 mg/dL <199 [facility] Comment on above: The drugs N-Acetylcy steine and Metamizole may falsely depress this assay.Serum Triglycerides Reference Interval Normal <150 mg/dL Borderline high 150 - 199 mg/dL High 200 - 499 mg/dL Very High > or = 500 mg/dL WBC (Bld) [#/Vol] 7.5 10*3/uL 4.4-11.0 [facility] Blood erythrocytes count (nu mber/volume)Ordered By: Dr. Joaquin on 12-15-2022 RBC (Bld) [#/Vol] 4.47 10*6/uL 4.2-5.4 [facility] Blood hemoglobin measurement (mass/volume)Ordered By: Dr. Joaquin on 12-15-2022 Hemoglobin (Bld) [Mass/Vol] 12.8 g/dL 12.0-15.0 [facility] Blood lymphocytes/100 leukoc ytesOrdered By: Dr. Joaquin on 12-15-2022 Lymphocytes/100 WBC (Bld) 26.2 % 19-41 [facility] Blood monocytes/100 leukocyt esOrdered By: Dr. Joaquin on 12-15-2022 Monocytes/100 WBC (Bld) 7.0 % 0-10 [facility] Blood platelet mean volumeOr dered By: Dr. Joaquin on 12-15-2022 Platelet mean volume (Bld) [Entitic vol] 9.2 fL 6.2-12.0 [facility] Determination of erythrocyte mean corpuscular volume (MCV)Ordered By: Dr. Joaquin on 12-15-2022 MCV (RBC) [Entitic vol] 87.5 fL 81-99 [facility] Hematocrit Auto (Bld) [Volum e fraction]Ordered By: Dr. Joaquin on 12-15-2022 Hematocrit (Bld) [Volume fraction] 39.1 % 37-47 [facility] Iron measurement (mass/mass) Ordered By: Dr. Joaquin on 12-15-2022 Iron (Unsp spec) [Mass/Mass] 78 ug/dL 50-170 [facility] Laboratory - Chemistry and C hemistry - challengeOrdered By: Dr. Joaquin on 12-15-2022 ALP [Catalytic activity/Vol] 103 U/L 45-117 [facility] ALT [Catalytic activity/Vol] 22 U/L 13-56 [facility] CO2 [Moles/Vol] 24.0 mmol/L 21.0-32.0 [facility] Cobalamin (Vitamin B12) [Mass/Vol] 332 pg/mL 211-911 [facility] Globulin (S) [Mass/Vol] 3.9 g/dL 2.2-4.2 [facility] Urea nitrogen/Creatinine [Mass ratio] 12.1 mg/mg 10-20 [facility] Laboratory - Hematology and Cell countsOrdered By: Dr. Joaquin on 12-15-2022 Erythrocyte distribution width (RBC) [Entitic vol] 45.6 fL 35.1-43.9 [facility] Erythrocyte distribution width (RBC) [Ratio] 14.1 % 11.6-14.6 [facility] Immature granulocytes/100 WBC (Bld) 0.300 % 0.0-0.9 [facility] Comment on above: IG% - Immature Granu locytes (promyelocytes, myelocytes and metamyelocytes) > 1% indicates that a LEFT SHIFT is Present. MCH (RBC) [Entitic mass] 28.6 pg 27.0-32.0 [facility] Nucleated RBC/100 WBC (Bld) [Ratio] 0 % 0-5 [facility] Auto (RBC) [Mass/Vol]Or dered By: Dr. Joaquin on 12-15-2022 MCHC (RBC) [Mass/Vol] 32.7 g/dL 32-36 [facility] No Panel InformationOrdered By: Dr. Joaquin on 12-15-2022 Estimated GFR (MDRD) Amer 89 mL/min >60 [facility] Comment on above: GFR Calc Estimated GFR (MDRD) Non-Af Amer 73 mL/min >60 [facility] Comment on above: Non- GFR Calc Thyroid Stimulating Hormone (TSH) 1.72 uIU/mL 0.358-3.74 [facility] Total Iron Binding Capacity 411 ug/dL 250-450 [facility] Vitamin D 25-Hydroxy 114.7 ng/mL [facility] Comment on above: Vitamin D 25(OH) Sta tus Range Deficiency <20 ng/mL (50nmol/L) Insufficiency 20 - 30 ng/mL (50 - 75 nmol/L) Sufficiency 30 - 100 ng/mL (75 - 250 nmol/L) Toxicity >100 ng/mL (>250 nmol/L)Evidence suggests that patients undergoing fluorescein dye angiography can retain small amounts of fluorescein in the body for up to 48 to 72 hours post-treatment. In the cases of patients with renal insufficiency, retention could be much longer. Samples containing fluorescein can produce falsely elevated values when tested with the [employer] Cent[employer] Vitamin D assay. With fluorescein interference, observed Vitamin D values can be as high as >150 ng/mL (>375 nmol/L). Samples should be resubmitted post fluorescein clearance to ensure there is no interference with Vitamin D test results. Platelets bldOrdered By: Dr. Joaquin on 12-15-2022 Platelets (Bld) [#/Vol] 223 10*3/uL 150-450 [facility] Serum or plasma albumin lesa urement (mass/volume)Ordered By: Dr. Joaquin on 12-15-2022 Albumin [Mass/Vol] 3.5 g/dL 3.2-5.0 [facility] Serum or plasma albumin/glob ulin mass ratioOrdered By: Dr. Joaquin on 12-15-2022 Albumin/Globulin [Mass ratio] 0.9 {ratio} 0.9-2.4 [facility] Serum or plasma calcium lesa urement (mass/volume)Ordered By: Dr. Joaquin on 12-15-2022 Calcium [Mass/Vol] 8.4 mg/dL 8.5-10.1 [facility] Serum or plasma cholesterol in HDL measurement (mass/volume)Ordered By: Dr. Joaquin on 12-15-2022 Cholesterol in HDL [Mass/Vol] 35 mg/dL >40 [facility] Comment on above: The drugs N-Acetylcy steine and Metamizole may falsely depress this assay. Reference Range HDL <40 mg/dL Low HDL Cholesterol HDL >or= 60 mg/dL High HDL Cholesterol Serum or plasma cholesterol in VLDL measurement (mass/volume)Ordered By: Dr. Joaquin on 12-15-2022 Cholesterol in VLDL [Mass/Vol] 38 mg/dL 5-40 [facility] Serum or plasma creatinine m easurement (mass/volume)Ordered By: Dr. Joaquin on 12-15-2022 Creatinine [Mass/Vol] 0.91 mg/dL 0.55-1.02 [facility] Comment on above: The validity of the calculated GFR & GFRAA in patients over 70 years has not been determined. Clinical correlation is essential. Serum or plasma ferritin antonia surement (mass/volume)Ordered By: Dr. Joaquin on 12-15-2022 Ferritin [Mass/Vol] 17 ng/mL 8-252 [facility] Serum or plasma iron saturat ion measurement (mass fraction)Ordered By: Dr. Joaquin on 12-15-2022 Iron saturation [Mass fraction] 19.0 % 15.0-55.0 [facility] Serum or plasma low density lipoprotein (LDL) cholesterol measurement (mass/volume)Ordered By: Dr. Joaquin on 12-15-2022 Cholesterol in LDL [Mass/Vol] 106 mg/dL 0-130 [facility] Serum or plasma urea nitroge n measurement (mass/volume)Ordered By: Dr. Joaquin on 12-15-2022 Urea nitrogen [Mass/Vol] 11 mg/dL 7-18 [facility] Thin prep Papanicolaou smear with manual screeningOrdered By: Dr. Joaquin on 12-15-2022 Thin prep Papanicolaou smear with manual screening 16 U/L 15-37 [facility] Thin prep Papanicolaou smear with manual screening 10 5-15 [facility] Laboratory - Chemistry and C hemistry - challengeOrdered By: Dr. Stewart on 12-01-2022 HCG ( test) Ql (U) Negative [facility] Comment on above: Very dilute urine sp ecimens, as indicated by a low specificgravity, may not contain footwear sales representative levels of hCG. If is still suspected, a first morning urinespecimen should be collected 48 hours later and tested. Laboratory - Chemistry and C hemistry - challengeOrdered By: Dr. Stewart on 10-29-2022 HCG ( test) Ql (U) Negative [facility] Comment on above: Very dilute urine sp ecimens, as indicated by a low specificgravity, may not contain footwear sales representative levels of hCG. If is still suspected, a first morning urinespecimen should be collected 48 hours later and tested. Blood Pressure Cuff Sizeon 0 09-27-2022 Fall risk assessment a) No falls within the last year [facility] Work Phone: Tobacco use status [facility] b) No [facility] Work Phone: Blood Pressure Cuff Size Adult [facility] Work Phone: Blood Pressure Cuff Size Yes [facility] Work Phone: Office Visit (Internal Medic ine)on 09-27-2022 Follow-up visit Diagnoses/Problems Assessed Neck pain (723.1) (M54.2) Anxiety and depression (300.00,311) (F41.9,F32.A) Migraine (346.90) (G43.909) Orders Neck pain Start: Cyclobenzaprine HCl - 10 MG Oral Tablet; TAKE 1 TABLET 3 TIMES DAILY NEEDED Rx By: Cosme Joaquin; Dispense: 30 Days ; #:1 X 90 Tablet Bottle; Refill: 1;For: Neck pain; URBANO = N; Verified Transmission to [facility]; Last Updated By: Sandra aBh; 09/27/2022 11:33:14 AM Provider Impressions 1. Anxiety and depression, improved - continue Effexor to 225mg po daily - continue Wellbutrin in the AM - continue BuSpar can increase to 30mg po bid 2. Hypothyroidism, hx of thyroid nodules - repeat tsh 2.38 - continue current dose of Synthroid 3. Migraines - continue Imitrex prn Chief Complaint 37 y/o female presents for 3 month f/u Denies needing medication RF's Denies new complaints Pt happy with med therapy History of Present IllnessPatient is here today for 3 mo follow up Patient reports that she has had a fw episodes of anxiety but nothing like it was. Overall she feels well on this current dosage and feels content. Review of Systems Constitutional: no fever, no chills and not feeling poorly. ENT: no nasal discharge and no sore throat. Cardiovascular: no chest pain and no palpitations. Respiratory: no cough and not coughing up sputum. Active Problems Problems Anxiety and depression (300.00,311) (F41.9,F32.A) BMI 31.0-31.9,adult (V85.31) (Z68.31) Class 1 obesity with body mass index (BMI) of 31.0 to 31.9 in adult (278.00,V85.31) (E66.9,Z68.31) Fatigue (780.79) (R53.83) Iron deficiency (280.9) (E61.1) Migraine (346.90) (G43.909) Multinodular thyroid (241.1) (E04.2) On Accutane therapy (V58.69) (Z79.899) Screening for diabetes mellitus (V77.1) (Z13.1) Screening for lipid disorders (V77.91) (Z13.220) Screening for malignant neoplasm of breast (V76.10) (Z12.39) Tension headache (307.81) (G44.209) Thyroid disease (246.9) (E07.9) Thyroid pain (246.8) (E07.89) Vitamin D deficiency (268.9) (E55.9) Past Medical History Problems History of thyroid nodule (V12.29) (Z86.39) Family History Other Family history of Chronic mental illness Family history of diabetes mellitus (V18.0) (Z83.3) Family history of fibromyalgia (V17.89) (Z82.69) Family history of hyperlipidemia (V18.19) (Z83.438) Social History Problems Daily caffeine consumption, 2-3 servings a day No illicit drug use Non-smoker (V49.89) (Z78.9) Social alcohol use (V49.89) (Z78.9) Allergies Medication Penicillins Hives;; Recorded By: Geovanni Hannah; 10/02/2019 8:18:28 AM Additional reactions - Breathing ability Codeine Abdominal pain; Nausea; Recorded By: Geovanni Hannah; 10/02/2019 8:18:28 AM Current Meds Medication NameInstruction buPROPion HCl ER (XL) 300 MG Oral Tablet Extended Release 24 HourTAKE ONE TABLET BY MOUTH EVERY DAY busPIRone HCl - 30 MG Oral TabletTAKE 1 TABLET BY MOUTH TWICE DAILY Levothyroxine Sodium 137 MCG Oral TabletTAKE 1 TABLET BY MOUTH EVERY DAY DIRECTED Loestrin 1.5/30 (21) 1.5-30 MG-MCG Oral Tablettake 1 tablet by mouth once daily for 21 DAYS, THEN DO NOT TAKE ANY TABS FOR 7 DAYS. SUMAtriptan Succinate 25 MG Oral TabletTAKE ONE TABLET BY MOUTH AT ONSET OF HEADACHE; MAY REPEAT ONE TABLET IN 2 HOURS IF NEEDED. MAX OF 2 PER DAY. Venlafaxine HCl ER 225 MG Oral Tablet Extended Release 24 HourTake 1 tab po daily Vitamin D (Ergocalciferol) 1.25 MG (44471 UT) Oral Capsuletake 1 capsule by mouth every week Vitals Vital Signs Recorded: [id number] 11:24AM Heart Rate82 Fzofwkva384 Kwpdpcxuf33 Blood Pressure Cuff SizeAdult Height5 ft 10 in Oegzvi310 lb BMI Qunolbkmoa20 kg/m2 BSA Calculated2.19 Tobacco Useb) No PHQ-2 Patient Declined/Screening not indicatedYes Falls Screening (Age 18+)a) No falls within the last year Physical Exam Constitutional General appearance: Alert and in no acute distress. Eyes Inspection of eyes: Sclera and conjunctiva were normal. Pupil exam: Pupils were equal in size. Extraocular movements were intact. Psychiatric Orientation: Oriented to person, place, and time. Mood and affect: Normal. Signatures Electronically signed by : Cosme Joaquin DO; Sep 27 2022 11:35AM EST (Author) Normal [facility] - Chemistry and C hemistry - challengeOrdered By: Dr. Stewart on 09-23-2022 HCG ( test) Ql (U) Negative [facility] Comment on above: Very dilute urine sp ecimens, as indicated by a low specificgravity, may not contain footwear sales representative levels of hCG. If is still suspected, a first morning urinespecimen should be collected 48 hours later and tested. Laboratory - Chemistry and C hemistry - challengeOrdered By: Dr. Stewart on 08-26-2022 Free T4 [Mass/Vol] 0.96 ng/dL 0.76-1.46 [facility] No Panel InformationOrdered By: Dr. Stewart on 08-26-2022 Thyroid Stimulating Hormone (TSH) 2.38 uIU/mL 0.358-3.74 [facility] Serum or plasma choriogonado tropin detectionOrdered By: Dr. Stewart on 08-26-2022 HCG ( test) Ql < 1 mIU/mL <4 [facility] Comment on above: hCG levels with Gest ational AgeGestational Age hCG mIU/mL (IU/L)0.2 - 1 week 5 - 501-2 weeks 50 - 5002-3 weeks 100 - 70787-8 weeks 500 - 083138-3 weeks 1000 - 606567-0 weeks 94206 - 100,0006-8 weeks 27813 - 200,0002-3 months 07052 - 100,000 CNOVon 08-02-2022 CNOV Office Visit ([facility] ) -- SHERITA YU ([id number]) 1985 F Date Time Provider Department 08/02/22 12:45 PM DESHAUN RAMIREZ [facility] During your visit today, we recorded the following information about you: Temperature Pulse Respiration Blood pressure 97.7 degrees 84/minute 16/minute 122/78 Weight 98.4 kg Deshaun Ramirez MD 08/02/2022 1:39 PM Signed Patient presents with: Sore Throat: cough, low [...] similar medicines-discuss with prescriber. Deshaun Ramirez MD Referring Provider: SELF [200] Allergies As of Date: 08/02/2022 Noted Allergy Reaction CODEINE 07/22/2005 PENICILLINS 07/22/2005 Date Reviewed: 08/02/2022 Reviewed by: Sonia Damon - Fully Assessed Reason for Visit: Sore Throat [200] Cmt: cough, low grade fever, nasal congestion x 1 week Primary Visit Diagnosis:Sore throat [J02.9] Other Visit Diagnoses:Influenza-like illness [J11.1] Acute cough [R05.1] Order(s):STREP A MOLECULAR (POC) [0219856] Order #: [id number]. #:[id number] [id number] Prescriptions as of 08/02/2022 - busPIRone HCl 30 mg tablet - venlafaxine XR (EFFEXOR XR) 225 mg tablet - cholecalciferol, Vitamin D3, (VITAMIN D3) 1,250 mcg (50,000 unit) cap capsule Take 1 capsule by mouth one time a week. - buPROPion XL (WELLBUTRIN XL) 300 mg 24 hr tablet TAKE ONE TABLET BY MOUTH EVERY DAY - multivitamin tablet Take 1 tablet by mouth once daily. - Levothyroxine 137 mcg cap Take 137 mcg by mouth once daily. Meds Comments as of 04/25/2020: Calcium supplement Iron supplement-just recently started this Problem List As Of Date 08/02/2022 Noted Resolved Hypothyroidism [E03.9] SUPERVIS OTHER NORMAL PREG [Z34.80] 01/31/2006 CONDYLOMA ACUMINATUM [A63.0] 07/28/2006 Other Acne [L70.8] 05/16/2007 09/08/2009 Goiter, Simple [E04.0] 05/30/2009 Acne Vulgaris: Grade III to IV Inflammatory [L7*09/08/2009 Scar and Fibrosis of Skin: Acne type [L90.5] 09/08/2009 Xerosis cutis [L85.3] 08/01/2010 Cystic acne [L70.0] 08/30/2012 Postinflammatory skin changes [R23.8] 08/30/2012 Scars: acne related [L90.5] 08/30/2012 Epidermal cyst [L72.0] 08/30/2012 Anxiety with depression [F41.8] 08/14/2019 Medications Discontinued During This Encounter Prescriptions - DULoxetine (CYMBALTA) 30 mg capsule (Discontinued) TAKE 1 CAPSULE DAILY - escitalopram oxalate (LEXAPRO) 20 mg tablet (Discontinued) TAKE 1 TABLET DAILY - FLAXSEED OIL (OMEGA 3 ORAL) (Discontinued) Take 2,000 mg by mouth twice daily. Encounter Status:Closed by DESHAUN RAMIREZ on 08/02/22 Normal [facility] STREP A MOLECULAR (POC)on Procedural Control Valid [facility] Strep A (POCT) Negative Negative [facility] Basophil percentageOrdered B y: Dr. Stewart on 07-23-2022 Cholesterol [Mass/Vol] 248 mg/dL <200 [facility] Comment on above: <200 mg/dL Desirable 200-240 mg/dL Borderline >240 mg/dL High Risk Triglyceride [Mass/Vol] 282 mg/dL <199 [facility] Comment on above: The drugs N-Acetylcy steine and Metamizole may falsely depress this assay.Serum Triglycerides Reference Interval Normal <150 mg/dL Borderline high 150 - 199 mg/dL High 200 - 499 mg/dL Very High > or = 500 mg/dL Beta hCG serum qualOrdered B y: Dr. Stewart on 07-23-2022 Beta HCG ( test) Ql Negative [facility] Laboratory - Chemistry and C hemistry - challengeOrdered By: Dr. Stewart on 07-23-2022 ALT [Catalytic activity/Vol] 24 U/L 13-56 [facility] Serum or plasma cholesterol in HDL measurement (mass/volume)Ordered By: Dr. Stewart on 07-23-2022 Cholesterol in HDL [Mass/Vol] 43 mg/dL >40 [facility] Comment on above: The drugs N-Acetylcy steine and Metamizole may falsely depress this assay. Reference Range HDL <40 mg/dL Low HDL Cholesterol HDL >or= 60 mg/dL High HDL Cholesterol Serum or plasma cholesterol in VLDL measurement (mass/volume)Ordered By: Dr. Stewart on 07-23-2022 Cholesterol in VLDL [Mass/Vol] 56 mg/dL 5-40 [facility] Serum or plasma low density lipoprotein (LDL) cholesterol measurement (mass/volume)Ordered By: Dr. Stewart on 07-23-2022 Cholesterol in LDL [Mass/Vol] 149 mg/dL 0-130 [facility] Thin prep Papanicolaou smear with manual screeningOrdered By: Dr. Stewart on 07-23-2022 Thin prep Papanicolaou smear with manual screening 14 U/L 15-37 [facility] Office Visit (Internal Medic ine)on 06-28-2022 Follow-up visit Diagnoses/Problems Assessed Multinodular thyroid (241.1) (E04.2) Anxiety and depression (300.00,311) (F41.9,F32.A) BMI 31.0-31.9,adult (V85.31) (Z68.31) Class 1 obesity with body mass index (BMI) of 31.0 to 31.9 in adult (278.00,V85.31) (E66.9,Z68.31) Thyroid disease (246.9) (E07.9) Orders Anxiety and depression Start: Venlafaxine HCl ER 225 MG Oral Tablet Extended Release 24 Hour; Take 1 tab po daily Rx By: Cosme Joaquin; Dispense: 0 Days ; #:30 Tablet; Refill: 6;For: Anxiety and depression; URBANO = N; Verified Transmission to [facility]; Last Updated By: [employer]; 06/28/2022 11:53:40 AM Renew: busPIRone HCl - 30 MG Oral Tablet; TAKE 1 TABLET BY MOUTH TWICE DAILY Rx By: Cosme Joaquin; Dispense: 30 Days ; #:60 Tablet; Refill: 11;For: Anxiety and depression; URBANO = N; Verified Transmission to [facility]; Last Updated By: [employer]; 06/28/2022 11:53:40 AM Multinodular thyroid TSH WITH REFLEX TO FREE T4 IF ABNORMAL; Status:Active; Requested for:28Jun2022; Perform:Lab Services - Lab To Draw (Blood Test); Due:[id number];Ordered; For:Multinodular thyroid; Ordered By:Cosme Joaquin; Provider Impressions 1. Anxiety and depression, worsening - increase Effexor to 225mg po daily - continue Wellbutrin in the AM - continue BuSpar can increase to 30mg po bid 2. Hypothyroidism, hx of thyroid nodules - will repeat tsh - continue current dose of Synthroid 3. Migraines - continue Imitrex prn Chief Complaint 36 y/o female presents for 6 month f/u Pt would like to talk about increasing her BuSpar to 30 MG She is asking for thyroid labs to be placed History of Present IllnessPatient is here today for 6 mo follow up Patient reports that she has been feeling a lot more anxiety over the last 3 mo. There is nothing that is going on that is seeming to trigger it. Feels like she is just getting used to her medication. ALso due for thyroid labs. Review of Systems Neurological: +anxiety. Active Problems Problems Anxiety and depression (300.00,311) (F41.9,F32.A) BMI 31.0-31.9,adult (V85.31) (Z68.31) Class 1 obesity with body mass index (BMI) of 31.0 to 31.9 in adult (278.00,V85.31) (E66.9,Z68.31) Fatigue (780.79) (R53.83) Iron deficiency (280.9) (E61.1) Migraine (346.90) (G43.909) Multinodular thyroid (241.1) (E04.2) On Accutane therapy (V58.69) (Z79.899) Screening for diabetes mellitus (V77.1) (Z13.1) Screening for lipid disorders (V77.91) (Z13.220) Screening for malignant neoplasm of breast (V76.10) (Z12.39) Tension headache (307.81) (G44.209) Thyroid disease (246.9) (E07.9) Thyroid pain (246.8) (E07.89) Vitamin D deficiency (268.9) (E55.9) Past Medical History Problems History of thyroid nodule (V12.29) (Z86.39) Family History Other Family history of Chronic mental illness Family history of diabetes mellitus (V18.0) (Z83.3) Family history of fibromyalgia (V17.89) (Z82.69) Family history of hyperlipidemia (V18.19) (Z83.438) Social History Problems Daily caffeine consumption, 2-3 servings a day No illicit drug use Non-smoker (V49.89) (Z78.9) Social alcohol use (V49.89) (Z78.9) Allergies Medication Penicillins Hives;; Recorded By: Geovanni Hannah; 10/02/2019 8:18:28 AM Additional reactions - Breathing ability Codeine Abdominal pain; Nausea; Recorded By: Geovanni Hannah; 10/02/2019 8:18:28 AM Current Meds Medication NameInstruction buPROPion HCl ER (XL) 300 MG Oral Tablet Extended Release 24 HourTAKE 1 TABLET DAILY. busPIRone HCl - 15 MG Oral TabletTake one tablet by mouth three times a day. Levothyroxine Sodium 137 MCG Oral TabletTAKE 1 TABLET BY MOUTH EVERY DAY DIRECTED Loestrin 1.5/30 (21) 1.5-30 MG-MCG Oral Tablettake 1 tablet by mouth once daily for 21 DAYS, THEN DO NOT TAKE ANY TABS FOR 7 DAYS. SUMAtriptan Succinate 25 MG Oral TabletTAKE ONE TABLET BY MOUTH AT ONSET OF HEADACHE; MAY REPEAT ONE TABLET IN 2 HOURS IF NEEDED. MAX OF 2 PER DAY. Venlafaxine HCl ER 150 MG Oral Capsule Extended Release 24 HourTAKE 1 CAPSULE ONCE DAILY WITH FOOD. Vitamin D (Ergocalciferol) 1.25 MG (56780 UT) Oral Capsuletake 1 capsule by mouth every week Vitals Vital Signs Recorded: 28Jun2022 11:42AM Heart Rate78 Ttrslzrb470 Nzxcysaba58 Blood Pressure Cuff SizeAdult Height5 ft 10 in Vqlvog600 lb BMI Urghwbdmvx85.71 kg/m2 BSA Calculated2.18 Tobacco Useb) No Falls Screening (Age 18+)a) No falls within the last year Physical Exam Constitutional General appearance: Alert and in no acute distress. Eyes Inspection of eyes: Sclera and conjunctiva were normal. Pupil exam: Pupils were equal in size. Extraocular movements were intact. Pulmonary Respiratory assessment: No respiratory distress, normal respiratory rhythm and effort. Auscultation of Lungs: Clear bilateral breath sounds. Cardiovascular Auscultation of heart: Apical pulse normal, heart rate and rhythm normal, normal S1 and S2, no (more content not included)... Normal [facility] Tobacco Screening.on Fall risk assessment a) No falls within the last year [facility] Work Phone: Tobacco use status [facility] b) [facility]: [facility] Screening. Adult [facility] Work Phone: Laboratory - Chemistry and C hemistry - challengeOrdered By: Dr. Stewart on 06-22-2022 HCG ( test) Ql (U) Negative [facility] Comment on above: Very dilute urine sp ecimens, as indicated by a low specificgravity, may not contain footwear sales representative levels of hCG. If is still suspected, a first morning urinespecimen should be collected 48 hours later and tested. Laboratory - Chemistry and C hemistry - challengeon 05-27-2022 HCG ( test) Ql (U) Negative [facility] Work Phone: Comment on above: Very dilute urine sp ecimens, as indicated by a low specificgravity, may not contain footwear sales representative levels of hCG. If is still suspected, a first morning urinespecimen should be collected 48 hours later and tested. Basophil percentageon 2021 Cholesterol [Mass/Vol] 170 mg/dL <200 [facility] Work Phone: Comment on above: <200 mg/dL Desirable 200-240 mg/dL Borderline >240 mg/dL High Risk Triglyceride [Mass/Vol] 141 mg/dL <199 [facility] Work Phone: Comment on above: The drugs N-Acetylcy steine and Metamizole may falsely depress this assay.Serum Triglycerides Reference Interval Normal <150 mg/dL Borderline high 150 - 199 mg/dL High 200 - 499 mg/dL Very High > or = 500 mg/dL Beta hCG serum qualon 2021 Beta HCG ( test) Ql Negative [facility] Work Phone: Laboratory - Chemistry and C hemistry - challengeon 04-27-2022 ALT [Catalytic activity/Vol] 22 U/L 13-56 [facility] Work Phone: Serum or plasma cholesterol in HDL measurement (mass/volume)on 04-27-2022 Cholesterol in HDL [Mass/Vol] 39 mg/dL >40 [facility] Work Phone: Comment on above: The drugs N-Acetylcy steine and Metamizole may falsely depress this assay. Reference Range HDL <40 mg/dL Low HDL Cholesterol HDL >or= 60 mg/dL High HDL Cholesterol Serum or plasma cholesterol in VLDL measurement (mass/volume)on 04-27-2022 Cholesterol in VLDL [Mass/Vol] 28 mg/dL 5-40 [facility] Work Phone: Serum or plasma low density lipoprotein (LDL) cholesterol measurement (mass/volume)on 04-27-2022 Cholesterol in LDL [Mass/Vol] 103 mg/dL 0-130 [facility] Work Phone: Thin prep Papanicolaou smear with manual screeningon 04-27-2022 Thin prep Papanicolaou smear with manual screening 14 U/L 15-37 [facility] Work Phone: Basophil percentageon 2021 Bilirubin [Mass/Vol] 0.30 mg/dL 0.20-1.00 [facility] Work Phone: Comment on above: For patients on eltr ombopag therapy, use of Dimension [place] TBIL is not recommended. Chloride [Moles/Vol] 105 mmol/L 98-107 [facility] Work Phone: Cholesterol [Mass/Vol] 201 mg/dL <200 [facility] Work Phone: Comment on above: <200 mg/dL Desirable 200-240 mg/dL Borderline >240 mg/dL High Risk Glucose [Mass/Vol] 89 mg/dL 74-106 [facility] Work Phone: Potassium [Moles/Vol] 4.1 mmol/L 3.5-5.1 [facility] Work [facility]: Protein [Mass/Vol] 7.2 g/dL 6.4-8.2 [facility] Work Phone: Sodium [Moles/Vol] 137 mmol/L 136-145 [facility] Work Phone: Triglyceride [Mass/Vol] 244 mg/dL <199 [facility] Work Phone: Comment on above: The drugs N-Acetylcy steine and Metamizole may falsely depress this assay.Serum Triglycerides Reference Interval Normal <150 mg/dL Borderline high 150 - 199 mg/dL High 200 - 499 mg/dL Very High > or = 500 mg/dL Laboratory - Chemistry and C hemistry - challengeon 01-12-2022 ALP [Catalytic activity/Vol] 69 U/L 45-117 [facility] Work Phone: ALT [Catalytic activity/Vol] 25 U/L 13-56 [facility] Work Phone: CO2 [Moles/Vol] 27.0 mmol/L 21.0-32.0 [facility] Work Phone: Free T4 [Mass/Vol] 0.94 ng/dL 0.76-1.46 [facility] Work Phone: Globulin (S) [Mass/Vol] 3.2 g/dL 2.2-4.2 [facility] Work Phone: Urea nitrogen/Creatinine [Mass ratio] 14.2 mg/mg 10-20 [facility] Work Phone: No Panel Informationon 01-12 Estimated GFR (MDRD) Amer 96 mL/min >60 [facility] Work Phone: Comment on above: GFR Calc Estimated GFR (MDRD) Non-Af Amer 80 mL/min >60 [facility] Work Phone: Comment on above: Non- GFR Calc Thyroid Stimulating Hormone (TSH) 1.51 uIU/mL 0.358-3.74 [facility] Work Phone: Serum or plasma albumin lesa urement (mass/volume)on 01-12-2022 Albumin [Mass/Vol] 4.0 g/dL 3.2-5.0 [facility] Work Phone: Serum or plasma albumin/glob ulin mass ratioon 01-12-2022 Albumin/Globulin [Mass ratio] 1.2 {ratio} 0.9-2.4 [facility] Work Phone: Serum or plasma calcium lesa urement (mass/volume)on 01-12-2022 Calcium [Mass/Vol] 8.6 mg/dL 8.5-10.1 [facility] Work Phone: Serum or plasma cholesterol in HDL measurement (mass/volume)on 01-12-2022 Cholesterol in HDL [Mass/Vol] 44 mg/dL >40 [facility] Work Phone: Comment on above: The drugs N-Acetylcy steine and Metamizole may falsely depress this assay. Reference Range HDL <40 mg/dL Low HDL Cholesterol HDL >or= 60 mg/dL High HDL Cholesterol Serum or plasma cholesterol in VLDL measurement (mass/volume)on 01-12-2022 Cholesterol in VLDL [Mass/Vol] 49 mg/dL 5-40 [facility] Work Phone: Serum or plasma creatinine m easurement (mass/volume)on 01-12-2022 Creatinine [Mass/Vol] 0.85 mg/dL 0.55-1.02 [facility] Work Phone: Comment on above: The validity of the calculated GFR & GFRAA in patients over 70 years has not been determined. Clinical correlation is essential. Serum or plasma low density lipoprotein (LDL) cholesterol measurement (mass/volume)on 01-12-2022 Cholesterol in LDL [Mass/Vol] 108 mg/dL 0-130 [facility] Work Phone: Serum or plasma urea nitroge n measurement (mass/volume)on 01-12-2022 Urea nitrogen [Mass/Vol] 12 mg/dL 7-18 [facility] Work Phone: Thin prep Papanicolaou smear with manual screeningon 01-12-2022 Thin prep Papanicolaou smear with manual screening 16 U/L 15-37 [facility] Work Phone: Thin prep Papanicolaou smear with manual screening 5 5-15 [facility] Work Phone: Office Visit (Internal Medic ine)on 12-28-2021 Follow-up visit Diagnoses/Problems Health Maintenance/Risks Encounter for preventive health examination (V70.0) (Z00.00) Assessed Thyroid pain (246.8) (E07.89) Multinodular thyroid (241.1) (E04.2) Screening for lipid disorders (V77.91) (Z13.220) Vitamin D deficiency (268.9) (E55.9) Class 1 obesity with body mass index (BMI) of 31.0 to 31.9 in adult (278.00,V85.31) (E66.9,Z68.31) BMI 31.0-31.9,adult (V85.31) (Z68.31) Orders Health Maintenance Comprehensive Metabolic Panel; Status:Active; Requested for:28Dec2021; Perform:Lab Services - Lab To Draw (Blood Test); Due:28Mar2022;Ordered; For:Health Maintenance; Ordered By:Cosme Joaquin; Migraine Renew: SUMAtriptan Succinate 25 MG Oral Tablet (Imitrex); TAKE ONE TABLET BY MOUTH AT ONSET OF HEADACHE; MAY REPEAT ONE TABLET IN 2 HOURS IF NEEDED. MAX OF 2 PER DAY Rx By: Cosme Joaquin; Dispense: 9 Days ; #:18 Tablet; Refill: 6;For: Migraine; URBANO = N; Verified Transmission to [facility]; Last Updated By: Sandra Bah; 12/28/2021 11:58:39 AM Multinodular thyroid TSH WITH REFLEX TO FREE T4 IF ABNORMAL; Status:Active; Requested for:28Dec2021; Perform:Lab Services - Lab To Draw (Blood Test); Due:09Igc3330;Ordered; For:Multinodular thyroid; Ordered By:Cosme Joaquin; Multinodular thyroid, Thyroid pain Ultrasound Thyroid; Status:Hold For - Scheduling; Requested for:28Dec2021; Perform:[facility]; Due:28Mar2022;Ordered; For:Multinodular thyroid, Thyroid pain; Ordered By:Cosme Joaquin; Radiologist to Determine Optimal Study : Y What are the patient's signs and symptoms? : thyroid pain, right side Screening for lipid disorders Lipid Panel; Status:Active; Requested for:28Dec2021; Perform:Lab Services - Lab To Draw (Blood Test); Due:28Mar2022;Ordered; For:Screening for lipid disorders; Ordered By:Cosme Joaquin; Vitamin D deficiency Renew: Vitamin D (Ergocalciferol) 1.25 MG (06735 UT) Oral Capsule; take 1 capsule by mouth every week Rx By: Cosme Joaquin; Dispense: 28 Days ; #:5 Capsule; Refill: 6;For: Vitamin D deficiency; URBANO = N; Verified Transmission to [facility]; Last Updated By: Sandra Bah; 12/28/2021 11:59:28 AM Provider Impressions 1. Anxiety and depression, stable, controlled - continue Effexor 150mg po daily - continue Wellbutrin in the AM - continue BuSpar to 15mg tid prn 2. Hypothyroidism, hx of thyroid nodules - will repeat tsh - continue current dose of Synthroid - will order annual thyroud us 3. Will order cmp and lipid panel 4. Migraines - continue imitrex prn Chief Complaint 36 y/o female presents for 6 month f/u She would like to get lab work done for thyroid She would like her yearly thyroid US scheduled She states she feels like her voice has been raspy and her throat has been sore on only 1 side Adult Risk Screening Initial Fall Risk Screening: SHERITA has not fallen in the last 6 months. Tobacco Screening: SHERITA does not use tobacco. History of Present Illness Patient is here today for 6 mo follow up Patient rpeorts that overall her anxiety is well controlled on the Effexor and Wellbutrin. She is due for us of her thyroid and blood work. She feels like she has been having a raspy voice that comes and goes which is new. Feels like the right episode of her throat, points to thyroid area sometimes is sore. She did have one in 11/2020 from [place] but that result was not scanned into [facility]. Review of Systems ENT: sore throat and right sided neck pain +, but no earache and no nasal discharge. Active Problems Problems Anxiety and depression (300.00,311) (F41.9,F32.A) Fatigue (780.79) (R53.83) Iron deficiency (280.9) (E61.1) Migraine (346.90) (G43.909) Screening for diabetes mellitus (V77.1) (Z13.1) Screening for lipid disorders (V77.91) (Z13.220) Screening for malignant neoplasm of breast (V76.10) (Z12.39) Tension headache (307.81) (G44.209) Thyroid disease (246.9) (E07.9) Vitamin D deficiency (268.9) (E55.9) Past Medical History Problems History of thyroid nodule (V12.29) (Z86.39) Family History Other Family history of Chronic mental illness Family history of diabetes mellitus (V18.0) (Z83.3) Family history of fibromyalgia (V17.89) (Z82.69) Family history of hyperlipidemia (V18.19) (Z83.438) Social History Problems Daily caffeine consumption, 2-3 servings a day No illicit drug use Non-smoker (V49.89) (Z78.9) Social alcohol use (V49.89) (Z78.9) Allergies Medication Penicillins Hives;; Recorded By: Geovanni Hannah; 10/02/2019 8:18:28 AM Additional reactions - Breathing ability Codeine Abdominal pain; Nausea; Recorded By: Geovanni Hannah; 10/02/2019 8:18:28 AM Current Meds Medication NameInstruction buPROPion HCl ER (XL) 300 MG Oral Tablet Extended Release 24 HourTAKE 1 TABLET DAILY. busPIRone HCl - 15 MG Oral TabletTake one tablet by mouth three times a day. D3-50 1.25 MG (50 (more content not included)... Normal [facility] PHQ-2 VITALSon 12-28-2021 Adult depression screening assessment No -[facility] Work Phone: Fall risk assessment a) No falls within the last year [facility] Work Phone: Tobacco use status [facility] b) [facility] Work Phone: PHQ-2 VITALS Adult [facility] Work Phone: Covid 19 Resultson 2 SARS-CoV-2 (COVID-19) RNA SUSAN+probe Ql (Unsp spec) NEGATIVE COVID-19 Test Coronaviruses are common world-wide and are the cause of many common colds. SARS-COV2 is a new coronavirus that began circulating worldwide in 2019 so we are calling it COVID-19. It has been estimated that four out of five patients with COVID-19 will recover at home without the need for medical attention. Symptoms of COVID-19 may include cough, fever, shortness of breath, loss of taste or smell and other flu-like symptoms including chills, sore muscles, sore throat, and headache. Severe illness is more common in older people and people with other health problems such as high blood pressure, obesity, and immune system problems. If the test is positive, you have COVID-19. You will be contacted by the ordering physicians office and instructed to remain on home isolation, in accordance with CDC guidelines. You may also be contacted by the [facility] to see if any of your close contacts may have been exposed to the virus and need to quarantine. If the test is negative, you likely do not have COVID-19 at this time, but you still may have a different illness that can spread to other people (like Influenza, or the Flu) and could still be at risk for getting COVID-19. We recommend that you stay away from other people to limit the spread of illness until your symptoms are improving and you are fever-free for 24 hours without the use of fever lowering medications such as acetaminophen or ibuprofen. No test is 100% accurate so if you are still concerned you may have COVID-19, talk to your doctor about the need to continue to stay away from others. Medicines Unless your provider told you not to use the following: Acetaminophen (Tylenol and others) is generally safe. Anti-inflammatory medications, such as Ibuprofen (Advil or Motrin) or Naproxen (Aleve) can also be used. Dzpf-ufq-bnrpfdw cough and cold medicines can be used according to the instructions on the package. Some dirc-wea-myfizmp medicines also contain acetaminophen. Make sure you are not taking more than your recommended dose. For those not hospitalized, there is no specific treatment available for this illness. Antibiotics do not treat Coronaviruses. Follow-Up Follow up with your doctor by scheduling a virtual visit or consider follow-up at one of our urgent care fever clinics. If you are having difficulty breathing, or are very weak and having difficulty standing, this is a medical emergency. Call 911 or have someone take you to the nearest emergency room immediately. If possible, wear a facemask. Additional guidance from the CDC for patients who tested POSITIVE for COVID-19 How to isolate: Isolate yourself in a specific room at home and limit your contact with others. Use a separate bathroom from other members of the household, when possible. Leave home only to get essential medical care. Do not go to work, school or public areas. Avoid using public transportation, ride-sharing, or taxis. Restrict contact with pets and other animals. If you must care for your pet or be around animals while you are sick, wash your hands before and after your interaction and wear a facemask. Make sure that shared spaces in the home have good airflow, such as by an air conditioner or an opened window, weather permitting. Personal Hygiene Procedures: Wear a face mask when in the same room as other people or pets. If a face mask interferes with your breathing, others should wear a mask when sharing space with you. Frequent hand-washing: wash your hands with soap and water for at least 20 seconds. If soap and water are not available, use alcohol-based hand topper press operator. Avoid touching your eyes, nose, and mouth with unwashed hands. Household Hygiene Procedures: Avoid sharing personal household items such as dishes, glassware, cups, eating utensils, towels or bedding with other people or pets in your home. After use, these items should be washed with soap and hot water. Disinfect all high-touch surfaces every day with antibacterial cleaning solutions such as Lysol wipes, bleach, cleansers, etc. High-touch surfaces include tabletops, doorknobs, bathroom fixtures, toilets, phones, keyboards, tablets and bedside tables. Immediately clean any surfaces that may have blood, poop or body fluids on them, using antibacterial cleaning solutions such as Lysol wipes, bleach, cleansers, etc. If clothing or bedding come into contact with blood, poop or body fluids, they should be washed immediately. Follow the directions on the laundry detergent and clothing labels but hot water is recommended when possible. Stopping home isolation precautions: If possible, consult your doctor before stopping home isolation precautions. According to the CDC, you can discontinue home isolation precautions when you have met both of these criteria: Your fever and respiratory symptoms have been gone for 24 abby (more content not included)... Normal [facility] INFLUENZA A/B, COVID 2019 PC R,SYMPTOMATICon 11-07-2021 INFLUENZA A, PCR Not detected Normal Not Detected [facility] Comment on above: Result Comment: Resp iratory virus testing is performed routinely by PCR for Influenza A/B and RSV. If Influenza and RSV PCR are negative, testing for parainfluenza 1,2,3 viruses and adenovirus is routinely performed for oncology inpatients and intensive care unit patients at [facility] and is available on request on other patients by calling Laboratory Client Services at [phone]. Not Detected results do not preclude Influenza A/B or RSV infections since the adequacy of sample collection or low viral burden may impact the clinical sensitivity of this test method. Performed By: #### C OINP #### [facility] [address] [place] [address] INFLUENZA B, PCR Not detected Normal Not Detected [facility] Comment on above: Result Comment: Resp iratory virus testing is performed routinely by PCR for Influenza A/B and RSV. If Influenza and RSV PCR are negative, testing for parainfluenza 1,2,3 viruses and adenovirus is routinely performed for oncology inpatients and intensive care unit patients at [facility] and is available on request on other patients by calling Laboratory Client Services at [phone] Not Detected results do not preclude Influenza A/B or RSV infections since the adequacy of sample collection or low viral burden may impact the clinical sensitivity of this test method. . The TaqManTM SARS-CoV-2, Flu A, Flu B Multiplex Assay is a multiplex, real-time RT-PCR assay for the detection of RNA from the SARS-CoV-2, Influenza A, and Influenza B viruses. A negative result does not preclude the possibility of SARS-CoV-2, Influenza A, or Influenza B infections, and should not be used as the sole basis for patient management decision as a negative result may be caused by very low levels of infection, collection errors, or testing errors. . This test was developed and its performance characteristics were determined by the Microbiology Laboratory, Department of Pathology, [facility], [place], [place]. It has not been cleared or approved by the US Food and Drug Administration; however, FDA clearance or approval is not currently required for clinical use. This test should not be regarded as investigational or for research purposes. Performed By: #### C OINP #### [facility] [address] [place] [address] SARS-CoV-2 (COVID-19) RNA SUSAN+probe Ql (Unsp spec) Not detected Normal Not Detected [facility] Comment on above: Result Comment: . This assay is designed to detect the N, ORF1ab and/or S genes of SARS-CoV-2 via nucleic acid amplification. A Negative (NOT DETECTED) result does not preclude 2019-nCoV infection since the adequacy of sample collection and/or low viral burden may result in presence of viral nucleic acids below the clinical sensitivity of this test method. Negative (NOT DETECTED) result should not be used as the sole basis for treatment or other patient management decisions. Rather negative results should be combined with clinical observations, patient history, and epidemiological information to make patient management decisions. Fact sheet for providers: https://www.fda.gov/media/192811/download Fact sheet for patients: https://www.fda.gov/media/661850/download This test has received FDA Emergency Use Authorization (EUA) and has been verified by [facility] ([facility]). This test is only authorized for the duration of time that circumstances exist to justify the authorization of the emergency use of in vitro diagnostic tests for the detection of SARS-CoV-2 virus and/or diagnosis of COVID-19 infection under section 564(b)(1) of the Act, 21 U.S.C. 360bbb-3(b)(1), unless the authorization is terminated or revoked sooner. [facility] is certified under CLIA-88 as qualified to perform high complexity testing. Testing is performed in the [facility] laboratories located at [id number] [place] [address]. Performed By: #### C OINP #### [facility] [id number] [place] [address] INFLUENZA A/B, COVID 2019 PC R,SYMPTOMATICon 11-06-2021 Lab Specimen Source Nasal, Nasopharyngeal Normal [facility] Comment on above: Performed By: #### C OINP #### [place] [address] [address] [place] [address] INFLUENZA A/B, COVID 2019 PCR,SYMPTOMATIC Not detected See Below -[facility] Work Phone: Comment on above: Reference Range: Not Detected.This assay is designed to detect the N, ORF1ab and/or S genes of SARS-CoV-2 via nucleic acid amplification. A Negative (NOT DETECTED) result does not preclude 2019-nCoV infection since the adequacy of sample collection and/or low viral burden may result in presence of viral nucleic acids below the clinical sensitivity of this test method. Negative (NOT DETECTED) result should not be used as the sole basis for treatment or other patient management decisions. Rather negative results should be combined with clinical observations, patient history, and epidemiological information to make patient management decisions.Fact sheet for providers: https://www.fda.gov/media/412785/downloadFact sheet for patients: https://www.fda.gov/media/654530/downloadThis test has received FDA Emergency Use Authorization (EUA) and has been verified by [facility] ([facility]). This test is only authorized for the duration of time that circumstances exist to justify the authorization of the emergency use of in vitro diagnostic tests for the detection of SARS-CoV-2 virus and/or diagnosis of COVID-19 infection under section 564(b)(1) of the Act, 21 U.S.C. 360bbb-3(b)(1), unless the authorization is terminated or revoked sooner. [facility] is certified under CLIA-88 as qualified to perform high complexity testing. Testing is performed in the [facility] laboratories located at [address] [place] [address]. Reference Range: Not Detected Respiratory virus testing is performed routinely by PCR for Influenza A/B and RSV. If Influenza and RSV PCR are negative, testing for parainfluenza 1,2,3 viruses and adenovirus is routinely performed for oncology inpatients and intensive care unit patients at [facility] and is available on request on other patients by calling Laboratory Client Services at [phone] Not Detected results do not preclude Influenza A/B or RSV infections since the adequacy of sample collection or low viral burden may impact the clinical sensitivity of this test method..The TaqManTM SARS-CoV-2, Flu A, Flu B Multiplex Assay is a multiplex, real-time RT-PCR assay for the detection of RNA from the SARS-CoV-2, Influenza A, and Influenza B viruses. A negative result does not preclude the possibility of SARS-CoV-2, Influenza A, or Influenza B infections, and should not be used as the sole basis for patient management decision as a negative result may be caused by very low levels of infection, collection errors, or testing errors. .This test was developed and its performance characteristics were determined by the Microbiology Laboratory, Department of Pathology, [facility], [place], [place]. It has not been cleared or approved by the US Food and Drug Administration; however, FDA clearance or approval is not currently required for clinical use. This test should not be regarded as investigational or for research purposes. SOURCE: Nasal, Nasop haryngealReference Range: Not Detected Respiratory virus testing is performed routinely by PCR for Influenza A/B and RSV. If Influenza and RSV PCR are negative, testing for parainfluenza 1,2,3 viruses and adenovirus is routinely performed for oncology inpatients and intensive care unit patients at [facility] and is available on request on other patients by calling Laboratory Client Services at [phone]. Not Detected results do not preclude Influenza A/B or RSV infections since the adequacy of sample collection or low viral burden may impact the clinical sensitivity of this test method. Provider Note - ED v3on 04-0 Provider Note - ED v3 Provider Note: Chart Review HISTORY OF PRESENTING ILLNESS SHERITA is a 36 year old Female and was seen by me at 06-Nov-2021 11:41. The historian is the patient. Triage Information: Most recent Vital Sign Value Date PAST MEDICAL HISTORY ALLERGIES/INTOLERANCES: Allergy Allergen: penicillin Type: Drug Reaction: Unknown Allergen: codeine Type: Drug Reaction: Hives/Urticaria HEALTH HISTORY: History of hypothyroidism and anxiety. No other known health issues. Family history: no pertinent history. Social history: Former smoker (quit 8 yrs ago). Has 3 children (2 girls and a 5 yo boy). OUTPATIENT MEDICATIONS: Home Medications Review Status for Reconciliation: Complete Med Status: Patient Currently Takes Medications Drug Name: Synthroid Instructions: null Drug Name: CeleXA Instructions: null Drug Name: BuSpar Instructions: null Drug Name: buPROPion Instructions: null Drug Name: benzonatate 100 mg oral capsule Instructions: 1-2 cap(s) orally every 8 hours, As Needed for cough Drug Name: Zithromax Z-Julio C 250 mg oral tablet Instructions: 2 tab(s) by mouth at once on day 1, then 1 tablet once a day on days 2-5 Drug Name: polymyxin B-trimethoprim 10,000 units-1 mg/mL ophthalmic solution Instructions: 1 drop(s) in affected eye 4 times a day x 7 days SIGNIFICANT EVENTS: History of x 1; no other known significant events or other known past surgical history. Has received 2 doses of the Moderna COVID-19 vaccine. 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 Reports also has a very sore throat, a hoarse voice, severe sinus pressure with sinus headaches, and ear fullness bilat. Her L eye is red and slightly itchy/burny - denies any crusting or drainage from the eye, and denies any pain or changes in vision. No known irritants or injury. She denies any abdominal pain, chest pain, wheezing/shortness of breath, rashes (although chest/neck are a little itchy - has been applying essential oils and believes this could be to blame), urinary symptoms, nausea/vomiting, and diarrhea. Denies any lightheadedness or dizziness; no changes in mental status. No swelling in legs. Appetite is poor but is able to drink fluids without difficulty; denies any loss of sense of taste/smell. Reports feels like symptoms are getting worse since onset. Has been taking Mucinex Max Cold without much relief; no other zorh-jvw-yqwpban medications or home remedies for symptom management. Her 5 yo son was dx'd yesterday with bronchiolitis and started on antibiotics; no other known ill contacts. Is a former smoker. Has received 2 doses of the COVID-19 vaccine; no known history of past COVID infection. REVIEW OF SYSTEMS 10 systems reviewed negative with exception of history of present illness listed above PHYSICAL EXAMINATION General: Pleasant female; alert and oriented; in no acute distress, but appears to be feeling mildly unwell. Non-toxic appearing. Sitting comfortably on exam table. Non-dyspneic. Eyes: Pupils equal, round and reactive to light. No photophobia. L eye conjunctiva with erythema noted medially - No ciliary flush; no grossly visible abnormality of pupil. No crusting or active drainage from eye. EOMI intact without pain/limitation. No tenderness or abnormalities noted to eyelids or periorbital area. Visual acuity grossly intact. No L conjunctival erythema. No scleral icterus. HENT: + frontal and maxillary sinus tenderness; + audible nasal congestion. Airway patent, TMs with clear fluid effusions but not retracted or bulging, and no erythema; ear canals clear bilaterally. Nasal mucosa injected and edematous. Oral mucosa moist. Posterior pharynx moderately injected but without vesicles or oropharyngeal exudate aside from PND. Uvula is midline. Managing oral secretions without difficulty. Neck: Supple. Tender, mobile anterior cervical lymphadenopathy bilat. Trachea is midline. Respiratory: Respirations easy and unlabored, Breath sounds equal. Lungs are clear to auscultation; no wheezes, rhonchi, or rales; has good air movement throughout. Harsh, persisstent, semi-productive cough noted. Non-dyspneic with ambulation; able to maintain SpO2. Cardiovascular: Normal rate, Regular rhythm. Normal S1S2. No m/r/g. No peripheral edema. Gastrointest (more content not included)... Normal [facility] Blood Pressure Cuff Sizeon 1 08-29-2020 Fall risk assessment a) No falls within the last year [facility] Work Phone: Tobacco use status [facility] b) No M [facility] Work Phone: Blood Pressure Cuff Size Adult [facility] Work Phone: Blood Pressure Cuff Sizeon 0 03-30-2021 Fall risk assessment a) No falls within the last year [facility] Work Phone: Tobacco use status [facility] b) No M [facility] Work Phone: Blood Pressure Cuff [facility] Work Phone: Blood Pressure Cuff Sizeon 0 01-19-2021 Fall risk assessment a) No falls within the last year [facility] Work Phone: Tobacco use status [facility] b) No [facility]: Blood Pressure Cuff Size [facility] DATE OF SERVICE: 11/16/2020 HISTORY OF PRESENT [...] other rashes or lesions. Otherwise healthy-appearing. IMPRESSION: [facility] PATIENT NAME: SHERITA YU [address] [place] MEDICAL REC #: [id number] [place] [address] [facility] STATCARE REPORT STATCARE PHYSICIAN 1. Contact dermatitis. 2. Reactive airway. PLAN: I put her on prednisone, albuterol and discharged. GABRIELE Cat/[id number] [facility] File#: [id number] END OF DOCUMENT / CHANGE LOG FOLLOWS Last Edited By Elec. Signed By Ender GamezDYKLE Ender Gamez on 12/10/2020 14:05 ET on 12/10/2020 14:05 ET Revision Number - 2 Verified/Reviewed by 12/10/20 1405 [facility]ER[facility] PATIENT NAME: SHERITA YU [address] [place] MEDICAL REC #: [id number] [place] [address] [place] STATCARE REPORT STATCARE PHYSICIAN Normal [facility] STATCARE REPORT Normal [facility] CORONAVIRUS PCR [CCL]on 02-06 COVID 19 Result SEED YEAST OPERATOR Negative Normal [facility] Comment on above: Result Comment: Nega tive for COVID19 (SARS CoV2) by PCR. This test was developed and its performance characteristics determined by [facility]'s [facility] Pathology and Laboratory Medicine [place]. This test has been authorized by [facility] under an Emergency Use Authorization (EUA). This test has been validated in accordance with the FDA's Guidance Document Policy for Diagnostics Testing in Laboratories Certified to Perform High Complexity Testing under CLIA prior to Emergency use Authorization for Coronavirus Disease 2019 during the Public Health Emergency issued on October 06, 2019. [facility] Laboratories [address] [place] [address] Juan Grant III, M.D. [id number] Performed By: #### 2 [id number] #### [address] [address] COVID 19 Source SEED YEAST OPERATOR Nasopharyngeal Swab Normal [facility] Comment on above: Performed By: #### 2 [id number] #### [address] [address] Coronavirus 2019 0 COVID 19 Result SEED YEAST OPERATOR Normal Negative for COVID19 (SARS CoV2) by PCR. [facility] Comment on above: Result Comment: Nega tive for This test was developed and its performance characteristics determined by [facility]'s [facility] Pathology and Laboratory [facility] [place]. This test has been authorized by FDA under an Emergency Use Authorization (EUA). This test has been validated in accordance with the FDA's Guidance Document Policy for Diagnostics Testing in Laboratories Certified to Perform High Complexity Testing under CLIA prior to Emergency use Authorization for Coronavirus Disease 2019 during the Public Health Emergency issued on October 06, 2019. COVID19 (SARS This test was developed and its performance characteristics determined by [facility] Pathology and Laboratory [facility] [place]. This test has been authorized by FDA under an Emergency Use Authorization (EUA). This test has been validated in accordance with the FDA's Guidance Document Policy for Diagnostics Testing in Laboratories Certified to Perform High Complexity Testing under CLIA prior to Emergency use Authorization for Coronavirus Disease 2019 during the Public Health Emergency issued on October 06, 2019. CoV2) by PCR. This test was developed and its performance characteristics determined by [facility] Pathology and Laboratory Medicine [place]. This test has been authorized by FDA under an Emergency Use Authorization (EUA). This test has been validated in accordance with the FDA's Guidance Document Policy for Diagnostics Testing in Laboratories Certified to Perform High Complexity Testing under CLIA prior to Emergency use Authorization for Coronavirus Disease 2019 during the Public Health Emergency issued on October 06, 2019. Coronavirus 2019on 0 COVID 19 Source SEED YEAST OPERATOR SEED YEAST OPERATOR Normal [facility] Reference Lab Free T3on 08-28-2018 T3 free mass conc 3.3 pg/mL Normal 2.5-3.9 [facility] Comment on above: Performed By: #### 2 [id number] #### [employer] [facility] [place] [address] Free T4on 08-28-2018 T4 free mass conc 0.76 ng/dL Normal 0.58-1.64 [facility] Comment on above: Performed By: #### 2 [id number] #### [employer] [address] [place] [address] TSHon 08-28-2018 Thyrotropin Qn 0.23 mcIU/mL Low 0.30-5.60 [facility] Comment on above: Performed By: #### 2 [id number] #### [employer] [address] [place] [address] Vital Signs Date Time Vital Sign Value Performing Clinician Facility 06-15-2024 13:50-0500 Body height 177.8 cm Samantha Renae SAGGER SOAK-REPAIR OPERATOR Work Phone: [facility] 06-15-2024 13:50-0500 Body mass index (BMI) [Ratio] 29.13 kg/m2 Samantha Renae SAGGER SOAK-REPAIR OPERATOR Work Phone: [facility] 06-15-2024 13:50-0500 Body temperature 98.2 [degF] Samantha Renae SAGGER SOAK-REPAIR OPERATOR Work Phone: [facility] 06-15-2024 13:50-0500 Body weight 92.08 kg Samantha Renae SAGGER SOAK-REPAIR OPERATOR Work Phone: [facility] 06-15-2024 13:50-0500 Diastolic blood pressure 72 mm[Hg] Samantha Renae SAGGER SOAK-REPAIR OPERATOR Work Phone: [facility] 06-15-2024 13:50-0500 Heart rate 77 /min Samantha Renae SAGGER SOAK-REPAIR OPERATOR Work Phone: [facility] 06-15-2024 13:50-0500 Respiratory rate 16 /min Samantha Renae SAGGER SOAK-REPAIR OPERATOR Work Phone: [facility] 06-15-2024 13:50-0500 SaO2% (BldA) [Mass fraction] 100 % Samantha Renae SAGGER SOAK-REPAIR OPERATOR Work Phone: [facility] 06-15-2024 13:50-0500 Systolic blood pressure 126 mm[Hg] Samantha Renae SAGGER SOAK-REPAIR OPERATOR Work Phone: [facility] 04-23-2024 11:15-0400 Body height 177.8 cm Cosme Oberhauser DO Work Phone: [facility] 04-23-2024 11:15-0400 Body mass index (BMI) [Ratio] 28.7 kg/m2 Cosme Oberhauser DO Work Phone: [facility] 04-23-2024 11:15-0400 Body weight 90.72 kg Cosme Oberhauser DO Work Phone: [facility] 04-23-2024 11:15-0400 Diastolic blood pressure 72 mm[Hg] Cosme Oberhauser DO Work Phone: [facility] 04-23-2024 11:15-0400 Heart rate 78 /min Cosme Oberhauser DO Work Phone: [facility] 04-23-2024 11:15-0400 Systolic blood pressure 110 mm[Hg] Cosme Oberhauser DO Work Phone: [facility] 10-10-2023 11:14-0500 Body height 177.8 cm Cosme Oberhauser DO Work Phone: [facility] 10-10-2023 11:14-0500 Body mass index (BMI) [Ratio] 29.7 kg/m2 Cosme Oberhauser DO Work Phone: [phone] [place] [address] 10-10-2023 11:14-0500 Body weight 93.89 kg Cosme Oberhauser DO Work Phone: [facility] 10-10-2023 11:14-0500 Diastolic blood pressure 82 mm[Hg] Cosme Oberhauser DO Work Phone: [facility] 10-10-2023 11:14-0500 Heart rate 88 /min Cosme Oberhauser DO Work Phone: [facility] 10-10-2023 11:14-0500 Systolic blood pressure 127 mm[Hg] Cosme Oberhauser DO Work Phone: [facility] 07-18-2023 14:39-0500 Body height 177.[address] Cosme Joaquin Work Phone: [facility] 07-18-2023 14:39-0500 Body mass index (BMI) [Ratio] 29.9 kg/m2 Dr. Cosme Joaquin Work Phone: [facility] 07-18-2023 14:39-0500 Body temperature 98.7 [degF] Dr. Cosme Joaquin Work Phone: [facility] 07-18-2023 14:39-0500 Body weight 94.[address] Cosme Joaquin Work Phone: [facility] 07-18-2023 14:39-0500 Diastolic blood pressure 82 mm[Hg] Dr. Cosme Joaquin Work Phone: [facility] 07-18-2023 14:39-0500 Heart rate 80 /min Dr. Cosme Joaquin Work Phone: [facility] 07-18-2023 14:39-0500 Respiratory rate 16 /min Dr. Cosme Joaquin Work Phone: [facility] 07-18-2023 14:39-0500 SaO2% (BldA) [Mass fraction] 97 % Dr. Cosme Joaquin Work Phone: [facility] 07-18-2023 14:39-0500 Systolic blood pressure 136 mm[Hg] Dr. Cosme Joaquin Work Phone: [facility] 04-04-2023 11:21-0400 Body height 177.8 cm Cosme Joaquin DO Work Phone: [facility] 04-04-2023 11:21-0400 Body mass index (BMI) [Ratio] 29.7 kg/m2 Cosme Joaquin DO Work Phone: [facility] 04-04-2023 11:21-0400 Body weight 93.89 kg Cosme Joaquin DO Work Phone: [facility] 04-04-2023 11:21-0400 Diastolic blood pressure 79 mm[Hg] Cosme Joaquin DO Work Phone: [facility] 04-04-2023 11:21-0400 Heart rate 80 /min Cosme Joaquin DO Work Phone: [facility] 04-04-2023 11:21-0400 Systolic blood pressure 127 mm[Hg] Cosme Trenterlinda DO Work Phone: [facility] 09-27-2022 11:24-0500 Body height 177.8 cm Cosme L Oberhauser Work Phone: [facility] Work Phone: 09-27-2022 11:24-0500 Body mass index (BMI) [Ratio] 32 kg/m2 Cosme L Oberhauser Work Phone: [facility] Work Phone: 09-27-2022 11:24-0500 Body surface area Derived from formula 2.19 m2 Cosme Hope Oberhauser Work Phone: [facility] Work Phone: 09-27-2022 11:24-0500 Body weight 101.15 kg Cosme Hope Oberdouger Work Phone: [facility] Work Phone: 09-27-2022 11:24-0500 Diastolic blood pressure 73 mm[Hg] Cosme L Oberhauser Work Phone: [facility] Work Phone: 09-27-2022 11:24-0500 Heart rate 82 /min Cosme L Oberhauser Work Phone: [facility] Work Phone: 09-27-2022 11:24-0500 Systolic blood pressure 122 mm[Hg] Cosme L Oberhauser Work Phone: [facility] Work Phone: 08-02-2022 13:07-0500 Body temperature 97.7 [degF] Deshaun Ramirez MD Work Phone: [facility] 08-02-2022 13:07-0500 Body weight 98.43 kg Deshaun Ramirez MD Work Phone: [facility] 08-02-2022 13:07-0500 Diastolic blood pressure 78 mm[Hg] Deshaun Ramirez MD Work Phone: [facility] 08-02-2022 13:07-0500 Heart rate 84 /min Deshaun Ramirez MD Work Phone: [facility] 08-02-2022 13:07-0500 Respiratory rate 16 /min Deshaun Ramirez MD Work Phone: [facility] 08-02-2022 13:07-0500 SaO2% (BldA) [Mass fraction] 98 % Deshaun Ramirez MD Work Phone: [facility] 08-02-2022 13:07-0500 Systolic blood pressure 122 mm[Hg] Deshaun Ramirez MD Work Phone: [facility] 06-28-2022 11:42-0500 Body height 177.8 cm Cosme L Oberhauser Work Phone: [facility] Work Phone: 06-28-2022 11:42-0500 Body mass index (BMI) [Ratio] 31.71 kg/m2 Cosme L Oberhauser Work Phone: [facility] Work Phone: 06-28-2022 11:42-0500 Body surface area Derived from formula 2.18 m2 Cosme L Oberhauser Work Phone: [facility] Work Phone: 06-28-2022 11:42-0500 Body weight 100.25 kg Cosme L Oberhauser Work Phone: [facility] Work Phone: 06-28-2022 11:42-0500 Diastolic blood pressure 80 mm[Hg] Cosme L Oberhauser Work Phone: [facility] Work Phone: 06-28-2022 11:42-0500 Heart rate 78 /min Cosme L Oberhauser Work Phone: [facility] Work Phone: 06-28-2022 11:42-0500 Systolic blood pressure 123 mm[Hg] Cosme L Oberhauser Work Phone: [facility] Work Phone: 12-28-2021 11:42-0400 Body height 177.8 cm Cosme L Oberhauser Work Phone: [facility] Work Phone: 12-28-2021 11:42-0400 Body mass index (BMI) [Ratio] 31.71 kg/m2 Cosme L Oberhauser Work Phone: [facility] Work Phone: 12-28-2021 11:42-0400 Body surface area Derived from formula 2.18 m2 Cosme L Oberhauser Work Phone: [facility] Work Phone: 12-28-2021 11:42-0400 Body weight 100.25 kg Cosme L Oberhauser Work Phone: [facility] Work Phone: 12-28-2021 11:42-0400 Diastolic blood pressure 74 mm[Hg] Cosme L Oberhauser Work Phone: [facility] Work Phone: 12-28-2021 11:42-0400 Systolic blood pressure 117 mm[Hg] Cosme L Oberhauser Work Phone: [facility] Work Phone: 11-06-2021 13:40-0400 Body height 175.2 cm Cosme Oberhauser Other Phone: [facility] 11-06-2021 13:40-0400 Body temperature 98.06 [degF] Cosme Oberhauser Other Phone: [facility] 11-06-2021 13:40-0400 Diastolic blood pressure 90 mm[Hg] Cosme Oberhauser Other Phone: [facility] 11-06-2021 13:40-0400 Heart rate 80 /min Cosme Oberhauser Other Phone: [facility] 11-06-2021 13:40-0400 Respiratory rate 16 /min Cosme Oberhauser Other Phone: [facility] 11-06-2021 13:40-0400 SaO2% (BldA) [Mass fraction] 98 % Cosem Oberhauser Other Phone: [facility] 11-06-2021 13:40-0400 Systolic blood pressure 132 mm[Hg] Cosme Oberhauser Other Phone: [facility] 06-29-2021 11:04-0500 Body height 177.8 cm Cosme L Oberhauser Work Phone: [facility] Work Phone: 06-29-2021 11:04-0500 Body mass index (BMI) [Ratio] 33 kg/m2 Cosme L Oberhauser Work Phone: [facility] Work Phone: 06-29-2021 11:04-0500 Body surface area Derived from formula 2.22 m2 Cosme L Oberhauser Work Phone: [facility] Work Phone: 06-29-2021 11:04-0500 Body temperature 97.9 [degF] Cosme L Oberhauser Work Phone: [facility] Work Phone: 06-29-2021 11:04-0500 Body weight 104.33 kg Cosme L Oberhauser Work Phone: [facility] Work Phone: 06-29-2021 11:04-0500 Diastolic blood pressure 71 mm[Hg] Cosme L Oberhauser Work Phone: [facility] Work Phone: 06-29-2021 11:04-0500 Heart rate 83 /min Cosme L Oberhauser Work Phone: [facility] Work Phone: 06-29-2021 11:04-0500 Systolic blood pressure 114 mm[Hg] Cosme L Oberhauser Work Phone: [facility] Work Phone: 03-30-2021 11:00-0400 Body height 177.8 cm Cosme L Oberhauser Work Phone: [facility] Work Phone: 03-30-2021 11:00-0400 Body mass index (BMI) [Ratio] 33 kg/m2 Cosme L Oberhauser Work Phone: [facility] Work Phone: 03-30-2021 11:00-0400 Body surface area Derived from formula 2.22 m2 Cosme L Oberhauser Work Phone: [facility] Work Phone: 03-30-2021 11:00-0400 Body temperature 97.6 [degF] Cosme L Oberhauser Work Phone: [facility] Work Phone: 03-30-2021 11:00-0400 Body weight 104.33 kg Cosme L Oberhauser Work Phone: [facility] Work Phone: 03-30-2021 11:00-0400 Diastolic blood pressure 76 mm[Hg] Cosme L Oberhauser Work Phone: [facility] Work Phone: 03-30-2021 11:00-0400 Heart rate 73 /min Cosme L Oberhauser Work Phone: [facility] Work Phone: 03-30-2021 11:00-0400 Systolic blood pressure 117 mm[Hg] Cosme L Oberhauser Work Phone: [facility] Work Phone: 01-19-2021 11:25-0400 Body height 177.8 cm Cosme L Oberhauser Work Phone: [facility] Work Phone: 01-19-2021 11:25-0400 Body mass index (BMI) [Ratio] 34.29 kg/m2 Cosme L Oberhauser Work Phone: [facility] Work Phone: 01-19-2021 11:25-0400 Body surface area Derived from formula 2.25 m2 Cosme L Oberhauser Work Phone: [facility] Work Phone: 01-19-2021 11:25-0400 Body temperature 97.8 [degF] Cosme L Oberhauser Work Phone: [facility] Work Phone: 01-19-2021 11:25-0400 Body weight 108.41 kg Cosme Joaquin Work Phone: [facility] Work Phone: 01-19-2021 11:25-0400 Diastolic blood pressure 86 mm[Hg] Cosme Joaquin Work Phone: [facility] Work Phone: 01-19-2021 11:25-0400 Heart rate 104 /min Cosme Joaquin Work Phone: [facility] Work Phone: 01-19-2021 11:25-0400 Systolic blood pressure 127 mm[Hg] Cosme Joaquin Work Phone: [facility] Work Phone: Encounters Encounter Date Encounter Type Care Provider Facility Start: 10-15-2024 End: 10-15-[address] Cosme Joaquin DO Work Phone: [facility] Work Phone: Start: 10-15-2024 End: 10-15-2024 Patient encounter procedure Janine Finley SEED YEAST OPERATOR-C -Outpatient Breast Imaging Work Phone: Start: 10-15-2024 End: 10-15-2024 ambulatory Janine Finley Facility:[facility] Start: 06-20-2024 Encounter for gynecological examination (general) (routine) without abnormal findings Janine Finley [facility] Start: 06-20-2024 End: 06-20-2024 ambulatory Cosme Joaquin Facility:[facility] Start: 06-15-2024 ambulatory SAMANTHA RENAE [facility] Start: 06-15-2024 End: 06-15-2024 Office outpatient new 30 minutes Samantha Renae SAGGER SOAK-REPAIR OPERATOR Work Phone: [facility] Comment on above: Acute non-recurrent sinusitis, unspecified location (Primary Dx); Acute cough Start: 04-23-2024 End: 04-23-2024 Office outpatient visit 15 minutes Cosme Joaquin DO Work Phone: [facility] Comment on above: Chronic migraine wit hout aura without status migrainosus, not intractable (Primary Dx); Anxiety and depression Start: 04-23-2024 End: 04-23-2024 ambulatory [facility] Jayy [facility] Ambulatory Start: 04-17-2024 Encounter for [facility] adult medical examination without abnormal findings Cosme Joaquin [facility] Start: 04-05-2024 End: 04-05-2024 ambulatory Cosme Joaquin Facility:[facility] Start: 11-22-2023 End: 11-22-2023 ambulatory [facility] Work Phone: Start: 11-22-2023 End: 11-22-2023 Patient encounter procedure [facility] Work Phone: Start: 11-22-2023 End: 11-22-2023 ambulatory Cosme Joaquin Facility:[facility] Start: 10-13-2023 End: 10-13-[address] Cosme Joaquin Work Phone: [facility] Work Phone: Start: 10-13-2023 End: 10-13-[address] Cosme Joaquin Work Phone: [facility]-Outpatient Breast Imaging Work Phone: Start: 10-10-2023 End: 10-10-2023 Office outpatient visit 25 minutes Cosme Joaquin DO Work Phone: [facility] Comment on above: Thyroid disease ([facility] vignesh Dx); Muscle spasm; Anxiety and depression; Chronic migraine without aura without status migrainosus, not intractable Start: 10-10-2023 End: 10-10-2023 ambulatory COSME Hope [facility]ulatory Start: 09-05-2023 End: 09-05-[address] [facility]: Start: 07-18-2023 End: 07-18-[address] Cosme Joaquin Work Phone: [facility] Work Phone: Start: 05-18-2023 End: 05-18-2023 ambulatory [facility] Work Phone: Start: 05-18-2023 End: 05-18-2023 [facility] Start: 04-04-2023 End: 04-04-2023 Office outpatient visit 15 minutes Cosme Joaquin Work Phone: [facility] Comment on above: Thyroid disease ([facility] vignesh Dx); Anxiety and depression; Chronic migraine without aura without status migrainosus, not intractable Start: 03-11-2023 End: 03-11-2023 ambulatory [facility] Work Phone: Start: 03-11-2023 End: 03-11-2023 [facility] Start: 12-15-2022 End: 12-15-2022 ambulatory [facility] Work Phone: Start: 12-15-2022 End: 12-15-2022 Patient encounter procedure [facility] Start: 12-01-2022 End: 12-01-2022 ambulatory [facility] Work Phone: Start: 12-01-2022 End: 12-01-2022 Patient encounter procedure [facility] Start: 10-29-2022 End: 10-29-2022 ambulatory [facility] Work Phone: Start: 10-29-2022 End: 10-29-2022 Patient encounter procedure [facility] Start: 09-27-2022 Office outpatient vi sit 15 minutes Cosme Joaquin Work Phone: [facility] Work Phone: Start: 09-27-2022 ambulatory DO COSME JOAQUIN Facility:[id number] Start: 09-23-2022 End: 09-23-2022 ambulatory [facility] Work Phone: Start: 09-23-2022 End: 09-23-2022 Patient encounter procedure [facility] Start: 08-26-2022 End: 08-26-2022 Patient encounter procedure [facility] Start: 08-25-2022 AUDIT Cosme Hope Oberfide user Work Phone: [facility] Work Phone: Start: 08-23-2022 AUDIT Cosme Hope Oberfide user Work Phone: [facility] Work Phone: Start: 2022 Rx Renewal Cosme L Oberha user Work Phone: [facility] Work Phone: Start: 08-16-2022 End: 08-16-2022 ambulatory [facility] Work Phone: Start: 08-16-2022 End: 08-16-2022 Patient encounter procedure [facility]patient Breast [facility] Start: 08-02-2022 End: 08-02-2022 ambulatory COSME JOAQUIN Facility:[facility] Start: 08-02-2022 End: 08-02-2022 Patient encounter procedure Deshaun Ramirez MD Work Phone: [facility] Comment on above: Sore throat (Primary Dx); Influenza-like illness; Acute cough Start: 07-23-2022 End: 07-23-2022 ambulatory [facility] Work Phone: Start: 07-23-2022 End: 07-23-2022 Patient encounter procedure [facility] Start: 06-28-2022 Office outpatient vi sit 15 minutes Comse Jayy Joaquin Work Phone: [facility] Work Phone: Start: 06-28-2022 ambulatory DO COSME JOAQUIN [facility]:[id number] Start: 06-22-2022 End: 06-22-2022 ambulatory [facility] Work Phone: Start: 06-22-2022 End: 06-22-2022 Patient encounter procedure [facility] Start: 05-27-2022 End: 05-27-2022 ambulatory [facility] Work Phone: Start: 05-27-2022 End: 05-27-2022 Patient encounter procedure [facility] Start: 04-27-2022 End: 04-27-2022 ambulatory [facility] Work Phone: Start: 04-27-2022 End: 04-27-2022 Patient encounter procedure [facility] Start: 03-22-2022 Rx Renewal Cosme L Oberha user Work Phone: [facility] Work Phone: Start: 02-24-2022 Rx Renewal Cosme L Oberha user Work Phone: [facility] Work Phone: Start: 01-22-2022 Refill Pascale joiner APRN.CNP Work Phone: [facility] Comment on above: Refill Request Start: 01-12-2022 End: 01-12-2022 Patient encounter procedure [facility] Start: 12-28-2021 Office outpatient vi sit 25 minutes Cosmenuzhat Trentashanti Work Phone: [facility] Work Phone: Start: 12-28-2021 ambulatory DO COSME JOHN EMANI Facility:[id number] Start: 11-27-2021 Rx Renewal Cosme L Oberha user Work Phone: [facility] Work Phone: Start: 11-06-2021 End: 11-06-2021 Emergency department patient visit Cosme Harding [facility] Start: 09-28-2021 AUDIT Cosme L Oberha user Work Phone: [facility] Work Phone: Start: 08-29-2021 Rx Renewal Cosme L Oberha user Work Phone: [facility] Work Phone: Start: 07-28-2021 Rx Renewal Cosme L Oberha user Work Phone: [facility] Work Phone: Start: 04-28-2021 Rx Renewal Cosme L Oberha user Work Phone: [facility] Work Phone: Start: 03-30-2021 Rx Renewal Cosme L Oberha user Work Phone: [facility] Work Phone: Start: 02-13-2021 AUDIT Cosme L Oberha user Work Phone: [facility] Work Phone: Start: 01-19-2021 Office outpatient vi sit 15 minutes Cosme Jayy Emani Work Phone: [facility] Work Phone: Start: 11-16-2020 Patient encounter procedure Ender Gamez PA-C Work Phone: [facility] Start: 11-16-2020 Progress Note Ender Cruz Work Phone: [facility] Start: 02-26-2020 End: 02-26-2020 Patient encounter procedure WOODY BENTLEY [facility] Start: 09-24-2019 End: 09-24-2019 Patient encounter procedure [facility] Start: 08-28-2018 End: 08-29-2018 Patient encounter procedure Cosme Joaquin Facility:[facility] Start: 08-28-2018 End: 08-29-2018 Patient encounter procedure [facility] Procedures Date Procedure Procedure Detail Performing Clinician Start: 10-15-2024 Screening mammography D r. Cosme Joaquin DO Work Phone: Start: 04-05-2024 Thyrotropin [Units/v olume] in Serum or Plasma Cosme Joaquin DO Work Phone: Start: 10-13-2023 Screening mammography D r. Cosme Joaquin Work Phone: Start: 10-10-2023 FOLLOW UP IN FAMILY MEDICINE COSME JOAQUIN Start: 03-11-2023 Thyrotropin [Units/v olume] in Serum or Plasma Cosme Joaquin DO Work Phone: Start: 08-16-2022 End: 08-16-2022 Screening mammography Start: 08-02-2022 STREP A MOLECULAR (POC) Cate Jackson APRN.CNP Work Phone: Start: 01-12-2022 US scan of thyroid Plan of Treatment Date Care Activity Detail Author Start: 2033 Zoster Vaccines (1 of 2) Zoste r Vaccines (1 of 2) [facility] Start: 04-22-2025 End: 04-22-2025 Patient encounter procedure 04/22/2025 11:40 AM EDT Office Visit [facility] [place] [address] [facility] [address] [place] [address] Cosme Joaquin, DO [address] [facility] [address] [facility] Start: 04-05-2025 Thyroid stimulating hormone measurement TSH Level [facility] Start: 09-05-2024 Diabetes mellitus screening Diabetes Screening [facility] Start: 04-08-2024 COVID-19 VACCINE ( season) COVID-19 VACCINE ( season) [facility] Start: 04-08-2024 COVID-19 Vaccine () COVID-19 Vaccine () [facility] Start: 04-08-2024 Influenza vaccination INFLUENZA VACC INE (#1) [facility] Start: 03-11-2024 Thyroid stimulating hormone measurement TSH Level [facility] Start: 2023 Lipid panel LIPID SCREENING [facility] Start: 2023 Screening for malign ant neoplasm of breast [facility] Start: 04-08-2023 COVID-19 Vaccine () COVID-19 Vaccine () [facility] Start: 04-08-2023 Influenza vaccination Influenza Vacc ine (#1) [facility] Start: 09-27-2022 FUV, Provider: Cosme Joaquin, Status: Pen, Time: 11:20 AM FUV, Provider: Cosme Joaquin, Status: Pen, Time: 11:20 AM [facility] Work Phone: Start: 06-28-2022 FUV, Provider: Cosme Joaquin, Status: Pen, Time: 11:40 AM FUV, Provider: Cosme Joaquin, Status: Pen, Time: 11:40 AM [facility] Work Phone: Start: 04-08-2022 Influenza vaccination C [facility] Start: 12-28-2021 FUV, Provider: Cosme Joaquin, Status: Pen, Time: 11:40 AM FUV, Provider: Cosme Joaquin, Status: Pen, Time: 11:40 AM [facility] Work Phone: Start: 12-28-2021 Patient encounter procedure [facility] Medicine [facility] Start: 06-29-2021 FUV, Provider: Cosme Joaquin, Status: Pen, Time: 11:00 AM FUV, Provider: Cosme Joaquin, Status: Pen, Time: 11:00 AM [facility] Work Phone: Start: 04-25-2021 ANNUAL PCP TEAM [employer] CHEMA DISEASE VISIT ANNUAL PCP TEAM CHRONIC DISEASE VISIT [facility] Start: 03-03-2021 DTaP/Tdap/Td Vaccine s (7 - Td or Tdap) DTaP/Tdap/Td Vaccines (7 - Td or Tdap) [facility] Start: 03-02-2021 FUV, Provider: Cosme Joaquin, Status: Pen, Time: 11:40 AM FUV, Provider: Cosme Joaquin, Status: Pen, Time: 11:40 AM [facility] Work Phone: Start: 02-16-2021 COVID-19 VACCINE (3 - Booster for Moderna series) COVID-19 VACCINE (3 - Booster for Moderna series) [facility] Start: 11-14-2020 COVID-19 VACCINE (3 - Booster for Moderna series) COVID-19 VACCINE (3 - Booster for Moderna series) [facility] Start: 11-14-2020 COVID-19 Vaccine (3 - Moderna series) COVID-19 Vaccine (3 - Moderna series) [facility] Start: 07-22-2015 PAP TESTING PAP TESTING [facility] Start: 2013 HPV TESTING HPV TESTING [facility] Start: 06-19-2009 Varicella vaccination [facility] Start: 2004 Screening for malign ant neoplasm of cervix [facility] Start: 2002 Hepatitis B vaccination HEP B VACCINE (1 of 3 - 19+ 3-dose series) [facility] Start: 2002 Third diphtheria, tetanus and acellular pertussis (DTaP) vaccination TDAP (ADULT) [facility] Start: 2002 Urine microalbumin profile DTAP,TDAP,TD (1 - Tdap) [facility] Start: 2001 HEPATITIS C SCREENING HEPATITIS C [facility] Start: 2001 Hepatitis C screening Hepatitis C Sc [facility] Start: 1998 HIV screening HIV SCREENING DISCUSSION [facility] Start: 1983 HEPATITIS B (1 of 3 - 3-dose series) HEPATITIS B (1 of 3 - 3-dose series) [facility] Start: 1983 Hepatitis C screening HEPATITI S C VIRUS SCREENING [facility] Start: 1983 HIV screening HIV Screening [facility] Start: 1983 Lipid panel Lipid Panel [facility] Start: 1983 Tetanus vaccination TETANUS [facility] Start: 1983 Yearly Adult Physical Yearly Adult P hysical [facility] End: 04-04-2024 TSH with reflex to Free T4 if abnormal TSH with reflex to Free T4 if abnormal Lab Routine Thyroid disease every 6 weeks for 6 Occurrences starting 04/04/2023 until 04/04/2024 [facility] Service Area Work Phone: Comment on above: every 6 weeks for 6 Occurrences starting 04/04/2023 until 04/04/2024 Immunizations Immunization Date Immunization Notes Care Provider Bindu burciaga 09-19-2020 Moderna COVID-19 Vaccine 100 MCG/0.5ML Intramuscular Suspension Cosme L Oberhauser Work Phone: [facility] Work Phone: 08-19-2020 Moderna COVID-19 Vaccine 100 MCG/0.5ML Intramuscular Suspension Cosme L Oberhauser Work Phone: [facility] Work Phone: 06-03-2020 Influenza, injectabl e, [place] Canine Kidney, preservative free, quadrivalent Cosme L Oberhauser Work Phone: [facility] Work Phone: 06-03-2020 influenza virus vaccine, unspecified formulation Cosme Oberhauser DO Work Phone: [facility] Work Phone: 10-03-2019 influenza, injectabl e, quadrivalent, preservative free Cosme Celiser Work Phone: [facility] Work Phone: 11-17-2015 poliovirus vaccine, inactivated Cosme Celiser Work Phone: [facility] Work Phone: 06-18-2014 influenza, seasonal, injectable Cosme Celiser Work Phone: [facility] Work Phone: 09-15-2011 hepatitis A vaccine, pediatric/adolescent dosage, 2 dose schedule Cosme Celiser Work Phone: [facility] Work Phone: 03-03-2011 hepatitis A vaccine, pediatric/adolescent dosage, 2 dose schedule Cosme Celiser Work Phone: [facility] Work Phone: 03-03-2011 tetanus toxoid, redu art diphtheria toxoid, and acellular pertussis vaccine, adsorbed Cosme Celiser Work Phone: [facility] Work Phone: 03-01-2011 typhoid vaccine, parenteral, other than acetone-killed, dried Cosme Celiser Work Phone: [facility] Work Phone: 05-22-2009 novel [id number], preservative-free, injectable Cosme Celiser Work Phone: [facility] Work Phone: 05-21-2009 influenza virus vaccine, whole virus Cosme Hope Oberhauser Work Phone: [facility] Work Phone: 08-08-2003 pneumococcal polysaccharide vaccine, 23 valent Ender Gamez PA-C Work Phone: [facility] Work Phone: 07-19-2002 pneumococcal polysaccharide vaccine, 23 valent Cosme Hope Oberhauser Work Phone: [facility] Work Phone: 09-05-1996 hepatitis B vaccine, pediatric or pediatric/adolescent dosage Cosme Hope Oberhauser Work Phone: [facility] Work Phone: 03-20-1996 hepatitis B vaccine, pediatric or pediatric/adolescent dosage Cosme Hope Oberhauser Work Phone: [facility] Work Phone: 02-14-1996 hepatitis B vaccine, pediatric or pediatric/adolescent dosage Cosme Hope Oberhauser Work Phone: [facility] Work Phone: 02-14-1996 measles, mumps and rubella virus vaccine Cosme Hope Oberhauser Work Phone: [facility] Work Phone: 12-14-1988 diphtheria, tetanus toxoids and acellular pertussis vaccine, unspecified formulation Cosme Hope Oberhauser Work Phone: [facility] Work Phone: 12-14-1988 trivalent poliovirus vaccine, live, oral Cosme Hope Oberhauser Work Phone: [facility] Work Phone: 02-20-1985 diphtheria, tetanus toxoids and acellular pertussis vaccine, unspecified formulation Cosme Hope Oberhauser Work Phone: [facility] Work Phone: 02-21-1984 diphtheria, tetanus toxoids and pertussis vaccine Cosme Trenterhauser Work Phone: [facility] Work Phone: 02-21-1984 trivalent poliovirus vaccine, live, oral Cosme Hope Oberhauser Work Phone: [facility] Work Phone: 1983 diphtheria, tetanus toxoids and pertussis vaccine Cosme Hope Oberhauser Work Phone: [facility] Work Phone: 1983 trivalent poliovirus vaccine, live, oral Cosme Hope Oberhauser Work Phone: [facility] Work Phone: 1983 measles, mumps and rubella virus vaccine Cosme Hope Oberhauser Work Phone: [facility] Work Phone: 1983 diphtheria, tetanus toxoids and pertussis vaccine Cosme Hope Oberhauser Work Phone: [facility] Work Phone: 1985 trivalent poliovirus vaccine, live, oral Cosme Hope Oberhauser Work Phone: [facility] Work Phone: Payers Date Payer Category Payer Self-pay [id number] formerly [facility], 1928–1983 2020 Unknown [employer]E PPO [id number] 2020-[facility] [phone] [id number] [id number] [place] [id number] O [id number] 2020 Unknown [id number] 2018 Unknown 2013 Unknown [id number] 1983 Unknown [id number] 1983 Unknown [id number] 1983 Unknown [id number] 1983 Unknown [id number] 1983 Unknown [id number] 1983 Unknown [id number] 1983 Unknown [id number] 1983 Unknown [id number] 1983 Unknown [id number] Unknown [id number] Unknown [id number] Unknown [id number] Unknown [id number] Unknown [id number] Unknown [id number] Social History Date Type Detail Facility Start: 04-04-2023 End: 10-10-2023 Social alcohol use Social alcohol use [facility] Work Phone: Start: 08-17-2020 End: 07-18-2023 Tobacco smoking consumption unknown [facility] Start: 12-14-2012 End: 06-20-2024 Tobacco smoking status WIIS Ex-smoker [facility] Work Phone: End: 01-07-2006 History of tobacco use Current smoker [facility] Work Phone: Start: 12-14-2012 End: 04-04-2023 Tobacco use and exposure Smokeless tobacco non-user [facility] Work Phone: Start: 04-25-2020 End: 04-23-2024 Alcohol intake Current drinker of alcohol (finding) [facility] Start: 04-23-2020 End: 04-25-2020 History SDOH Alcohol Frequency 2 [facility] Start: 04-23-2020 End: 04-25-2020 History SDOH Alcohol Std Drinks 1 [facility] Start: 09-16-2011 History SDOH Alcohol Comment occasionally wine [facility] Start: 04-23-2020 End: 04-25-2020 History SDOH Social Connections Phone 5 [facility] Start: 04-23-2020 History SDOH Social Connections Meetings 3 [facility] Start: 04-23-2020 History SDOH Physical Activity MPS 4 [facility] Start: 04-23-2020 Education 16 [facility] Start: 1985 Sex Assigned At Female [facility] Start: 04-06-2021 End: 10-10-2023 Exposure to SARS-CoV-2 (event) Not sure [facility] End: 01-07-2006 History of tobacco use Cigarette Smoker [facility] Work Phone: Start: 08-02-2022 Tobacco Comment 5 cigarettes per day [facility] Start: 04-04-2023 End: 06-15-2024 Tobacco smoking status WIIS Never smoked tobacco [facility] Work Phone: Start: 04-04-2023 End: 10-10-[address] [facility] Work Phone: Start: 04-04-2023 Gender identity Identifies as female gender (finding) [facility] Work Phone: Start: 04-04-2023 Sexual orientation Heterosexual (finding) [facility] Work Phone: Start: 06-15-2024 Alcoholic beverage intake Ex-drinker (finding) [facility] Start: 1985 Sex assigned at Not on file [facility] Start: 04-23-[address] [facility] Work Phone: Start: 10-24-2024 Sex Female (finding) [facility] Clinical Notes 05-16-2007 to 06-15-2024 Samantha Renae APRN-[facility] - 06/15/2024 1:40 PM Latha Joaquin, DO - 04/23/2024 11:20 AM EDIsatu Joaquin, DO - 10/10/2023 11:20 AM Latha Joaquin, DO - 04/04/2023 11:20 AM EDT Note Date & Type Note Facility 06-15-2024 History of Present illness Narrative Formatting of this note is different fro m the original. HPI Sherita Yu female 1985 [facility] with Chief Complaint Patient presents with Cough Patient c/o cough and chest congestion x 1 week Patient presents with sinus congestion and cough worsening over the last week. Symptoms not improving with [id number] medications. She has now developed fevers. No known exposures. 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 History Allergies Allergen Reactions Penicillins Rash and Anaphylaxis Codeine Nausea Only and Hives Reaction as a child and is unknown Current Outpatient Medications Medication Sig buPROPion 300 MG tablet XL TAKE 1 TABLET (300 MG) BY MOUTH ONCE DAILY. busPIRone HCl 30 MG tablet TAKE 1 TABLET (30 MG) BY MOUTH 2 TIMES A DAY. Cyclobenzaprine 10 MG tablet Ergocalciferol 1.25 MG (52267 UT) capsule Take 1 capsule by mouth once a week. levothyroxine 137 MCG tablet TAKE 1 TABLET DAILY TUESDAY THROUGH TUESDAY; TAKE 2 TABLETS ON TUESDAY traZODone 50 MG tablet Take 1 tablet (50 mg) by mouth as needed at bedtime for sleep. Venlafaxine HCl 225 MG tablet ER TAKE 1 TABLET (225 MG) BY MOUTH ONCE DAILY. Azithromycin (Zithromax Z-Julio C) 250 MG tablet Take 2 tablets (500 mg) on Day 1, then 1 tablet (250 mg) daily on Days 2-5 benzonatate 200 MG capsule Take 1 capsule by mouth 3 times daily as needed for Cough. History reviewed. No pertinent family history. No past medical history on file. No past surgical history on file. Social History Socioeconomic History Marital status: Spouse name: Not on file Number of children: Not on file Years of education: Not on file Highest education level: Not on file Occupational History Not on file Tobacco Use Smoking status: Never Smokeless tobacco: Never Vaping Use Vaping status: Never Used Substance and Sexual Activity Alcohol use: Not Currently Drug use: Never Sexual activity: Not on file Other Topics Concern Service Not Asked Blood Transfusions Not Asked Caffeine Concern Not Asked Occupational Exposure Not Asked Hobby Hazards Not Asked Sleep Concern Not Asked Stress Concern Not Asked Weight Concern Not Asked Special Diet Not Asked Back Care Not Asked Exercise Not Asked Bike Helmet Not Asked Seat Belt Not Asked Domestic Violence No Social History Narrative Not on file Social Determinants of Health Financial Resource Strain: Low Risk (04/25/2020) Received from [facility] Overall Financial Resource Strain (CARDIA) Difficulty of Paying Living Expenses: Not hard at all Food Insecurity: No Food Insecurity (04/25/2020) Received from [facility] Hunger Vital Sign Worried About Running Out of Food in the Last Year: Never true Ran Out of Food in the Last Year: Never true Transportation Needs: No Transportation Needs (04/25/2020) Received from [facility] PRAPARE - Transportation Lack of Transportation (Medical): No Lack of Transportation (Non-Medical): No Physical Activity: Insufficiently Active (04/23/2020) Received from [facility] Exercise Vital Sign Days of Exercise per Week: 2 days Minutes of Exercise per Session: 40 min Stress: Stress Concern Present (04/23/2020) Received from [facility] [place] [employer] [employer] - Occupational Stress Questionnaire Feeling of Stress : Very much Social Connections: Moderately Integrated (04/23/2020) Received from [facility] Social Connection and Isolation Panel [NHANES] Frequency of Communication with Friends and Family: More than three times a week Frequency of Social Gatherings with Friends and Family: Once a week Attends [employer] Services: Never Active Member of Clubs or Organizations: Yes Attends Club or Organization Meetings: More than 4 times per year Marital Status: Intimate Partner Violence: Not on file Housing Stability: Not on file ROS Review of Systems 8 systems reviewed with patient, negative unless specifically mentioned in history of present illness PHYSICAL EXAM Visit Vitals BP 126/72 (BP Location: Right arm, BP Position: Sitting) Pulse 77 Temp 98.2 F (36.8 C) (Temporal) Resp 16 Ht 1.778 m (5' 10) Wt 92.1 kg (203 lb) SpO2 100% BMI 29.13 kg/m Physical Exam Vitals and nursing note reviewed. Constitutional: General: She is not in acute distress. Appearance: Normal appearance. She is well-developed. She is not ill-appearing or diaphoretic. HENT: Head: Normocephalic. Right Ear: Tympanic membrane normal. Left Ear: Tympanic membrane normal. Nose: Congestion present. Mouth/Throat: Mouth: Mucous membranes are moist. Pharynx: Oropharynx is clear. Eyes: Pupils: Pupils are equal, round, and reactive to light. Cardiovascular: Rate and Rhythm: Normal rate and regular rhythm. Heart sounds: Normal heart sounds. Pulmonary: Effort: Pulmonary effort is normal. No respiratory distress. Breath sounds: Normal breath sounds. Musculoskeletal: Cervical back: Neck supple. Lymphadenopathy: Cervical: No cervical adenopathy. Skin: General: Skin is warm and dry. Capillary Refill: Capillary refill takes less than 2 seconds. Neurological: General: No focal deficit present. Mental Status: She is alert and oriented to person, place, and time. Psychiatric: Mood and Affect: Mood normal. Behavior: Behavior normal. RESULTS No results found for this or any previous visit (from the past 2 hour(s)). ASSESSMENT/PLAN 1. Acute non-recurrent sinusitis, unspecified location 2. Acute cough Orders Placed This Encounter Azithromycin (Zithromax Z-Julio C) 250 MG tablet benzonatate 200 MG capsule Acute sinusitis treated with azithromycinJame. Discussed supportive home care, rguu-[id number] medications. If symptoms worsen patient was advised to follow up in our office, primary care provider or the Emergency Dept. Benefits, Risks, Contraindications, and Complications of recommended treatments were explained. The patient understands and agrees to proceed with plan. AIDEN Penn 06/15/2024 documented in this encounter [facility] 04-23-2024 History of Present illness Narrative Formatting of this note is different fro m the original. Subjective Patient ID: Sherita Yu is a 38 y.o. female who presents for Follow-up (6 month). HPI Patient is here today for 6 mo follow up Pt reports that she has started homeschooling her 7 year old. She has started testosterone pellets and she reports that her sleeping is a lot better, going through [facility] in [place], has just been doing it for 4 weeks. Review of Systems Constitutional: Negative for appetite change. HENT: Negative for congestion and sinus pressure. Gastrointestinal: Negative for constipation and vomiting. Objective BP 110/72 Pulse 78 Ht 1.778 m (5' 10) Wt 90.7 kg (200 lb) BMI 28.70 kg/m Physical Exam Constitutional: General: She is not in acute distress. Appearance: Normal appearance. HENT: Head: Normocephalic. Nose: Nose normal. Mouth/Throat: Pharynx: No oropharyngeal exudate. Eyes: General: Right eye: No discharge. Left [...] Items Addressed This Visit Anxiety and depression Migraines - Primary 1. Anxiety and depression,controlled stable - continue Effexor to 225mg po daily - continue Wellbutrin in the AM - continue BuSpar - trazodone 50mg po at bedtime 2. Hypothyroidism, hx of thyroid nodules - follows with endo - repeat tsh 2.38 - continue current dose of Synthroid 3. Migraines - continue Imitrex prn Final diagnoses: [F41.9, F32.A] Anxiety and depression [G43.709] Chronic migraine without aura without status migrainosus, not intractable documented in this encounter [facility] Work Phone: 10-10-2023 History of Present illness Narrative Formatting of this note is different fro m the original. Subjective Patient ID: Sherita Yu is a 38 y.o. female who presents for Follow-up (6 month/Issues with sleeping/Would like to discuss Magnesium ). HPI Pt is here today for 6 mo follow up. She recently saw endo, changed dosgae of syntheoid. Having trouble sleeping, taking mg. Has tried melatonin. She feels like her anxiety is well controlled. Review of Systems Constitutional: Positive for fatigue. Cardiovascular: Negative for chest pain and leg swelling. Objective BP 127/82 Pulse 88 Ht 1.778 m (5' 10) Wt 93.9 kg (207 lb) BMI 29.70 kg/m Physical Exam Constitutional: General: She is not in acute distress. Appearance: Normal appearance. HENT: Head: Normocephalic. Nose: Nose normal. Mouth/Throat: Mouth: Mucous membranes are dry. Pharynx: No oropharyngeal exudate. Eyes: General: Right eye: No discharge. Left [...] Anxiety and depression Thyroid disease - Primary Migraines Muscle spasm 1. Anxiety and depression,controlled stable - continue Effexor to 225mg po daily - continue Wellbutrin in the AM - continue BuSpar - trazodone 50mg po at bedtime 2. Hypothyroidism, hx of thyroid nodules - follows with endo - repeat tsh 2.38 - continue current dose of Synthroid 3. Migraines - continue Imitrex prn Final diagnoses: [M62.838] Muscle spasm [E07.9] Thyroid disease [F41.9, F32.A] Anxiety and depression [G43.709] Chronic migraine without aura without status migrainosus, not intractable documented in this encounter [facility] Work Phone: 04-04-2023 History of Present illness Narrative Formatting [...] Adult) Pulse 80 Ht 1.778 m (5' 10) Wt 93.9 kg (207 lb) BMI 29.70 [...] migrainosus, not intractable documented in this encounter [facility] Work Phone: 08-02-2022 Note HNO ID: [id number] Author: Deshaun Ramirez MD Service: ? Author [...] similar medicines-discuss with prescriber. Deshaun Ramirez MD [facility] 08-02-2022 History of Present illness Narrative Formatting [...] Deshaun Ramirez MD documented in this encounter [facility] 01-25-2022 Miscellaneous Notes Being prescribed by Cosme Joaquin Patient's request for medication is as follows: Pending Prescriptions Disp Refills BUPROPION XL 300 MG 24 HR TAB 90 tablet 0 Sig: TAKE ONE TABLET BY MOUTH EVERY DAY URBANO: Yes Please approve the above prescription(s) to electronically send to pharmacy. Niraj Barnes Ma documented in this encounter [facility] 11-16-2020 History of Present illness Narrative DATE [...] put her on prednisone, albuterol and discharged. Ender Gamez PA-C [id number] SSI File#: [id number] END OF DOCUMENT / CHANGE LOG FOLLOWS Last Edited By Elec. Signed By Ender GamezDYKLE Ender Gamez #[email or web address] on 12/10/2020 14:05 ET on 12/10/2020 14:05 ET Revision Number - 2 ^^^ Verified/Reviewed by 12/10/20 1405 [facility] PATIENT NAME: SHERITA YU [facility] MEDICAL REC #: [id number] [place] [address] SHAD STATCARE REPORT STATCARE PHYSICIAN documented in this encounter [facility] 05-16-2007 History of Past i llness Narrative Problem Noted Date Resolved Date Other acne 05/16/2007 09/08/2009 documented as of this encounter (statuses as of 01/12/2022) [facility] History of Past illness Narrative* Problem Noted Date Resolved Date Other acne 05/16/2007 09/08/2009 documented as of this encounter (statuses as of 01/25/2022) [facility] History of Past illness Narrative* Problem Noted Date Resolved Date Other acne 05/16/2007 09/08/2009 documented as of this encounter (statuses as of 08/07/2022) [facility]No [facility] Work Phone: Evaluation note* Diagnosis Sore throat- Primary Acute pharyngitis Influenza-like illness Influenza with other respiratory manifestations Acute cough documented in this encounter [facility] note* Diagnosis Thyroid disease- Primary Unspecified disorder of thyroid Anxiety and depression Chronic migraine without aura without status migrainosus, not intractable documented in this encounter [facility] Work Phone: Evaluation note* Diagnosis Thyroid disease- Primary Unspecified disorder of thyroid Muscle spasm Spasm of muscle Anxiety and depression Chronic migraine without aura without status migrainosus, not intractable documented in this encounter 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 Work Phone: History of Present [...] at night. * Buspar tid as needed [facility] Work Phone: History of Present illness Narrative* [...] She did have one in 11/2020 from [place] but that result was not scanned into AE. [facility] Work Phone: History of Present illness Narrative* [...] medication. * ALso due for thyroid labs. [facility] Work Phone: History of Present illness Narrative* Patient is here today for 3 mo follow up * Patient reports that she has had a fw episodes of anxiety but nothing like it was. * Overall she feels well on this current dosage and feels content. [facility] Work Phone: Instructions* Attachments The following attachments cannot be sent through Care Everywhere. * Sinusitis: Acute (Kazakh) [facility] Consultation (Routine) - Authorized Specialty Diagnoses / Procedures Referred By Jaun peck Referred To Contact Primary Care Procedures Follow Up In Primary Care - Established Cosme Joaquin DO [address] [place] [address] [place] [address] Referral ID Status Reason Start Date Expiration Date V isits Requested Visits Authorized [id number] Authorized 04/04/2023 10/01/[address] [facility] Work Phone: Reason for referral (narrative)* Consultation (Routine) - Authorized Specialty Diagnoses / Procedures Referred By Contmanish peck Referred To Contact Primary Care Procedures Follow Up In Primary Care - Established Cosme Joaquin DO [address] [facility] [place] [address] Referral ID Status Reason Start Date Expiration Date V isits Requested Visits Authorized [id number] Authorized 10/10/2023 10/09/2024 1 1 [facility] Work Phone: reason for referral (narrative)* Consultation (Routine) - Authorized Specialty Diagnoses / Procedures Referred By Jaun peck Referred To Contact Primary Care Procedures Follow Up In Primary Care - Established Cosme Joaquin DO [address] [facility] [place] [address] Referral ID Status Reason Start Date Expiration Date V isits Requested Visits Authorized [id number] Authorized 04/23/2024 04/23/[address] [facility] Work Phone: reason for referral (narrative)No reason for referral information availableWUK [facility] Work Phone: Summary Purpose Family History Unknown Family Member Name Dates Details Chronic [...] of diabetes m ellitus: Other(V18.0, Z83.3) Status:Active Relationship Condition Age at Onset Recorded Date/T rupa mother Anemia Unknown Arthritis Unknown Hypercholesterolemia Unknown father Hypertension Unknown Malignant neoplasm Unknown brother Mental disorder Unknown grandmother Malignant neoplasm of breast Unknown Diabetes mellitus Unknown grandfather Myocardial infarction Unknown Advance Directives Advance Directive Response Recorded Date/ Time Advance Directives Yes July 5:15am Living Will No August 17 2:01pm Power of Quantometer Operator No August 17, 2020 2:01pm Advance Directive Response Recorded Date/ Time Advance Directives Yes July 4:15am Living Will No August 17 1:01pm Power of Quantometer Operator No August 17, 2020 1:01pm Advance Directive Response Recorded Date/ Time Advance Directives Yes July 5:15am Chief Complaint * 35 y/o female presents [...] complaints * Pt happy with med therapy Chief Complaint and Reason for Visit Chief Complaint THYROID PAIN Chief Complaint SCREENING Chief Complaint SCREENING Z79.899 Chief Complaint Z79.899 Chief Complaint Thyroid [address]/did not do fasting labs today SCREENING Reason for Visit Hypothyroidism due t o Luis's thyroiditis Pre-diabetes Chief Complaint [address]/did n ot do fasting labs today SCREENING INT LABS Chief Complaint Admit Date SCREENING October 15, 2024 11: 56am Additional Source Comments INFORMATION SOURCE (unrecogn ized section and content) DATE CREATED AUTHOR 09/07/2018 [facility] DATE CREATED AUTHOR AUTHOR'S ORGANIZ ATION 03/01/2020 [facility] DATE CREATED AUTHOR AUTHOR'S ORGANIZ ATION 03/02/2020 [facility] DATE CREATED AUTHOR AUTHOR'S ORGANIZ ATION 09/27/2021 [facility] [place] DATE CREATED AUTHOR AUTHOR'S ORGANIZ ATION 11/10/2021 [facility] DATE CREATED AUTHOR AUTHOR'S ORGANIZ ATION 08/02/2022 [facility] DATE CREATED AUTHOR AUTHOR'S ORGANIZ ATION 09/27/2022 [facility] DATE CREATED AUTHOR AUTHOR'S ORGANIZ ATION 09/28/2022 [facility] DATE CREATED AUTHOR AUTHOR'S ORGANIZ ATION [facility]/20[facility] DATE CREATED AUTHOR AUTHOR'S ORGANIZ ATION 06/17/2024 [facility] DATE CREATED AUTHOR AUTHOR'S ORGANIZ ATION 10/27/2024 [facility] <item> Privacy Markings (unrecogniz ed section and [...] or prosecute any alcohol or drug abuse patient.[facility] Center[facility] the event this information is protected by the Federal Confidentiality of Alcohol and Drug Abuse Patient Records regulations: The Federal rules restrict any use of the information to criminally investigate or prosecute any alcohol or drug abuse patient.[facility] Center[facility] the event this information is protected by the Federal Confidentiality of Alcohol and Drug Abuse Patient Records regulations: The Federal rules restrict any use of the information to criminally investigate or prosecute any alcohol or drug abuse patient.[facility] Care Teams (unrecognized sec tion and content) Mobile Developer Relationship Specialty Start Date End Date Pascale Bucio APRN.REPAIR OPERATOR [address] [place] [address] PCP - General Family Practice 04/25/20 09/27/21 Cosme Joaquin [address] [place] [id number] PCP - General Internal Medicine 09/28/21 Mobile Developer Relationship Specialty Start Date End Date Cosme Joaquin [address] [place] [id number] PCP - General Internal Medicine 09/28/21 Mobile Developer Relationship Specialty Start Date End Date Cosme Joaquin [address] [place] [id number] PCP - General Internal Medicine 09/28/21 Team Status: Active Member Role Status Dates Dr. Cosme Joaquin , DO Family Provider Active Dr. Cosme Joaquin , DO Primary Care Provider Active Team Status: Inactive Member Role Status Dates Dr. Cosme Joaquin , DO Primary Care Provider Active Dr. Matias Stewart MD Attending Provider, Referring Pro vider Active Team Status: Inactive Member Role Status Dates Dr. Cosme Joaquin , DO Primary Care Provider Active Dr. Marcel Fuentes MD Attending Provider, Referring Pr ovider Active Team Status: Inactive Member Role Status Dates Dr. Cosme Joaquin DO Primary Care Provider Active Dr. Matias Stewart MD Attending Provider Active Team Status: Inactive Member Role Status Dates Dr. Cosme Joaquin DO Primary Care P janet, Attending Provider, Referring Provider Active Mobile Developer Relationship Specialty Start Date End Date Cosme Joaquin DO [address] [facility] [place] [address] PCP - General 08/25/20 Cosme Joaquin DO [address] [facility] [place] [address] PCP - [facility] PCP 08/08/21 Mobile Developer Relationship Specialty Start Date End Date Cosme Joaquin DO [address] [facility] [place] [address] PCP - General 08/25/20 Cosme Joaquin DO [address] [facility] [place] [address] PCP - [facility] PCP 08/08/21 Team Status: Inactive Member Role Status Dates Dr. Cosme Joaquin DO Primary Care Provider, Refer ring Provider Active Dr. Niraj Carlson MD Attending Provider Active Team Status: Inactive Member Role Status Dates Dr. Cosme Joqauin DO Primary Care Provider, Atten ding Provider Active Team Status: Inactive Member Role Status Dates Dr. Cosme Joaquin DO Primary Care Provider Active Dr. Niraj Carlson MD Attending Provider, Referring Provi fabby Active Mobile Developer Relationship Specialty Start Date End Date Cosme Joaquin DO [address] [facility] [place] [address] PCP - General 08/25/20 Cosme Joaquin DO [address] [facility] [place] [address] PCP - Mckay BRYANTO PCP 08/08/21 Team Status: Active Member Role Status Dates Dr. Cosme Joaquin DO Primary Care Provider Active Team Status: Inactive Member Role Status Dates Dr. Cosme Joaquin DO Primary Care Provider Active Start: October 15, 2024 End: October 15, 2024 NABIL Cleveland Attending Provider Active Start: October 15, 2024 End: October 15, 2024 NABIL [place] Referring Provider Active Start: October 15, 2024 End: October 15, 2024 Goals (unrecognized section and content) Goals may be documented in a n alternate sectionGoals may be documented in an alternate sectionGoals may be documented in an alternate sectionGoals may be documented in an alternate sectionGoals may be documented in an alternate sectionGoals may be documented in an alternate sectionGoals may be documented in an alternate sectionGoals may be documented in an alternate sectionGoals may be documented in an alternate sectionGoals may be documented in an alternate sectionGoals may be documented in an alternate sectionGoals may be documented in an alternate sectionGoals may be documented in an alternate sectionGoals may be documented in an alternate sectionGoals may be documented in an alternate sectionGoals may be documented in an alternate section Reason for Visit (unrecogniz ed section and content) Reason Comments Follow-up 6 month Specialty Diagnoses / Procedures Referred By Jaun peck Referred To Contact Primary Care Procedures Follow Up In Primary Care - Established Cosme Joaquin DO [address] [facility] [place] [address] Referral ID Status Reason Start Date Expiration Date V isits Requested Visits Authorized [id number] Authorized 10/10/2023 10/09/2024 1 1 Reason Comments Refill Request Reason Comments Sore Throat cough, low grade fev er, nasal congestion x 1 week Reason Comments Follow-up 6 monthIssues with markel Schwartz like to discuss Magnesium Referral ID Status Reason Start Date Expiration Date Visits Re quested Visits Authorized [id number] Closed 04/04/2023 10/01/2023 1 1 Reason Comments Cough Patient c/o cough an d chest congestion x 1 week FOR RECORDS PERTAINING TO PATIENTS WHO ARE [...] BE BASED ON THE PRIMARY CLINICAL RECORDS. [facility] [employer] [facility] provides no warranty or guarantee of the accuracy or completeness of information in this document.
== END | disposition home or self-care (01) ==
LOC: MFPLAB 12:23
PROVIDERS: PCP Family Medicine; Referring Provider Family Medicine; Visit Provider Family Medicine
DX: E03.9 Hypothyroidism, unspecified (principal)
CPT/HCPCS: 36415; 80053; 84439; 84443; 84481; 85027